=== PATIENT | female | born 1960 | race Caucasian/White ===

== ENCOUNTER → 2017-05-05 | Outpatient (CLI) | payer OTHER ==
--- NOTE | 2017-05-05 16:02 | XR ---
EXAMINATION TYPE: XR abdomen complete w decub DATE OF EXAM: 05/05/2017 COMPARISON: NONE HISTORY: Constipation lower abdominal pain TECHNIQUE: Supine, upright, and left side down lateral decubitus views of the abdomen are obtained. FINDINGS: Degenerative change lower lumbar spine. Nonspecific calcifications in the pelvis. All gas p attern nonspecific with no diagnostic evidence of obstruction. Metallic density overlying the right a bdomen may represent bowel content. Correlate clinically to exclude previous surgery. Assessment for free air limited due to lack of inclusion of the upper abdomen. IMPRESSION: 1. Limited exam as upper abdomen is not included. Bowel gas pattern demonstrates extensive retained f ecal debris correlate for constipation. 2. Metallic densities overlying the right abdomen could be related to previous surgical clips or repr esent bowel content. Correlate clinically.
== END | disposition home or self-care (01) ==
LOC: RADXRMAIN 15:40
PROVIDERS: ATTEND Family Medicine
DX: T18.2XXA Foreign body in stomach, initial encounter (principal)
CPT/HCPCS: 74020

== ENCOUNTER 2017-07-07 08:42 | Emergency (ER) | payer OTHER ==
[2017-07-07 08:46] VITALS: BP 117/68; PULSE 84; RESP 16; TEMP 97.2
--- NOTE | 2017-07-07 08:54 | ED ---
General Adult HPI - General Chief complaint: ENT Stated complaint: Ear Pain Time Seen by Provider: 07/07/17 08:48 Source: patient, RN notes reviewed Mode of arrival: ambulatory Limitations: no limitations - History of Present Illness Initial comments: Patient 56-year-old female who presents emergency room today with a chief complaint of left-sided ear pain over the last 2 days. Does admit to sore throat with some congestion. States that she began having some increased ear pain over the last day. States that all the clinics were closed today so she came here to the emergency room. Patient denies any drainage or discharge from the ear. Patient denies any recent fever, chills, shortness of breath, chest pain, back pain, abdominal pain, nausea or vomiting, numbness or tingling, dysuria or hematuria, constipation or diarrhea, headaches or visual changes, or any other complaints. - Related Data Previous Rx's Medication Instructions Recorded Amoxicillin 500 mg PO Q8H 10 Days day 07/07/17 Ibuprofen [Motrin] 600 mg PO Q6HR PRN #30 day 07/07/17 Allergies Allergy/AdvReac Type Severity Reaction Status Date / Time codeine Allergy Unknown Verified 07/07/17 08:46 Review of Systems ROS Statement: Those systems with pertinent positive or pertinent negative responses have been documented in the HPI. ROS Other: All systems not noted in ROS Statement are negative. Past Medical History Past Medical History: No Reported History History of Any Multi-Drug Resistant Organisms: None Reported Past Surgical History: No Surgical Hx Reported, Section Past Psychological History: No Psychological Hx Reported Smoking Status: Former smoker Past Alcohol Use History: Rare Past Drug Use History: None Reported, Marijuana General Exam - General Exam Comments Initial Comments: General: The patient is awake and alert, in no distress, and does not appear acutely ill. Eye: Pupils are equal, round and reactive to light, extra-ocular movements are intact. No nystagmus. There is normal conjunctiva bilaterally. No signs of icterus. Ears, nose, mouth and throat: There are moist mucous membranes and no oral lesions. Increased redness and erythema to the left ear canal with decreased bony landmarks consistent with otitis media. Right TM is clear. No tenderness over the mastoid. Neck: The neck is supple, there is no tenderness or JVD. Cardiovascular: There is a regular rate and rhythm. No murmur, rub or gallop is appreciated. Respiratory: Lungs are clear to auscultation, respirations are non-labored, breath sounds are equal. No wheezes, stridor, rales, or rhonchi. Musculoskeletal: Normal ROM, no tenderness. Strength 5/5. Sensation intact. Pulses equal bilaterally 2+. Neurological: A&O x 3. CN II-XII intact, There are no obvious motor or sensory deficits. Coordination appears grossly intact. Speech is normal. Skin: Skin is warm and dry and no rashes or lesions are noted. Psychiatric: Cooperative, appropriate mood & affect, normal judgment. Limitations: no limitations Course Vital Signs 07/07/17 08:43 Temperature 97.2 F L Pulse Rate 84 Respiratory 16 Rate Blood Pressure 117/68 O2 Sat by Pulse 97 Oximetry Disposition Clinical Impression: Left acute otitis media Disposition: HOME SELF-CARE Condition: Good Instructions: Otitis Media (ED) Additional Instructions: Please use medication as discussed. Please follow-up with family doctor in the next 2 days of symptoms have not improved. Please return to emergency room if the symptoms increase or worsen or for any other concerns. Prescriptions: Amoxicillin 500 mg PO Q8H 10 Days day Ibuprofen [Motrin] 600 mg PO Q6HR PRN #30 day PRN Reason: Pain Referrals: Olinda Mayberry MD [Primary Care Provider] - 1-2 days Time of Disposition: 08:53
== END 2017-07-07 09:15 | disposition home or self-care (01) ==
LOC: EC 08:42
DX: H66.92 Otitis media, unspecified, left ear (principal); J02.9 Acute pharyngitis, unspecified; R09.89 Other specified symptoms and signs involving the circulatory and respiratory systems; Z87.891 Personal history of nicotine dependence; Z88.5 Allergy status to narcotic agent
CPT/HCPCS: 99282

== ENCOUNTER 2017-08-22 10:25 | Day surgery (SDC) | payer OTHER ==
[2017-08-18 16:32] VITALS: BMI 35.4
[~2017-08-22 10:25] MED LIST: LACTATED RINGERS 1,000 ML IV SCH; LIDOCAINE 1% 20 ML VIAL (10MG/ML) FOR IV START INTRADERMA PRN
[2017-08-22 10:52] VITALS: RESP 16; TEMP 97.5
[2017-08-22] MEDS ORDERED: LIDOCAINE 1% INJ 10MG/ML (20 ML MDV) ONE (11:10)
[2017-08-22] MEDS ORDERED: PROPOFOL 10 MG/ML 20 ML VIAL IV ONE (11:10)
[2017-08-22 11:56] VITALS: BP 124/77; PULSE 70
--- NOTE | 2017-08-22 12:04 | P.PCN ---
Date of Procedure: 08/22/17 Procedure(s) Performed: Procedure: Total colonoscopy. Preoperative diagnosis: Left lower quadrant abdominal pain and change in bowel habits. Postoperative diagnosis: 1. Diverticulosis with significant diverticular disease in the sigmoid with no evidence of acute diverticulitis or strictures. 2. No polyps or cancer seen. Preparation: HalfLytely prep. Sedation: Was provided by anesthesia. Brief clinical history: The patient is a 56-year-old female was referred for this evaluation because of recurrent episodes of abdominal pain and constipation. She had a CT of the abdomen last month that showed diverticulosis with no evidence of acute diverticulitis or strictures. The patient believes she had 3 distinct episodes of pain that could have pain bouts of diverticulitis. She also experiences some pain during her menstrual periods. There is family history of colon cancer in her maternal grandfather Procedure: With the patient on her left lateral decubitus position and after informed consent and adequate sedation, the perianal area was inspected and it did not show any fissures or fistulas. There were no masses felt on digital rectal examination. The Olympus CFQ 160L video colonoscope was then inserted in the rectum in the usual fashion and advanced to the cecum. There was significant diverticular disease noted in the sigmoid with no evidence of acute diverticulitis or strictures. There was occasional small diverticular orifices seen scattered on the right side as well. The mucosa appeared healthy. No polyps or tumors were seen or any other pathology. I retroflexed the endoscope in the rectum before the endoscope was withdrawn. The patient tolerated the procedure well. Plan: The patient was reassured. Discussed dietary measures. She will follow- up with you as planned. As you know, if indeed these episodes of pain she gets are bouts of diverticulitis then she might be candidate for surgical evaluation , on the other hand, especially in light of her episodes of pain during menstrual periods, if this is related to spastic bowel or dietary intolerances , etc. then her treatment will be medical. I would be happy to see in follow- up in the office if her symptoms recur. As far as her screening colonoscopy, I would recommend repeat exam in 5 years.
== END 2017-08-22 12:17 | disposition home or self-care (01) ==
LOC: ORWHC2ENDO 10:25
DX: K57.30 Diverticulosis of large intestine without perforation or abscess without bleeding (principal); F32.9 Major depressive disorder, single episode, unspecified; G47.33 Obstructive sleep apnea (adult) (pediatric); Z88.5 Allergy status to narcotic agent; Z79.899 Other long term (current) drug therapy; Z80.0 Family history of malignant neoplasm of digestive organs; Z99.89 Dependence on other enabling machines and devices
CPT/HCPCS: 45378; 81025; J2001; J2704

== ENCOUNTER 2019-01-04 05:15 | Emergency (ER) | payer OTHER ==
[2019-01-04] MEDS ORDERED: KETOROLAC 30 MG/ML 1 ML VIAL IVP STA (06:05)
[2019-01-04] MEDS ORDERED: DIAZEPAM 5 MG/ML 2 ML INJ IVP STA (06:05)
--- NOTE | 2019-01-04 06:11 | ED ---
Back Pain HPI - General Source: patient, family Limitations: no limitations - History of Present Illness MD Complaint: back pain Onset/Timin -: days(s) Similar Symptoms Previously: No Place: home Severity: severe Quality: aching Consistency: constant Improves With: none Worsens With: none Associated Symptoms: denies other symptoms <Aakash Iniguez - Last Filed: 01/04/19 07:09> <Benito Moore - Last Filed: 01/04/19 08:17> - General Chief Complaint: Back Pain/Injury Stated Complaint: Back Pain Time Seen by Provider: 01/04/19 05:57 - History of Present Illness Initial Comments: This patient is a 58-year-old woman who presents to be evaluated for left upper back pain that is been going on for approximately 3 days. Patient describes as aching. She states that it had come on the day after she had helped her carry a heavy metal grate. Pain is constant, moderate to severe. She has not noted worsening or relieving factors. The patient states that her has tried rubbing her back which did help a little bit. She also tried warm compresses but that seemed to aggravate the pain. She states that ice did help to relieve a little bit as well. (Aakash Iniguez) - Related Data Home Medications Medication Instructions Recorded Confirmed Cephalexin [Keflex] 500 mg PO BID 01/04/19 01/04/19 Previous Rx's Medication Instructions Recorded Cyclobenzaprine [Flexeril] 10 mg PO TID PRN #12 tab 01/04/19 Allergies Allergy/AdvReac Type Severity Reaction Status Date / Time codeine AdvReac severe Verified 01/04/19 07:14 headache Opioids-Meperidine and AdvReac Nausea & Verified 01/04/19 07:14 Related Vomiting Review of Systems ROS Other: All systems not noted in ROS Statement are negative. Constitutional: Denies: fever, chills, weakness Respiratory: Denies: cough, dyspnea Cardiovascular: Reports: as per HPI, chest pain. Denies: palpitations, orthopnea, edema, syncope Gastrointestinal: Denies: abdominal pain, nausea, vomiting Genitourinary: Denies: dysuria, hematuria Musculoskeletal: Reports: as per HPI, back pain Skin: Denies: rash, lesions Neurological: Denies: headache, weakness, numbness Hematological/Lymphatic: Denies: easy bleeding <HiraAakash - Last Filed: 01/04/19 07:09> ROS Other: All systems not noted in ROS Statement are negative. <Benito Moore - Last Filed: 01/04/19 08:17> ROS Statement: Those systems with pertinent positive or pertinent negative responses have been documented in the HPI. Past Medical History Past Medical History: Cancer, Sleep Apnea/CPAP/BIPAP Additional Past Medical History / Comment(s): abdominal pain,fever,n/v,constip ation,no cpap,melanoma chest-2016 removed in office History of Any Multi-Drug Resistant Organisms: None Reported Past Surgical History: Section, Tubal Ligation Past Anesthesia/Blood Transfusion Reactions: Motion Sickness Past Psychological History: No Psychological Hx Reported Smoking Status: Former smoker Past Alcohol Use History: None Reported Past Drug Use History: None Reported - Past Family History Mother Family Medical History: No Reported History Father Family Medical History: Cancer Brother(s) Family Medical History: Cancer Additional Family Medical History / Comment(s): melanoma <Aakash Iniguez - Last Filed: 01/04/19 07:09> General Exam Limitations: no limitations General appearance: alert, in no apparent distress Head exam: Present: atraumatic, normocephalic Eye exam: Present: normal appearance. Absent: scleral icterus, conjunctival injection Neck exam: Present: normal inspection, full ROM. Absent: tenderness, meningismus Respiratory exam: Present: normal lung sounds bilaterally. Absent: respiratory distress, wheezes, rales, rhonchi, stridor Cardiovascular Exam: Present: regular rate, normal rhythm, normal heart sounds. Absent: systolic murmur, diastolic murmur, rubs, gallop GI/Abdominal exam: Present: soft. Absent: distended, tenderness, guarding, rebound Extremities exam: Present: normal inspection, normal capillary refill. Absent: pedal edema, calf tenderness Back exam: Present: normal inspection, paraspinal tenderness. Absent: CVA tenderness (R), CVA tenderness (L), vertebral tenderness Neurological exam: Present: alert. Absent: motor sensory deficit Skin exam: Present: warm, dry, intact, normal color. Absent: rash <HiraAakash - Last Filed: 01/04/19 07:09> Course Vital Signs 01/04/19 01/04/19 05:21 05:59 Temperature 98.2 F Pulse Rate 66 Respiratory 20 20 Rate Blood Pressure 121/83 O2 Sat by Pulse 96 Oximetry Medical Decision Making - Lab Data Result diagrams: 01/04/19 06:15 01/04/19 06:15 <Aakash Iniguez - Last Filed: 01/04/19 07:09> - Lab Data Result diagrams: 01/04/19 06:15 01/04/19 06:15 <Benito Moore - Last Filed: 01/04/19 08:17> - Medical Decision Making Patient was signed out to me by previous shift physician. Briefly, patient is a 58 her old female presents with left paraspinal upper back pain. Patient was worked up by previous shift physician with the workup. Patient negative d-dimer and cardiac workup. Patient was given analgesia with improvement of symptoms. This point patient's symptoms are secondary to musculoskeletal strain given history. Patient given baclofen. Patient reevaluated found to be in stable medical condition. Patient clear for discharge. Return parameters discussed. Prescription provided for Flexeril. Must follow-up with previous shift physician. (Benito Moore) - Lab Data Lab Results 01/04/19 01/04/19 01/04/19 Range/Units 06:15 06:15 06:15 WBC 6.1 (3.8-10.6) k/uL RBC 4.70 (3.80-5.40) m/uL Hgb 14.0 (11.4-16.0) gm/dL Hct 43.0 (34.0-46.0) % MCV 91.5 (80.0-100.0) fL MCH 29.7 (25.0-35.0) pg MCHC 32.5 (31.0-37.0) g/dL RDW 13.2 (11.5-15.5) % Plt Count 320 (150-450) k/uL Neutrophils % 43 % Lymphocytes % 45 % Monocytes % 8 % Eosinophils % 3 % Basophils % 0 % Neutrophils # 2.6 (1.3-7.7) k/uL Lymphocytes # 2.7 (1.0-4.8) k/uL Monocytes # 0.5 (0-1.0) k/uL Eosinophils # 0.2 (0-0.7) k/uL Basophils # 0.0 (0-0.2) k/uL D-Dimer (<0.60) mg/L FEU Sodium 140 (137-145) mmol/L Potassium 4.9 (3.5-5.1) mmol/L Chloride 109 H (98-107) mmol/L Carbon Dioxide 24 (22-30) mmol/L Anion Gap 7 mmol/L BUN 21 H (7-17) mg/dL Creatinine 0.58 (0.52-1.04) mg/dL Est GFR (CKD-EPI)AfAm >90 (>60 ml/min/1.73 sqM) Est GFR (CKD-EPI)NonAf >90 (>60 ml/min/1.73 sqM) Glucose 103 H (74-99) mg/dL Calcium 9.3 (8.4-10.2) mg/dL Troponin I <0.012 (0.000-0.034) ng/mL 01/04/19 Range/Units 06:15 WBC (3.8-10.6) k/uL RBC (3.80-5.40) m/uL Hgb (11.4-16.0) gm/dL Hct (34.0-46.0) % MCV (80.0-100.0) fL MCH (25.0-35.0) pg MCHC (31.0-37.0) g/dL RDW (11.5-15.5) % Plt Count (150-450) k/uL Neutrophils % % Lymphocytes % % Monocytes % % Eosinophils % % Basophils % % Neutrophils # (1.3-7.7) k/uL Lymphocytes # (1.0-4.8) k/uL Monocytes # (0-1.0) k/uL Eosinophils # (0-0.7) k/uL Basophils # (0-0.2) k/uL D-Dimer <0.17 (<0.60) mg/L FEU Sodium (137-145) mmol/L Potassium (3.5-5.1) mmol/L Chloride (98-107) mmol/L Carbon Dioxide (22-30) mmol/L Anion Gap mmol/L BUN (7-17) mg/dL Creatinine (0.52-1.04) mg/dL Est GFR (CKD-EPI)AfAm (>60 ml/min/1.73 sqM) Est GFR (CKD-EPI)NonAf (>60 ml/min/1.73 sqM) Glucose (74-99) mg/dL Calcium (8.4-10.2) mg/dL Troponin I (0.000-0.034) ng/mL Disposition <Aakash Iniguez - Last Filed: 01/04/19 07:09> Is patient prescribed a controlled substance at d/c from ED?: No Time of Disposition: 08:17 <Benito Moore - Last Filed: 01/04/19 08:17> Clinical Impression: Mid back pain Disposition: HOME SELF-CARE Prescriptions: Cyclobenzaprine [Flexeril] 10 mg PO TID PRN #12 tab PRN Reason: Pain Referrals: Olinda Mayberry MD [Primary Care Provider] - 1-2 days
[2019-01-04 06:32] LABS: Basophils % (A) 0 %; Eosinophils # (A) 0.2 k/uL (0-0.7); Eosinophils % (A) 3 %; Lymphocytes # (A) 2.7 k/uL (1.0-4.8); Lymphocytes % (A) 45 %; MCH 29.7 pg (25.0-35.0); MCHC 32.5 g/dL (31.0-37.0); MCV 91.5 fL (80.0-100.0); Mean Platelet Volume 6.9; Monocytes # (A) 0.5 k/uL (0-1.0); Monocytes % (A) 8 %; Neutrophils # (A) 2.6 k/uL (1.3-7.7); Neutrophils % (A) 43 %; Platelet Count 320 k/uL (150-450); RDW 13.2 % (11.5-15.5); WBC 6.1 k/uL (3.8-10.6)
[2019-01-04 06:40] LABS: Anion Gap 7 mmol/L; Blood Urea Nitrogen 21 mg/dL (7-17); Calcium 9.3 mg/dL (8.4-10.2); Carbon Dioxide 24 mmol/L (22-30); Chloride 109 mmol/L (98-107); Glucose 103 mg/dL (74-99); Potassium 4.9 mmol/L (3.5-5.1); Sodium 140 mmol/L (137-145)
[2019-01-04] MEDS ORDERED: HYDROmorphone 1 MG/ML 1 ML SYRINGE IVP STA (07:10)
[2019-01-04] MEDS ORDERED: BACLOFEN 10 MG TAB PO STA (07:32)
[2019-01-04 08:25] VITALS: BP 118/78; PULSE 65; RESP 18; TEMP 97.9
== END 2019-01-04 08:25 | disposition home or self-care (01) ==
LOC: EC 05:15
DX: M54.6 Pain in thoracic spine (principal); G47.30 Sleep apnea, unspecified; Z99.89 Dependence on other enabling machines and devices; Z87.891 Personal history of nicotine dependence; Z85.820 Personal history of malignant melanoma of skin; Z88.5 Allergy status to narcotic agent; Z53.29 Procedure and treatment not carried out because of patient's decision for other reasons
CPT/HCPCS: 36415; 93005; 85379; 80048; 84484; 85025; 99283; 96374; 96375; J3360; J1885

== ENCOUNTER 2020-03-28 16:36 | Inpatient (IN) | payer OTHER ==
[2020-03-28 18:05] LABS: Basophils % (A) 0 %; Eosinophils # (A) 0.1 k/uL (0-0.7); Eosinophils % (A) 0 %; HCT 41.4 % (34.0-46.0); HGB 13.4 gm/dL (11.4-16.0); Lymphocytes # (A) 1.8 k/uL (1.0-4.8); Lymphocytes % (A) 13 %; MCH 29.4 pg (25.0-35.0); MCHC 32.4 g/dL (31.0-37.0); MCV 90.9 fL (80.0-100.0); Mean Platelet Volume 6.5; Monocytes # (A) 0.7 k/uL (0-1.0); Monocytes % (A) 5 %; Neutrophils % (A) 80 %; Platelet Count 504 k/uL (150-450); RBC 4.55 m/uL (3.80-5.40); RDW 12.1 % (11.5-15.5); WBC 13.7 k/uL (3.8-10.6)
[2020-03-28 18:34] LABS: ALT 16 U/L (4-34); AST 25 U/L (14-36); African American GFR (CKD) >90 (>60 ml/min/1.73 sqM); Albumin 4.2 g/dL (3.5-5.0); Alkaline Phosphatase 98 U/L (38-126); Anion Gap 10 mmol/L; Blood Urea Nitrogen 11 mg/dL (7-17); Calcium 9.6 mg/dL (8.4-10.2); Carbon Dioxide 21 mmol/L (22-30); Chloride 105 mmol/L (98-107); Glucose 124 mg/dL (74-99); Non-African American GFR(CKD) >90 (>60 ml/min/1.73 sqM); Potassium 4.2 mmol/L (3.5-5.1); Sodium 136 mmol/L (137-145); Total Bilirubin 0.5 mg/dL (0.2-1.3); Total Protein 7.4 g/dL (6.3-8.2)
[2020-03-28] MEDS ORDERED: ASPIRIN 81 MG PO STA (19:49)
--- NOTE | 2020-03-28 19:53 | CT ---
EXAMINATION TYPE: CT abdomen pelvis w con DATE OF EXAM: 03/28/2020 COMPARISON: 07/21/2017 HISTORY: Nausea, vomiting, body aches and fever. CT DLP: 1320.3 mGycm Automated exposure control for dose reduction was used. CONTRAST: Performed with IV Contrast, patient injected with 100ml mL of Isovue 370. Images obtained from the diaphragm to the floor the pelvis with IV contrast. There is some patchy consolidation at the right posterior lung base with rounded 1.5 cm fluid density . There is small right pleural effusion. There is irregular 3 cm hypodense mass in the posterior righ t lobe of the liver. This appears to show delayed enhancement and consistent with hemangioma. Spleen is intact. There is no pancreatic mass. Stomach is intact. Gallbladder appears normal. Heart size is normal. There is no pericardial effusion. Kidneys show satisfactory contrast opacification. There is 1 cm hypodense rounded focus in the medial left kidney that could be a atypical cyst. There is no hydronephrosis. There is nonrotation of the r ight kidney. Ureters are not dilated. There is no retroperitoneal adenopathy. Bladder distends smooth ly. There is no inguinal hernia. There is no evidence of a pelvic mass. Uterus is anteverted. There a re sigmoid diverticula. There is no sign of diverticulitis. Appendix is close to the liver and appear s normal. There is no mesenteric edema. There is no ascites or free air. There are multiple sigmoid d iverticula. There are scattered diverticula in the descending colon. There is no evidence of a bowel obstruction. There is a mild degenerative first-degree L4-5 spondylolisthesis. The facet joints are i ntact. There is no compression fracture. Bony pelvis is intact. IMPRESSION: Consolidation at the right posterior lung base with rounded fluid density could relate to pneumonia a nd lung abscess and is a change compared to old exam. Small right pleural effusion. Colonic diverticulosis without diverticulitis. Normal appendix. Hypodense liver lesion in the posterior right lobe of the liver is possibly new compared to old CT sc an. Ultrasound recommended to confirm features of a hemangioma. Atypical cyst in the left kidney not changed in size compared to 07/21/2017 CT scan.
[2020-03-28] MEDS ORDERED: AZITHROMYCIN 500 MG TAB PO STA (19:57)
--- NOTE | 2020-03-28 20:00 | CT ---
EXAMINATION TYPE: CT chest angio for PE DATE OF EXAM: 03/28/2020 COMPARISON: None HISTORY: Dyspnea and painful expiration. CT DLP: 447.2 mGycm Automated exposure control for dose reduction was used. CONTRAST: Performed with IV Contrast, patient injected with 100ml mL of Isovue 370. There is some consolidation at the right posterior lung base with atelectasis. There is small right p leural effusion. There is 3 cm rounded area of fluid density at the right posterior lung base that co uld be an abscess within the right lower lobe. Heart size is normal. There is no pericardial effusion . There is mild coarsening of interstitial markings. There is no mediastinal adenopathy. Thoracic aorta is intact. There is no aneurysm or dissection. There are no hilar masses. I see no britany ling defects in the pulmonary arteries. The bony thorax is intact. There is no compression fracture. Sternum is intact. IMPRESSION: Right lower lobe consolidation and atelectasis with pleural fluid. Possible lung abscess. No evidence of pulmonary embolism.
[2020-03-28] MEDS ORDERED: PIPERACILLIN-TAZOBACTAM 3.375 GM in SODIUM CHLORIDE 0.9% 100 ML IVPB STA (20:02)
[2020-03-28] MEDS ORDERED: VANCOMYCIN IV PER PHARMACY 1 EACH MISC MISCELLANE PRN ×2 (20:02→23:48)
[2020-03-28 20:03] LABS: D-Dimer 0.56 mg/L FEU (<0.60); INR 1.1 (<1.2); Partial Thromboplastin Time 23.3 sec (22.0-30.0); Prothrombin Time 11.6 sec (9.0-12.0)
[2020-03-28] MEDS ORDERED: SODIUM CHLORIDE 0.9% 1,000 ML IV ONE (20:11)
[2020-03-28] MEDS ORDERED: SODIUM CHLORIDE 0.9% 500 ML 500 ML IV ONE (20:11)
[2020-03-28 20:14] LABS: C Reactive Protein 47.3 mg/L (<10.0); Magnesium 1.9 mg/dL (1.6-2.3)
[2020-03-28] MEDS ORDERED: VANCOMYCIN 1,500 MG in SODIUM CHLORIDE 0.9% 250 ML IVPB ONE (20:30)
[2020-03-28] MEDS: SODIUM CHLORIDE 0.9% 1,000 ML IV SCH (20:50)
--- NOTE | 2020-03-28 20:59 | ED ---
General Adult HPI - General Source: patient, RN notes reviewed, old records reviewed Mode of arrival: ambulatory Limitations: no limitations <Chris Barnard - Last Filed: 03/28/20 21:46> <Janette Davis - Last Filed: 04/02/20 23:14> - General Chief complaint: Fever Stated complaint: High Fever Time Seen by Provider: 03/28/20 17:03 - History of Present Illness Initial comments: 59-year-old female patient presents to ED for evaluation cough fever shortness of breath. Patient reports that starting on Tuesday 6 days ago she began to experience generalized myalgias. Patient reports that he continue to progress into some chest pain shortness of breath fevers. Patient assessed for Covid on Tuesday. She denies any prior lung issues never smoker no IV drug use. Denies any other complaints. Systemic: Pt denies fatigue, fever/chills, rash. Pt denies weakness, night sweats, weight loss. Neuro: Pt denies headache, visual disturbances, syncope or pre-syncope. HEENT: Pt denies ocular discharge or irritation, otalgia, rhinorrhea, pharyngitis or notable lymphadenopathy. Cardiopulmonary: Pt denies heart palpitations, dyspnea on exertion. Abdominal/GI: Pt denies abdominal pain, n/v/d. : Pt denies dysuria, burning w/ urination, frequency/urgency. Denies new onset urinary or bowel incontinence. MSK: Pt denies myalgia, loss of strength or function in extremities. Neuro: Pt denies new onset weakness, paresthesias. (Chris Barnard) - Related Data Home Medications Medication Instructions Recorded Confirmed No Known Home Medications 03/28/20 03/28/20 Allergies Allergy/AdvReac Type Severity Reaction Status Date / Time codeine AdvReac severe Verified 03/28/20 22:48 headache Opioids-Meperidine and AdvReac Nausea & Verified 03/28/20 22:48 Related Vomiting Review of Systems ROS Other: All systems not noted in ROS Statement are negative. <Chris Barnard - Last Filed: 03/28/20 21:46> ROS Other: All systems not noted in ROS Statement are negative. <Janette Davis - Last Filed: 04/02/20 23:14> ROS Statement: Those systems with pertinent positive or pertinent negative responses have been documented in the HPI. Past Medical History Past Medical History: Cancer, Sleep Apnea/CPAP/BIPAP Additional Past Medical History / Comment(s): abdominal pain,fever,n/v,constipation,no cpap,melanoma chest-2016 removed in office History of Any Multi-Drug Resistant Organisms: None Reported Past Surgical History: Section, Tubal Ligation Past Anesthesia/Blood Transfusion Reactions: Motion Sickness Past Psychological History: No Psychological Hx Reported Smoking Status: Never smoker Past Alcohol Use History: None Reported Past Drug Use History: None Reported - Past Family History Mother Family Medical History: No Reported History Father Family Medical History: Cancer Brother(s) Family Medical History: Cancer Additional Family Medical History / Comment(s): melanoma <Chris Barnard - Last Filed: 03/28/20 21:46> General Exam Limitations: no limitations <Chris Barnard - Last Filed: 03/28/20 21:46> - General Exam Comments Initial Comments: Constitutional: NAD, AOX3, Pt has pleasant affect. HEENT: NC/AT, trachea midline, neck supple, no lymphadenopathy. External ears appear normal, without discharge. Mucous membranes moist. Eyes PERRLA, EOM intact. There is no scleral icterus. No pallor noted. Cardiopulmonary: RRR, no murmurs, rubs or gallops, no JVD noted. Lungs CTAB in anterior and posterior syed. No peripheral edema. Abdominal exam: Abdomen soft and non-distended. Abdomen mildly tender right upper quadrant/right lower ribs. Bowel sounds active in LLQ. No hepatosplenomegaly. No ecchymosis Neuro: CN II-XII grossly intact. No nuchal rigidity. No raccon eyes, no sosa sign, no hemotympanum. No cervical spinal tenderness. MSK: No posterior calf tenderness bilaterally, homans sign negative bilaterally. Posterior tibialis and radial pulse +2 bilaterally. Sensation intact in upper and lower extremities. Full active ROM in upper and lower extremities, 5/5 stregnth. (Chris Barnard) Course Vital Signs 03/28/20 03/28/20 03/28/20 17:03 20:05 21:00 Temperature 100.4 F H 100.1 F H Pulse Rate 112 H 100 99 Respiratory 20 18 22 Rate Blood Pressure 116/74 113/73 113/73 O2 Sat by Pulse 95 98 95 Oximetry 03/28/20 22:09 Temperature Pulse Rate 68 Respiratory 18 Rate Blood Pressure 138/64 O2 Sat by Pulse 99 Oximetry Medical Decision Making - Lab Data Result diagrams: 03/28/20 17:50 03/28/20 17:50 - EKG Data -: EKG Interpreted by Me (and Dr. Davis ) <Chris Barnard - Last Filed: 03/28/20 21:46> - Lab Data Result diagrams: 03/30/20 08:23 04/02/20 06:21 <Janette Davis - Last Filed: 04/02/20 23:14> - Medical Decision Making 59-year-old female patient presents to ED for cough fever or shortness of breath ongoing for the last 6 days or so getting worse. Patient also displayed mild fever. Physical exam. Right upper quadrant/right lower rib tenderness. Patient reported that is where she is having her pain discomfort. Laboratory investigations reveal leukocytosis. CRP elevated. CT angios of her PE was performed this displayed right lower lobe consolidation and atelectasis with pleural fluid possible lung abscess. CT abdomen and pelvis displayed hypodense liver lesion possible hemangioma cysts unchanged from 2017 left kidney. EKG is nonischemic. Patient initiated on IV antibiotics fluids will be admitted for sepsis lung abscess further evaluation. Case discussed with Dr. Davis. (Chris Barnard) I was available for consultation in the emergency department. The history and physical exam were done by the midlevel provider. I was consulted for this patients care. I reviewed the case with the midlevel provider and based on their presentation of the patient, I agree with the assessment, medical decision making and plan of care as documented. Chart was dictated using [employer] dictation software. Attempts were made to correct any dictation errors however some typographical errors may persist. Patient was seen during a national state of emergency due to the Covid-19 pa ndemic. (Janette Davis) - Lab Data Lab Results 03/28/20 03/28/20 03/28/20 Range/Units 17:50 17:50 17:50 WBC 13.7 H (3.8-10.6) k/uL RBC 4.55 (3.80-5.40) m/uL Hgb 13.4 (11.4-16.0) gm/dL Hct 41.4 (34.0-46.0) % MCV 90.9 (80.0-100.0) fL MCH 29.4 (25.0-35.0) pg MCHC 32.4 (31.0-37.0) g/dL RDW 12.1 (11.5-15.5) % Plt Count 504 H (150-450) k/uL Neutrophils % 80 % Lymphocytes % 13 % Monocytes % 5 % Eosinophils % 0 % Basophils % 0 % Neutrophils # 11.0 H (1.3-7.7) k/uL Lymphocytes # 1.8 (1.0-4.8) k/uL Monocytes # 0.7 (0-1.0) k/uL Eosinophils # 0.1 (0-0.7) k/uL Basophils # 0.0 (0-0.2) k/uL PT (9.0-12.0) sec INR (<1.2) APTT (22.0-30.0) sec D-Dimer (<0.60) mg/L FEU Sodium 136 L (137-145) mmol/L Potassium 4.2 (3.5-5.1) mmol/L Chloride 105 (98-107) mmol/L Carbon Dioxide 21 L (22-30) mmol/L Anion Gap 10 mmol/L BUN 11 (7-17) mg/dL Creatinine 0.74 (0.52-1.04) mg/dL Est GFR (CKD-EPI)AfAm >90 (>60 ml/min/1.73 sqM) Est GFR (CKD-EPI)NonAf >90 (>60 ml/min/1.73 sqM) Glucose 124 H (74-99) mg/dL Plasma Lactic Acid Robbie 0.9 (0.7-2.0) mmol/L Calcium 9.6 (8.4-10.2) mg/dL Magnesium (1.6-2.3) mg/dL Ferritin (10.0-291.0) ng/mL Total Bilirubin 0.5 (0.2-1.3) mg/dL AST 25 (14-36) U/L ALT 16 (4-34) U/L Alkaline Phosphatase 98 (38-126) U/L Lactate Dehydrogenase (313-618) U/L Troponin I (0.000-0.034) ng/mL C-Reactive Protein (<10.0) mg/L Total Protein 7.4 (6.3-8.2) g/dL Albumin 4.2 (3.5-5.0) g/dL Procalcitonin (0.02-0.09) ng/mL Urine Color Urine Appearance (Clear) Urine pH (5.0-8.0) Ur Specific [place] (1.001-1.035) Urine Protein (Negative) Urine Glucose (UA) (Negative) Urine Ketones (Negative) Urine Blood (Negative) Urine Nitrite (Negative) Urine Bilirubin (Negative) Urine Urobilinogen (<2.0) mg/dL Ur Leukocyte Esterase (Negative) Urine RBC (0-5) /hpf Urine WBC (0-5) /hpf Ur Squamous Epith Cells (0-4) /hpf Urine Bacteria (None) /hpf Urine Mucus (None) /hpf Coronavirus (PCR) (Not Detected) 03/28/20 03/28/20 03/28/20 Range/Units 19:33 19:33 19:33 WBC (3.8-10.6) k/uL RBC (3.80-5.40) m/uL Hgb (11.4-16.0) gm/dL Hct (34.0-46.0) % MCV (80.0-100.0) fL MCH (25.0-35.0) pg MCHC (31.0-37.0) g/dL RDW (11.5-15.5) % Plt Count (150-450) k/uL Neutrophils % % Lymphocytes % % Monocytes % % Eosinophils % % Basophils % % Neutrophils # (1.3-7.7) k/uL Lymphocytes # (1.0-4.8) k/uL Monocytes # (0-1.0) k/uL Eosinophils # (0-0.7) k/uL Basophils # (0-0.2) k/uL PT 11.6 (9.0-12.0) sec INR 1.1 (<1.2) APTT 23.3 (22.0-30.0) sec D-Dimer 0.56 (<0.60) mg/L FEU Sodium (137-145) mmol/L Potassium (3.5-5.1) mmol/L Chloride (98-107) mmol/L Carbon Dioxide (22-30) mmol/L Anion Gap mmol/L BUN (7-17) mg/dL Creatinine (0.52-1.04) mg/dL Est GFR (CKD-EPI)AfAm (>60 ml/min/1.73 sqM) Est GFR (CKD-EPI)NonAf (>60 ml/min/1.73 sqM) Glucose (74-99) mg/dL Plasma Lactic Acid Robbie (0.7-2.0) mmol/L Calcium (8.4-10.2) mg/dL Magnesium 1.9 (1.6-2.3) mg/dL Ferritin 130.3 (10.0-291.0) ng/mL Total Bilirubin (0.2-1.3) mg/dL AST (14-36) U/L ALT (4-34) U/L Alkaline Phosphatase (38-126) U/L Lactate Dehydrogenase 500 (313-618) U/L Troponin I (0.000-0.034) ng/mL C-Reactive Protein 47.3 H (<10.0) mg/L Total Protein (6.3-8.2) g/dL Albumin (3.5-5.0) g/dL Procalcitonin (0.02-0.09) ng/mL Urine Color Urine Appearance (Clear) Urine pH (5.0-8.0) Ur Specific [place] (1.001-1.035) Urine Protein (Negative) Urine Glucose (UA) (Negative) Urine Ketones (Negative) Urine Blood (Negative) Urine Nitrite (Negative) Urine Bilirubin (Negative) Urine Urobilinogen (<2.0) mg/dL Ur Leukocyte Esterase (Negative) Urine RBC (0-5) /hpf Urine WBC (0-5) /hpf Ur Squamous Epith Cells (0-4) /hpf Urine Bacteria (None) /hpf Urine Mucus (None) /hpf Coronavirus (PCR) Not Detected (Not Detected) 03/28/20 03/28/20 03/28/20 Range/Units 19:33 19:33 20:54 WBC (3.8-10.6) k/uL RBC (3.80-5.40) m/uL Hgb (11.4-16.0) gm/dL Hct (34.0-46.0) % MCV (80.0-100.0) fL MCH (25.0-35.0) pg MCHC (31.0-37.0) g/dL RDW (11.5-15.5) % Plt Count (150-450) k/uL Neutrophils % % Lymphocytes % % Monocytes % % Eosinophils % % Basophils % % Neutrophils # (1.3-7.7) k/uL Lymphocytes # (1.0-4.8) k/uL Monocytes # (0-1.0) k/uL Eosinophils # (0-0.7) k/uL Basophils # (0-0.2) k/uL PT (9.0-12.0) sec INR (<1.2) APTT (22.0-30.0) sec D-Dimer (<0.60) mg/L FEU Sodium (137-145) mmol/L Potassium (3.5-5.1) mmol/L Chloride (98-107) mmol/L Carbon Dioxide (22-30) mmol/L Anion Gap mmol/L BUN (7-17) mg/dL Creatinine (0.52-1.04) mg/dL Est GFR (CKD-EPI)AfAm (>60 ml/min/1.73 sqM) Est GFR (CKD-EPI)NonAf (>60 ml/min/1.73 sqM) Glucose (74-99) mg/dL Plasma Lactic Acid Robbie (0.7-2.0) mmol/L Calcium (8.4-10.2) mg/dL Magnesium (1.6-2.3) mg/dL Ferritin (10.0-291.0) ng/mL Total Bilirubin (0.2-1.3) mg/dL AST (14-36) U/L ALT (4-34) U/L Alkaline Phosphatase (38-126) U/L Lactate Dehydrogenase (313-618) U/L Troponin I <0.012 (0.000-0.034) ng/mL C-Reactive Protein (<10.0) mg/L Total Protein (6.3-8.2) g/dL Albumin (3.5-5.0) g/dL Procalcitonin 0.10 H (0.02-0.09) ng/mL Urine Color Yellow Urine Appearance Clear (Clear) Urine pH 7.0 (5.0-8.0) Ur Specific [place] >1.050 H (1.001-1.035) Urine Protein Trace H (Negative) Urine Glucose (UA) Negative (Negative) Urine Ketones Negative (Negative) Urine Blood Trace H (Negative) Urine Nitrite Negative (Negative) Urine Bilirubin Negative (Negative) Urine Urobilinogen <2.0 (<2.0) mg/dL Ur Leukocyte Esterase Negative (Negative) Urine RBC 3 (0-5) /hpf Urine WBC 2 (0-5) /hpf Ur Squamous Epith Cells 2 (0-4) /hpf Urine Bacteria Rare H (None) /hpf Urine Mucus Rare H (None) /hpf Coronavirus (PCR) (Not Detected) - EKG Data EKG Comments: Ventricular rate 104, NE interval 144, QRS 90, QT/QTC 334/439. Sinus tachycardia, RSR or QR pattern in V1 suggests right ventricular conduction delay. No concern for acute ischemia at this time. (Chris Barnard) Disposition Is patient prescribed a controlled substance at d/c from ED?: No <Chris Barnard - Last Filed: 03/28/20 21:46> <Janette Davis - Last Filed: 04/02/20 23:14> Clinical Impression: Pneumonia, Lung abscess, Sepsis Disposition: ADMITTED IP TO THIS HOSP Condition: Stable
[2020-03-28 21:24] LABS: Appearance,Urine Clear (Clear); Bacteria,Urine Rare /hpf; Bilirubin,Urine Negative (Negative); Blood,Urine Trace (Negative); Color,Urine Yellow; Glucose,Urine (UA) Negative (Negative); Ketones,Urine Negative (Negative); Leukocyte Esterase,Urine Negative (Negative); Mucus,Urine Rare /hpf; Nitrite,Urine Negative (Negative); Protein,Urine Trace (Negative); RBC,Urine 3 /hpf (0-5); Squamous Epithelial Cell,Urine 2 /hpf (0-4); Urobilinogen,Urine <2.0 mg/dL (<2.0); WBC,Urine 2 /hpf (0-5)
[2020-03-28 21:31] LABS: Specific Gravity,Urine >1.050 (1.001-1.035)
[2020-03-28] MEDS ORDERED: ACETAMINOPHEN TAB 325 MG TAB PO STA (21:48)
[2020-03-28] MEDS ORDERED: MORPHINE SULFATE 4 MG/ML SYRINGE IV PRN (21:51)
[2020-03-28] MEDS ORDERED: NALOXONE 0.4 MG/ML 1 ML VIAL IV PRN (21:51)
[2020-03-28] MEDS ORDERED: ACETAMINOPHEN TAB 325 MG TAB PO PRN (21:51)
--- NOTE | 2020-03-28 23:51 | P.HPIM ---
History of Present Illness H&P Date: 03/28/20 The patient is a 59-year-old female with a PMH of obstructive sleep apnea who presented to the ED with complaints of gradually worsening shortness of breath, fever, malaise, pleuritic chest pain, and myalgias. The patient reports that her symptoms started on Thursday 03/22, after she returned from her [place]. She reports that the prior 3 days, she had been swimming in the [place] daily, and was in her usual state of health. Initially, she developed a mild sore throat followed by myalgias, progressive shortness of breath, pleuritic chest pain, nonproductive cough and low-grade fever. Her symptoms persisted and she attributed them to possibly having contracted Covid for which she was tested on Tuesday, though had not received the results yet. Her fever worsened 202 today at which time she decided to come to emergency room. She reports no prior history of pneumonias or lung infections. She reports that occasionally she aspirates on food, both liquids and solids, for which she has never been evaluated. Denied IV drug use or smoking. Denied nausea, vomiting, diarrhea, loss of smell or taste, or dysuria. She reports that all other members of the family are doing well and are asymptomatic. In the emergency room, a chest CTA revealed a right lower lobe consolidation with a possible lung abscess. CT abdomen and pelvis revealed hypodense liver lesion with follow-up ultrasound recommended. Patient was febrile with temperature 100.4, pulse 112, BP 116/74, and saturating 94% on room air. Laboratory evaluation revealed a WBC of 13.7, CRP 47.3, d-dimer 0.56, troponin less than 0.012, with LDH 500. Review of Systems Pertinent positives and negatives as discussed in HPI, a complete review of systems was performed and all other systems are negative. Past Medical History Past Medical History: Cancer, Sleep Apnea/CPAP/BIPAP Additional Past Medical History / Comment(s): abdominal pain,fever,n/v,constipation,no cpap,melanoma chest-2016 removed in office History of Any Multi-Drug Resistant Organisms: None Reported Past Surgical History: Section, Tubal Ligation Past Anesthesia/Blood Transfusion Reactions: Motion Sickness Past Psychological History: No Psychological Hx Reported Smoking Status: Never smoker Past Alcohol Use History: None Reported Past Drug Use History: None Reported - Past Family History Mother Family Medical History: No Reported History Father Family Medical History: Cancer Brother(s) Family Medical History: Cancer Additional Family Medical History / Comment(s): melanoma Medications and Allergies Home Medications Medication Instructions Recorded Confirmed Type No Known Home Medications 03/28/20 03/28/20 History Allergies Allergy/AdvReac Type Severity Reaction Status Date / Time codeine AdvReac severe Verified 03/28/20 22:48 headache Opioids-Meperidine and AdvReac Nausea & Verified 03/28/20 22:48 Related Vomiting Physical Exam Vitals: Vital Signs Temp Pulse Resp BP Pulse Ox 03/28/20 22:09 68 18 138/64 99 03/28/20 21:00 100.1 F H 99 22 113/73 95 03/28/20 20:05 100 18 113/73 98 03/28/20 17:03 100.4 F H 112 H 20 116/74 95 Intake and Output 03/28/20 03/28/20 03/29/20 14:59 22:59 06:59 Other: Weight 89.358 kg General: non toxic, no distress, appears at stated age, normal weight Derm: no unusual rashes/lesions no unusual ecchymoses, warm, dry Head: atraumatic, normocephalic, symmetric Eyes: EOMI, no lid lag, anicteric sclera, pupils equal round reactive to light ENT: Nose and ears atraumatic, no thrush, no pharyngeal erythema Neck: No thyromegaly, no cervical lymphadenopathy, trachea midline, supple Mouth: no lip lesion, mucus membranes moist Cardiovascular: S1S2 reg, no murmur, positive posterior tibial pulse bilateral, no edema, capillary refill less than 2 seconds Lungs: Clear to auscultation, no rales, rhonchi, or wheezing appreciated, no accessory muscle use Abdominal: soft, nontender to palpation, no guarding, no appreciable organomegaly, normal bowel sounds Ext: no gross muscle atrophy, muscle strength 5 out of 5 in all 4 extremities grossly, no contractures, Neuro: CN II-XI grossly intact, light touch intact all 4 extremities, finger to nose within normal limits, Psych: Alert, oriented, appropriate affect Results CBC & Chem 7: 03/28/20 17:50 03/28/20 17:50 Labs: Abnormal Lab Results - Last 24 Hours (Table) 03/28/20 03/28/20 03/28/20 Range/Units 17:50 17:50 19:33 WBC 13.7 H (3.8-10.6) k/uL Plt Count 504 H (150-450) k/uL Neutrophils # 11.0 H (1.3-7.7) k/uL Sodium 136 L (137-145) mmol/L Carbon Dioxide 21 L (22-30) mmol/L Glucose 124 H (74-99) mg/dL C-Reactive Protein 47.3 H (<10.0) mg/L Ur Specific [place] (1.001-1.035) Urine Protein (Negative) Urine Blood (Negative) Urine Bacteria (None) /hpf Urine Mucus (None) /hpf 03/28/20 Range/Units 20:54 WBC (3.8-10.6) k/uL Plt Count (150-450) k/uL Neutrophils # (1.3-7.7) k/uL Sodium (137-145) mmol/L Carbon Dioxide (22-30) mmol/L Glucose (74-99) mg/dL C-Reactive Protein (<10.0) mg/L Ur Specific [place] >1.050 H (1.001-1.035) Urine Protein Trace H (Negative) Urine Blood Trace H (Negative) Urine Bacteria Rare H (None) /hpf Urine Mucus Rare H (None) /hpf Assessment and Plan Plan: Sepsis secondary to pneumonia with abscess, likely secondary to aspiration, less likely Covid -Continue with vancomycin and Zosyn at this time -IV fluids -Follow up blood cultures -Consult pulmonary -Speech and swallow evaluation -Aspiration precautions -Supplemental oxygen Hypodense liver lesion on computed tomography scan -Order right upper quadrant ultrasound DVT prophylaxis -IPCDs The patient is admitted with an anticipated greater than 2 midnight stay for evaluation of lung abscess CODE STATUS: Full Code Discussed with: Patient, Anticipated discharge date: 3-[address]: Home A total of 40 minutes was spent on the care of this complex patient more than 50% of the time was spent in counseling and care coordination.
[2020-03-29] MEDS ORDERED: KETOROLAC 15 MG/ML 1 ML VIAL IVP STA (00:03)
[2020-03-29 02:09] LABS: Ferritin 130.3 ng/mL (10.0-291.0)
[2020-03-29] MEDS ORDERED: CYCLOBENZAPRINE 5 MG TAB PO STA (03:19)
[2020-03-29] MEDS: SODIUM CHLORIDE 0.9% 1,000 ML IV SCH ×3 (03:34→23:09)
[2020-03-29] MEDS: PIPERACILLIN-TAZOBACTAM 3.375 GM in SODIUM CHLORIDE 0.9% 100 ML IVPB SCH ×2 (05:32→12:43)
[2020-03-29] MEDS ORDERED: VANCOMYCIN 1,500 MG in SODIUM CHLORIDE 0.9% 250 ML IVPB SCH (06:00)
[2020-03-29] MEDS ORDERED: HYDROcodone/APAP 5-325MG 1 EACH TAB PO PRN (08:15)
[2020-03-29] MEDS: KETOROLAC 15 MG/ML 1 ML VIAL IVP PRN ×3 (08:28→20:18)
--- NOTE | 2020-03-29 09:24 | US ---
EXAMINATION TYPE: US abdomen limited DATE OF EXAM: 03/29/2020 COMPARISON: CT from yesterday. CLINICAL HISTORY: RUQ US for hypodense liver lesion. EXAM MEASUREMENTS: Liver Length: 14.4 cm Gallbladder Wall: 0.2 cm CBD: 0.5 cm Right Kidney: 8.3 x 3.9 x 4.0 cm Pancreas: hyperechoic, no masses seen Liver: attenuated posteriorly, superior right lobe hyperechoic lobular mass ( possible hemangioma) i s noted = 2.3 x 2.4 x 3.5cm Gallbladder: wnl Evidence for sonographic Haddad's sign: no CBD: wnl Right Kidney: noted small renal sinus, thick cortex and located medial abdomen Visualized pancreas shows no worrisome mass or ductal dilatation. Visualized liver is heterogeneously hyperechoic consistent with diffuse fatty infiltration. Evaluation for focal masses is suboptimal du e to the heterogeneity but there is is 3.5 x 2.4 x 2.3 cm lobulated hyperechoic lesion in the right h epatic dome corresponds to the hypodense lesion that shows progressive centripetal filling on delayed phase images consistent with benign hemangioma with ultrasound showing hyperechoic appearance. No in trahepatic ductal dilatation. Gallbladder is seen without shadowing gallstones. The right kidney rede monstrates abnormal anterior axis without hydronephrosis. IMPRESSION: The right hepatic lobe lesion has hyperechoic appearance, this along with CT findings are consistent with benign hemangioma measuring up to 3.5 cm long axis.
[2020-03-29 09:44] LABS: HCT 35.3 % (34.0-46.0); HGB 11.4 gm/dL (11.4-16.0); MCH 29.6 pg (25.0-35.0); MCHC 32.2 g/dL (31.0-37.0); MCV 91.7 fL (80.0-100.0); Mean Platelet Volume 6.5; Platelet Count 438 k/uL (150-450); RBC 3.85 m/uL (3.80-5.40); RDW 12.2 % (11.5-15.5); WBC 14.2 k/uL (3.8-10.6)
[2020-03-29 09:49] LABS: INR 1.2 (<1.2); Prothrombin Time 12.4 sec (9.0-12.0)
[2020-03-29 09:54] LABS: African American GFR (CKD) >90 (>60 ml/min/1.73 sqM); Anion Gap 8 mmol/L; Blood Urea Nitrogen 9 mg/dL (7-17); Carbon Dioxide 23 mmol/L (22-30); Chloride 106 mmol/L (98-107); Glucose 117 mg/dL (74-99); Non-African American GFR(CKD) >90 (>60 ml/min/1.73 sqM); Potassium 4.1 mmol/L (3.5-5.1); Sodium 137 mmol/L (137-145)
[2020-03-29] MEDS: VANCOMYCIN 1,500 MG in SODIUM CHLORIDE 0.9% 250 ML IVPB SCH ×2 (10:10→21:47)
[2020-03-29] MEDS: AMPICILLIN-SULBACTAM 3 GM in SODIUM CHLORIDE 0.9% 100 ML IVPB SCH ×2 (13:30→17:23)
[2020-03-29] MEDS: ACETAMINOPHEN TAB 500 MG TAB PO PRN ×2 (13:31→23:40)
[2020-03-29] MEDS: diazePAM 2 MG TAB PO PRN ×3 (13:31→23:40)
--- NOTE | 2020-03-29 13:43 | P.PN ---
Subjective Progress Note Date: 03/29/20 Principal diagnosis: Shortness of breath and chest pain Patient is a 59-year-old female with a history of obstructive sleep apnea not on CPAP machine, and melanoma who presented to the emergency department with complaints of fever, malaise, pleuritic chest pain, and james lgias. CT showed pneumonia and possible pulmonary abscess. Patient seen and examined at bedside. She still is having significant chest pain when she is trying to breathe or move. She states the Toradol helping. She is unable to tolerate any opiates secondary to severe nausea and vomiting. She is feeling tired and febrile. She denies any diarrhea. She is having some shortness of breath. She has never had pneumonia before, she does not have frequent infections. General: ill appearing, moderate distress, appears at stated age Derm: + diaphoretic, warm, dry Head: atraumatic, normocephalic, symmetric Eyes: EOMI, no lid lag, anicteric sclera Mouth: no lip lesion, mucus membranes dry Cardiovascular: S1S2 reg, no murmur, positive posterior tibial pulse bilateral, Lungs: rhonchi right base, no rhonchi, no rales , no accessory muscle use Abdominal: soft, nontender to palpation, no guarding, no appreciable organomegaly Ext: no gross muscle atrophy, no edema, no contractures Neuro: CN II-XI grossly intact, no focal neuro deficits Psych: Alert, oriented, appropriate affect Pneumonia with probable pulmonary abscess and sepsis -IV fluids -Discussed with TAMARA Howard and Ibrahima, Consult to CT surgery -Pulmonary recommendations appreciated - COVID testing negative in outpatient setting -Pulmonary hygiene -Cultures -Follow chest x-ray until clear Pleuritic chest pain secondary to abscess -Pain control -Add Valium as a muscle relaxer Liver hemangioma - outpatient follow-up Thrombocytosis, resolved DVT prophylaxis: SCDs Discussed with: Patient, nursing, Dr Kyle Anticipated discharge: 3-[address]: home A total of 40 minutes was spent on the care of this complex patient more than 50% of the time was spent in counseling and care coordination. Objective - Vital Signs Vital signs: Vital Signs Temp 98.4 F 03/29/20 12:40 Pulse 86 03/29/20 12:40 Resp 16 03/29/20 12:40 BP 115/69 03/29/20 12:40 Pulse Ox 96 03/29/20 12:40 Intake & Output 03/28/20 03/29/20 03/29/20 18:59 06:59 18:59 Weight 89.358 kg 90.6 kg Other: # Voids 2 1 - Labs CBC & Chem 7: 03/29/20 09:25 03/29/20 09:25 Labs: Abnormal Lab Results - Last 24 Hours (Table) 03/28/20 03/28/20 03/28/20 Range/Units 17:50 17:50 19:33 WBC 13.7 H (3.8-10.6) k/uL Plt Count 504 H (150-450) k/uL Neutrophils # 11.0 H (1.3-7.7) k/uL PT (9.0-12.0) sec INR (<1.2) Sodium 136 L (137-145) mmol/L Carbon Dioxide 21 L (22-30) mmol/L Glucose 124 H (74-99) mg/dL C-Reactive Protein 47.3 H (<10.0) mg/L Procalcitonin (0.02-0.09) ng/mL Ur Specific [place] (1.001-1.035) Urine Protein (Negative) Urine Blood (Negative) Urine Bacteria (None) /hpf Urine Mucus (None) /hpf 03/28/20 03/28/20 03/29/20 Range/Units 19:33 20:54 09:25 WBC 14.2 H (3.8-10.6) k/uL Plt Count (150-450) k/uL Neutrophils # (1.3-7.7) k/uL PT (9.0-12.0) sec INR (<1.2) Sodium (137-145) mmol/L Carbon Dioxide (22-30) mmol/L Glucose (74-99) mg/dL C-Reactive Protein (<10.0) mg/L Procalcitonin 0.10 H (0.02-0.09) ng/mL Ur Specific [place] >1.050 H (1.001-1.035) Urine Protein Trace H (Negative) Urine Blood Trace H (Negative) Urine Bacteria Rare H (None) /hpf Urine Mucus Rare H (None) /hpf 03/29/20 03/29/20 Range/Units 09:25 09:25 WBC (3.8-10.6) k/uL Plt Count (150-450) k/uL Neutrophils # (1.3-7.7) k/uL PT 12.4 H (9.0-12.0) sec INR 1.2 H (<1.2) Sodium (137-145) mmol/L Carbon Dioxide (22-30) mmol/L Glucose 117 H (74-99) mg/dL C-Reactive Protein (<10.0) mg/L Procalcitonin (0.02-0.09) ng/mL Ur Specific [place] (1.001-1.035) Urine Protein (Negative) Urine Blood (Negative) Urine Bacteria (None) /hpf Urine Mucus (None) /hpf
--- NOTE | 2020-03-29 14:17 | P.CNPUL ---
History of Present Illness Consult date: 03/29/20 Requesting physician: Kelsea Andrews Reason for consult: dyspnea, abnormal CXR/CT Chief complaint: Headache, fever, joint pain, shortness of breath History of present illness: This is a very pleasant 59-year-old female patient was a history of skin cancer. [place] [facility] [place] was doing [place] well. After her return home she developed joint pain headache fever as high as 103. She had some right sided chest discomfort. She thought maybe she had coving was checked in the outpatient setting that was reported as negative. She presented here to the emergency room last evening with ongoing symptoms. Computed tomography scan revealed consolidation at the right posterior lung base with rounded fluid density suspicious for pneumonia with lung abscess and small right pleural effusion. She is seen today in consultation on the selective care unit. She is up in a chair at the bedside. Awake and alert in no acute distress. She did have a temperature earlier today of 101.1. She is maintaining O2 saturations in the mid 90s on room air. She's been hemodynamically stable. White count 14.2. Hemoglobin 11.4. Sodium 137. Potassium 4.1. Creatinine 0.60. She's been initiated on Unasyn and vancomycin. Review of Systems REVIEW OF SYSTEMS: CONSTITUTIONAL: Positive for fatigue, weakness. Denies any recent significant weight loss or weight gain. EYES: Denies change in vision. EARS, NOSE, MOUTH, THROAT: Denies headaches, denies sore throat. CARDIOVASCULAR: Denies chest pain, palpitations or syncopal episodes. RESPIRATORY: Positive for shortness of breath, cough, congestion no hemoptysis. GASTROINTESTINAL: Denies change in appetite, denies abdominal pain GENITOURINARY: Denies hematuria, denies infections. MUSKULOSKELETAL: Positive for joint pain, denies swelling. INTEGUMENTARY: Denies rash, denies eczema. NEUROLOGICAL: Denies recent memory loss, no recent seizure activity. PSYCHIATRIC: Denies anxiety, denies depression. HEMATOLOGIC/LYMPHATIC: Denies anemia, denies enlarged lymph nodes. Past Medical History Past Medical History: Cancer, Sleep Apnea/CPAP/BIPAP Additional Past Medical History / Comment(s): abdominal pain,fever,n/v,constipation,no cpap,melanoma chest-2016 removed in office History of Any Multi-Drug Resistant Organisms: None Reported Past Surgical History: Section, Tubal Ligation Past Anesthesia/Blood Transfusion Reactions: Motion Sickness Past Psychological History: No Psychological Hx Reported Smoking Status: Never smoker Past Alcohol Use History: None Reported Past Drug Use History: None Reported - Past Family History Mother Family Medical History: No Reported History Father Family Medical History: Cancer Brother(s) Family Medical History: Cancer Additional Family Medical History / Comment(s): melanoma Medications and Allergies Home Medications Medication Instructions Recorded Confirmed Type No Known Home Medications 03/28/20 03/28/20 History Allergies Allergy/AdvReac Type Severity Reaction Status Date / Time codeine AdvReac severe Verified 03/28/20 22:48 headache Opioids-Meperidine and AdvReac Nausea & Verified 03/28/20 22:48 Related Vomiting Physical Exam Vitals: Vital Signs Temp Pulse Pulse Resp BP BP Pulse Ox 03/29/20 12:40 98.4 F 86 16 115/69 96 03/29/20 07:30 101.1 F H 97 16 117/61 95 03/29/20 03:05 98.4 F 87 18 107/70 95 03/28/20 23:35 100.4 F H 87 18 106/61 97 03/28/20 22:09 68 18 138/64 99 03/28/20 21:00 100.1 F H 99 22 113/73 95 03/28/20 20:05 100 18 113/73 98 03/28/20 17:03 100.4 F H 112 H 20 116/74 95 Intake and Output 03/28/20 03/29/20 03/29/20 22:59 06:59 14:59 Other: # Voids 2 1 Weight 89.358 kg 90.6 kg GENERAL EXAM: Alert, active, very pleasant 59-year-old female patient, on room air, comfortable in no apparent distress. HEAD: Normocephalic. EYES: Normal reaction of pupils, equal size. NOSE: Clear with pink turbinates. THROAT: No erythema or exudates. NECK: No masses, no JVD. CHEST: No chest wall deformity. LUNGS: Equal air entry with crackles, diminished in the right base. CVS: S1 and S2 normal with no audible murmur, regular rhythm. ABDOMEN: No hepatosplenomegaly, normal bowel sounds, no guarding or rigidity. SPINE: No scoliosis or deformity SKIN: No rashes CENTRAL NERVOUS SYSTEM: No focal deficits, tone is normal in all 4 extremities. EXTREMITIES: There is no peripheral edema. No clubbing, no cyanosis. Perip heral pulses are intact. Results - Laboratory Findings CBC and BMP: 03/29/20 09:25 03/29/20 09:25 PT/INR, D-dimer PT 12.4 sec (9.0-12.0) H 03/29/20 09:25 INR 1.2 (<1.2) H 03/29/20 09:25 D-Dimer 0.56 mg/L FEU (<0.60) 03/28/20 19:33 Abnormal lab findings: Abnormal Labs 03/28/20 03/28/20 03/28/20 17:50 17:50 19:33 WBC 13.7 H Plt Count 504 H Neutrophils # 11.0 H PT INR Sodium 136 L Carbon Dioxide 21 L Glucose 124 H C-Reactive Protein 47.3 H Procalcitonin Ur Specific [place] Urine Protein Urine Blood Urine Bacteria Urine Mucus 03/28/20 03/28/20 03/29/20 19:33 20:54 09:25 WBC 14.2 H Plt Count Neutrophils # PT INR Sodium Carbon Dioxide Glucose C-Reactive Protein Procalcitonin 0.10 H Ur Specific [place] >1.050 H Urine Protein Trace H Urine Blood Trace H Urine Bacteria Rare H Urine Mucus Rare H 03/29/20 03/29/20 09:25 09:25 WBC Plt Count Neutrophils # PT 12.4 H INR 1.2 H Sodium Carbon Dioxide Glucose 117 H C-Reactive Protein Procalcitonin Ur Specific [place] Urine Protein Urine Blood Urine Bacteria Urine Mucus - Diagnostic Findings Chest x-ray: image reviewed CT scan - chest: image reviewed Assessment and Plan Assessment: Febrile illness secondary to right lower lobe consolidation, suspect community- acquired pneumonia with possible abscess versus aspiration. Joint pain, fatigue, weakness secondary to above History of melanoma the chest removed 2016 Lifelong nonsmoker Plan: The patient was seen and evaluated by Dr. Barlow CAT scan and labs reviewed Obtain legionella antigen Follow-up chest x-ray in a.m. Currently on Unasyn and vancomycin per ID services We will continue to follow and make further recommendations based on her clinical status I, the cosigning physician, performed a history & physical examination of the patient. Lungs sounds with few crackles, diminished in the right lung base. Maintaining good O2 saturations in the 90s on room air. I discussed the assessment and plan of care with my nurse practitioner, Yelena Benavidez. I attest to the above consultation as dictated by her. Time with Patient: Greater than 30
--- NOTE | 2020-03-29 23:57 | P.CONS ---
History of Present Illness - Reason for Consult Consult date: 03/29/20 Pneumonia and lung abscess Requesting physician: Melody Brown - Chief Complaint Fever cough and shortness of breath x 6 days - History of Present Illness Patient is a 59-year-old female who recently was at her [facility] and apparently the patient did send in the [facility] patient was doing well came back home last Tuesday after getting home the patient started having some sore throat and generalized body aches off towards the pat ient had a low-grade fever and a cough which is mostly dry in nature symptom progress over the next few days and the patient had did have a Covid 19 testing done on Tuesday which came back negative patient symptoms continued progress with increasing shortness of breath on minimal exertion patient also have a cough that has increased in intensity HR having a right-sided pleuritic chest pain. His family more of a sharp intensity 78 her friend had no radiation and worse on taking a deep breath after was started having a fever of 103F with these symptoms the patient presented to the ER on arrival to the ER patient was evaluated by the ER physician patient did have CT of abdominal pelvis followed by CT angiogram of the chest with evidence of right lower lobe pneumonia and concern for possible abscess, patient also have elevated white count 13,000 which is up to 14,000 today, patient did have a fever 100.4 and subsequently spiked a fever of 101F patient has been started on vancomycin and Zosyn and admitted to the hospital infectious disease was consulted for further management of antibiotic therapy Review of Systems Positive point has been mentioned in the HPI rest of the systems are negative Past Medical History Past Medical History: Cancer, Sleep Apnea/CPAP/BIPAP Additional Past Medical History / Comment(s): abdominal pain,fever,n/v,constipation,no cpap,melanoma chest-2016 removed in office History of Any Multi-Drug Resistant Organisms: None Reported Past Surgical History: Section, Tubal Ligation Past Anesthesia/Blood Transfusion Reactions: Motion Sickness Past Psychological History: No Psychological Hx Reported Smoking Status: Never smoker Past Alcohol Use History: None Reported Past Drug Use History: None Reported - Past Family History Mother Family Medical History: No Reported History Father Family Medical History: Cancer Brother(s) Family Medical History: Cancer Additional Family Medical History / Comment(s): melanoma Medications and Allergies Home Medications Medication Instructions Recorded Confirmed Type No Known Home Medications 03/28/20 03/28/20 History Allergies Allergy/AdvReac Type Severity Reaction Status Date / Time codeine AdvReac severe Verified 03/28/20 22:48 headache Opioids-Meperidine and AdvReac Nausea & Verified 03/28/20 22:48 Related Vomiting Physical Exam Vitals: Vital Signs Temp Pulse Pulse Resp BP BP Pulse Ox 03/29/20 12:40 98.4 F 86 16 115/69 96 03/29/20 07:30 101.1 F H 97 16 117/61 95 03/29/20 03:05 98.4 F 87 18 107/70 95 03/28/20 23:35 100.4 F H 87 18 106/61 97 03/28/20 22:09 68 18 138/64 99 03/28/20 21:00 100.1 F H 99 22 113/73 95 03/28/20 20:05 100 18 113/73 98 03/28/20 17:03 100.4 F H 112 H 20 116/74 95 Intake and Output 03/28/20 03/29/20 03/29/20 22:59 06:59 14:59 Other: # Voids 2 1 Weight 89.358 kg 90.6 kg GENERAL DESCRIPTION: Middle-aged female lying in bed, no distress. No tachypnea or accessory muscle of respiration use. HEENT: Shows Pallor , no scleral icterus. Oral mucous membrane is dry. No pharyngeal erythema or thrush NECK: Trachea central, no thyromegaly. LUNGS: Unlabored breathing. Decreased breath sounds at the bases. No wheeze or crackle. HEART: S1, S2, regular rate and rhythm. No loud murmur ABDOMEN: Soft, no tenderness , guarding or rigidity, no organomegaly EXTREMITIES: No edema of feet. SKIN: No rash, no masses palpable. NEUROLOGICAL: The patient is awake, alert, oriented x3, mood and affect normal. Results CBC & Chem 7: 03/29/20 09:25 03/29/20 09:25 Labs: Abnormal Lab Results - Last 24 Hours (Table) 03/28/20 03/28/20 03/28/20 Range/Units 17:50 17:50 19:33 WBC 13.7 H (3.8-10.6) k/uL Plt Count 504 H (150-450) k/uL Neutrophils # 11.0 H (1.3-7.7) k/uL PT (9.0-12.0) sec INR (<1.2) Sodium 136 L (137-145) mmol/L Carbon Dioxide 21 L (22-30) mmol/L Glucose 124 H (74-99) mg/dL C-Reactive Protein 47.3 H (<10.0) mg/L Procalcitonin (0.02-0.09) ng/mL Ur Specific [place] (1.001-1.035) Urine Protein (Negative) Urine Blood (Negative) Urine Bacteria (None) /hpf Urine Mucus (None) /hpf 03/28/20 03/28/20 03/29/20 Range/Units 19:33 20:54 09:25 WBC 14.2 H (3.8-10.6) k/uL Plt Count (150-450) k/uL Neutrophils # (1.3-7.7) k/uL PT (9.0-12.0) sec INR (<1.2) Sodium (137-145) mmol/L Carbon Dioxide (22-30) mmol/L Glucose (74-99) mg/dL C-Reactive Protein (<10.0) mg/L Procalcitonin 0.10 H (0.02-0.09) ng/mL Ur Specific [place] >1.050 H (1.001-1.035) Urine Protein Trace H (Negative) Urine Blood Trace H (Negative) Urine Bacteria Rare H (None) /hpf Urine Mucus Rare H (None) /hpf 03/29/20 03/29/20 Range/Units 09:25 09:25 WBC (3.8-10.6) k/uL Plt Count (150-450) k/uL Neutrophils # (1.3-7.7) k/uL PT 12.4 H (9.0-12.0) sec INR 1.2 H (<1.2) Sodium (137-145) mmol/L Carbon Dioxide (22-30) mmol/L Glucose 117 H (74-99) mg/dL C-Reactive Protein (<10.0) mg/L Procalcitonin (0.02-0.09) ng/mL Ur Specific [place] (1.001-1.035) Urine Protein (Negative) Urine Blood (Negative) Urine Bacteria (None) /hpf Urine Mucus (None) /hpf Assessment and Plan Assessment: 1- patient presented to hospital with sepsis in this patient who did have a fever tachycardia and elevated white count source is right lower lobe pneumonia with consult for possible community acquired versus aspiration etiology and concern for possible right lung abscess (1) Lung abscess Current Visit: Yes Status: Acute Code(s): J85.2 - ABSCESS OF LUNG WITHOUT PNEUMONIA SNOMED Code(s): 72657271 (2) Pneumonia Current Visit: Yes Status: Acute Code(s): J18.9 - PNEUMONIA, UNSPECIFIED ORGANISM SNOMED Code(s): 306022846 (3) Sepsis Current Visit: Yes Status: Acute Code(s): A41.9 - SEPSIS, UNSPECIFIED ORGANISM SNOMED Code(s): 62444102 Plan: 1- we will obtain sputum for Gram stain and culture 2- CT surgery evaluation for possible consideration of drainage of the abscess 3-Vancomycin pharmacy to dose target trough of 15 while watching his kidney function and Vanco trough closely 4-discontinue Zosyn and add Unasyn to cover for the gram-negative and anaerobes We will follow on clinical condition and cultures to further adjust medication if needed Thank you for this consultation will follow this patient with you Time with Patient: Greater than 30
[2020-03-30] MEDS: KETOROLAC 15 MG/ML 1 ML VIAL IVP PRN ×2 (03:10→10:21)
[2020-03-30] MEDS: AMPICILLIN-SULBACTAM 3 GM in SODIUM CHLORIDE 0.9% 100 ML IVPB SCH ×4 (04:00→20:32)
[2020-03-30] MEDS: diazePAM 2 MG TAB PO PRN ×3 (07:03→20:32)
[2020-03-30] MEDS: ACETAMINOPHEN TAB 500 MG TAB PO PRN ×3 (07:03→20:32)
--- NOTE | 2020-03-30 07:40 | XR ---
EXAMINATION TYPE: XR chest 1V portable DATE OF EXAM: 03/30/2020 Comparison: 02/06/[address] 03/28/2020 Clinical History: 59-year-old female RLL pneumonia Findings: Right heart margin obscured by adjacent pleural parenchymal opacity. Possible trace left effusion. rspace opacity now occupying the right mid and lower lung significantly worsened from the CT of 2019. Impression: Significant worsening from the CT of 03/28/2020 now with airspace disease occupying the right middle a nd lower lung. Correlate for worsening pneumonia.
[2020-03-30 08:56] LABS: HCT 33.6 % (34.0-46.0); HGB 10.6 gm/dL (11.4-16.0); MCH 29.4 pg (25.0-35.0); MCHC 31.6 g/dL (31.0-37.0); Mean Platelet Volume 6.6; Platelet Count 393 k/uL (150-450); RBC 3.61 m/uL (3.80-5.40); RDW 12.3 % (11.5-15.5); WBC 11.4 k/uL (3.8-10.6)
[2020-03-30] MEDS ORDERED: VANCOMYCIN TROUGH DUE 1 EACH MISC MISCELLANE ONE (09:00)
[2020-03-30 09:05] LABS: INR 1.1 (<1.2); Prothrombin Time 11.6 sec (9.0-12.0)
[2020-03-30 09:10] LABS: African American GFR (CKD) >90 (>60 ml/min/1.73 sqM); Anion Gap 8 mmol/L; Blood Urea Nitrogen 5 mg/dL (7-17); Calcium 8.8 mg/dL (8.4-10.2); Carbon Dioxide 24 mmol/L (22-30); Chloride 104 mmol/L (98-107); Glucose 188 mg/dL (74-99); Non-African American GFR(CKD) >90 (>60 ml/min/1.73 sqM); Potassium 3.6 mmol/L (3.5-5.1); Sodium 136 mmol/L (137-145)
[2020-03-30] MEDS: SODIUM CHLORIDE 0.9% 1,000 ML IV SCH ×2 (09:40→10:49)
[2020-03-30] MEDS: VANCOMYCIN 1,500 MG in SODIUM CHLORIDE 0.9% 250 ML IVPB SCH ×3 (10:20→23:34)
--- NOTE | 2020-03-30 11:46 | P.GSCN ---
History of Present Illness Consult date: 03/30/20 Reason for Consult: Pulmonary abscess Requesting physician: Melody Son History of present illness: This is a 59-year-old female patient who does not follow with the primary care physician on a regular basis. She has a past medical history significant for basal cell carcinoma, status post resection to her face, difficulty swallowing, sleep apnea, depression, anxiety and daily marijuana use. According to the p atient on 03/23/2020 she developed a fever, shortness of breath, headache, body aches, nausea, vomiting and pain to her right chest and right flank area. On 03/26/2020 the patient was concerned that she had COVID 19 and was tested at [facility], which according the patient was negative result. She denies any cough, hemoptysis, weight loss, sore throat, or change in appetite. The patient continued to have elevated fever, progressive shortness of breath and increased pain to her right chest and presented to the emergency department here at [facility] on 03/28/2020. Laboratory results on presentation showed an elevated WBC of 13.7, C-reactive protein 47.3 and pro calcitonin 0.10. Due to the patient's complaints of nausea and vomiting a computed tomography scan of her abdomen was completed which showed some consolidation at the right posterior lung base with rounded fluid density which could relate to pneumonia and lung abscess and a small right pleural effusion. It also showed colonic diverticulosis without diverticulitis, a hypodense liver lesion in the posterior right lobe of the liver and an atypical cyst in the left kidney. A CT of the chest angio was also completed which demonstrated a right lower lobe consolidation and atelectasis with pleural fluid, possible lung abscess and no evidence of pulmonary embolism. Subsequently, due to the patient's presenting symptoms and findings on the computed tomography scan of her chest a consult was placed to Dr. Vinay Pak from cardiothoracic surgery for further evaluation and treatment recommendations. Her T-max temperature in the last 24 hours was 102.2F, and she is continuing to complain of right chest and right flank pain. Laboratory results this morning show a WBC count trending down 11.4, hemoglobin 10.6, platelets 393, BUN 5, creatinine 0.51 and an elevated glucose of 188. Infectious disease is following the patient and she is currently on Unasyn and vancomycin for antibiotic coverage. Review of Systems A 14 point review of systems was completed and was negative except as mentioned in the HPI. Past Medical History Past Medical History: Cancer (Basal cell carcinoma removed from her face in August 2018), Sleep Apnea/CPAP/BIPAP Additional Past Medical History / Comment(s): abdominal pain,fever,n/v,constipation,no cpap,melanoma chest-2016 removed in office History of Any Multi-Drug Resistant Organisms: None Reported Past Surgical History: Section, Tubal Ligation Additional Past Surgical History / Comment(s): Skin cancer removed from her face in August 2018 Past Anesthesia/Blood Transfusion Reactions: Motion Sickness Past Psychological History: Anxiety, Depression Smoking Status: Never smoker Past Alcohol Use History: None Reported Past Drug Use History: Marijuana - Past Family History Mother Family Medical History: No Reported History Father Family Medical History: Cancer Brother(s) Family Medical History: Cancer Additional Family Medical History / Comment(s): melanoma Medications and Allergies Home Medications Medication Instructions Recorded Confirmed Type No Known Home Medications 03/28/20 03/28/20 History Allergies Allergy/AdvReac Type Severity Reaction Status Date / Time codeine AdvReac severe Verified 03/28/20 22:48 headache Opioids-Meperidine and AdvReac Nausea & Verified 03/28/20 22:48 Related Vomiting Surgical - Exam Vital Signs Temp Pulse Resp BP Pulse Ox 100.4 F H 112 H 20 116/74 95 03/28/20 17:03 03/28/20 17:03 03/28/20 17:03 03/28/20 17:03 03/28/20 17:03 - General well developed, well nourished, no distress, moderate pain (To her right chest and flank area with palpitation) - Eyes PERRL, normal ocular movement - ENT normal pinna, normal nares, normal mucosa, no hearing loss, no congestion - Neck Neck is supple. no masses, no bruits, trachea midline, no venous distension - Respiratory Lungs sounds essentially clear to her bilateral upper lobes, diminished to her right lower lobe. No wheezes, rhonchi or crackles. Respirations are symmetrical and nonlabored. Oxygen saturation are 95% on room air. - Cardiovascular Regular rhythm and rate. S1 and S2 present, negative for S3, gallop or murmur. Remote telemetry showing normal sinus rhythm heart rate 89. No edema present. - Abdomen Abdomen is soft, nontender and nondistended. Active bowel sounds present in all 4 abdominal quadrants. No guarding or rigidity. No organomegaly appreciated. - Genitourinary Deferred - Rectum Deferred - Integumentary no rash, no growths, no abnormal pigmentation - Neurologic Cranial nerves II through XII intact. normal coordination, normal sensation - Musculoskeletal normal gait, normal posture - Psychiatric oriented to time, oriented to person, oriented to place, speech is normal, memory intact Results - Labs 03/30/20 08:23 03/30/20 08:23 Abnormal Lab Results - Last 24 Hours (Table) 03/30/20 03/30/20 Range/Units 08:23 08:23 WBC 11.4 H (3.8-10.6) k/uL RBC 3.61 L (3.80-5.40) m/uL Hgb 10.6 L (11.4-16.0) gm/dL Hct 33.6 L (34.0-46.0) % Sodium 136 L (137-145) mmol/L BUN 5 L (7-17) mg/dL Creatinine 0.51 L (0.52-1.04) mg/dL Glucose 188 H (74-99) mg/dL Microbiology - Last 24 Hours (Table) 03/28/20 17:50 Blood Culture - Preliminary Blood No Growth after 24 hours Diabetes panel 03/30/20 Range/Units 08:23 Sodium 136 L (137-145) mmol/L Potassium 3.6 (3.5-5.1) mmol/L Chloride 104 (98-107) mmol/L Carbon Dioxide 24 (22-30) mmol/L BUN 5 L (7-17) mg/dL Creatinine 0.51 L (0.52-1.04) mg/dL Glucose 188 H (74-99) mg/dL Calcium 8.8 (8.4-10.2) mg/dL Calcium panel 03/30/20 Range/Units 08:23 Calcium 8.8 (8.4-10.2) mg/dL Pituitary panel 03/30/20 Range/Units 08:23 Sodium 136 L (137-145) mmol/L Potassium 3.6 (3.5-5.1) mmol/L Chloride 104 (98-107) mmol/L Carbon Dioxide 24 (22-30) mmol/L BUN 5 L (7-17) mg/dL Creatinine 0.51 L (0.52-1.04) mg/dL Glucose 188 H (74-99) mg/dL Calcium 8.8 (8.4-10.2) mg/dL Adrenal panel 03/30/20 Range/Units 08:23 Sodium 136 L (137-145) mmol/L Potassium 3.6 (3.5-5.1) mmol/L Chloride 104 (98-107) mmol/L Carbon Dioxide 24 (22-30) mmol/L BUN 5 L (7-17) mg/dL Creatinine 0.51 L (0.52-1.04) mg/dL Glucose 188 H (74-99) mg/dL Calcium 8.8 (8.4-10.2) mg/dL - Imaging Chest x-ray: report reviewed, image reviewed CT scan - chest: report reviewed, image reviewed Assessment and Plan Assessment: 1. Fever, secondary to right lower lobe consolidation, suspect community- acquired pneumonia with possible abscess versus aspiration 2. Weakness with, joint pain and body aches 3. History of basal cell carcinoma removed from her face in August 2018 4. Daily marijuana use 5. History of aspiration, difficulty swallowing Plan: The patient was seen and examined at her bedside on the cardiac stepdown unit with her present. Her chart and diagnostics were reviewed. Her case was discussed in detail with Dr. Vinay Pak from cardiothoracic surgery. No surgical intervention is warranted at this time. Continue to manage with antibiotics, managed by infectious disease. We will order an incentive spirometry and encourage use 10 times every hour while awake. Follow COVID 19 results sent on 03/28/2020. We will continue to follow the patient with more recommendations to follow based on patient's clinical course. Thank you Dr. Son for this consult and we look for to working with you in the care of this patient. Time with Patient: Greater than 30
--- NOTE | 2020-03-30 12:57 | P.PN ---
Subjective Progress Note Date: 03/30/20 Principal diagnosis: Right lower lobe community-acquired pneumonia This is a very pleasant 59-year-old female patient was a history of skin cancer. [place] [facility] [place] was [place]. After her return home she developed joint pain headache fever as high as 103. She had some right sided chest discomfort. She thought maybe she had coving was checked in the outpatient setting that was reported as negative. She presented here to the emergency room last evening with ongoing symptoms. Computed tomography scan revealed consolidation at the right posterior lung base with rounded fluid density suspicious for pneumonia with lung abscess and small right pleural effusion. She is seen today in consultation on the selective care unit. She is up in a chair at the bedside. Awake and alert in no acute distress. She did have a temperature earlier today of 101.1. She is maintaining O2 saturations in the mid 90s on room air. She's been hemodynamically stable. White count 14.2. Hemoglobin 11.4. Sodium 137. Potassium 4.1. Creatinine 0.60. She's been initiated on Unasyn and vancomycin. The patient is seen today 03/30/2020 in follow-up on the selective care unit. She is currently sitting up in a chair at the bedside. Awake and alert in no acute distress. She is maintaining good O2 saturations in the mid 90s on room air. She continues to spike fevers currently 100.1. She is slightly tachycardic. No tachypnea. Blood culture reveals no growth to date. White count 11.4. Hemoglobin 10.6. Sodium 136. Potassium 3.6. Creatinine 0.51. Pro-calcitonin 0.10. C-reactive protein 47.3. LDH 500. Chest x-ray shows worsening airspace disease occupying the right middle and lower lung. She remains on Unasyn and vancomycin. ID is on the case. Objective - Vital Signs Vital signs: Vital Signs Temp 100.1 F H 03/30/20 07:57 Pulse 108 H 03/30/20 07:57 Resp 16 03/30/20 07:57 BP 128/66 03/30/20 07:57 Pulse Ox 95 03/30/20 07:57 Intake & Output 03/29/20 03/30/20 03/30/20 18:59 06:59 18:59 Intake Total 1476 240 Output Total 500 Balance 976 240 Weight 90 kg Intake: Intake, IV Titration 1240 Amount Ampicillin-Sulbactam 3 gm 100 In Sodium Chloride 0.9% 100 ml @ 200 mls/hr IVPB Q6HR JORGE Rx#:[id number] Piperacillin-Tazobactam 3 100 .375 gm In Sodium Chloride 0.9% 100 ml @ 25 mls/hr IVPB Q8H JORGE Rx#: [id number] Sodium Chloride 0.9% 1, 1040 000 ml @ 130 mls/hr IV . Q7H42M JORGE Rx#:[id number] Oral 236 240 Output: Urine 500 Other: # Voids 2 1 1 - Exam GENERAL EXAM: Alert, active, very pleasant 59-year-old female patient, on room air, comfortable in no apparent distress. HEAD: Normocephalic. EYES: Normal reaction of pupils, equal size. NOSE: Clear with pink turbinates. THROAT: No erythema or exudates. NECK: No masses, no JVD. CHEST: No chest wall deformity. LUNGS: Equal air entry with crackles, diminished in the right base. CVS: S1 and S2 normal with no audible murmur, regular rhythm. ABDOMEN: No hepatosplenomegaly, normal bowel sounds, no guarding or rigidity. SPINE: No scoliosis or deformity SKIN: No rashes CENTRAL NERVOUS SYSTEM: No focal deficits, tone is normal in all 4 extremities. EXTREMITIES: There is no peripheral edema. No clubbing, no cyanosis. Peripheral pulses are intact. - Labs CBC & Chem 7: 03/30/20 08:23 03/30/20 08:23 Labs: Abnormal Lab Results - Last 24 Hours (Table) 03/30/20 03/30/20 Range/Units 08:23 08:23 WBC 11.4 H (3.8-10.6) k/uL RBC 3.61 L (3.80-5.40) m/uL Hgb 10.6 L (11.4-16.0) gm/dL Hct 33.6 L (34.0-46.0) % Sodium 136 L (137-145) mmol/L BUN 5 L (7-17) mg/dL Creatinine 0.51 L (0.52-1.04) mg/dL Glucose 188 H (74-99) mg/dL Microbiology - Last 24 Hours (Table) 03/28/20 17:50 Blood Culture - Preliminary Blood No Growth after 24 hours Assessment and Plan Assessment: Febrile illness secondary to right lower lobe consolidation, suspect community- acquired pneumonia with possible abscess versus aspiration. Initial CoVID screen in the outpatient setting reported as negative. Follow-up Covid screen from ER 03/28/2020 is pending. Joint pain, fatigue, weakness secondary to above History of skin cancer Lifelong nonsmoker Plan: The patient was seen and evaluated by Dr. Barlow Follow-up chest x-ray and labs reviewed Remains on Unasyn and vancomycin per ID services Legionella antigen pending Initial CoVID screen in the outpatient setting reported as negative Follow-up CoVID testing from ER pending Sputum culture pending We will continue to follow and make further recommendations based on her clinical status I, the cosigning physician, performed a history & physical examination of the patient. Lungs sounds with few crackles, diminished in the right lung base. Maintaining good O2 saturations in the 90s on room air. I discussed the assessment and plan of care with my nurse practitioner, Yelena Benavidez. I attest to the above note as dictated by her.
[2020-03-30] MEDS: ONDANSETRON 4 MG/2 ML VIAL IVP PRN (13:01)
--- NOTE | 2020-03-30 14:56 | P.PN ---
Subjective Progress Note Date: 03/30/20 Patient was seen and examined. No acute events overnight. Patient continues report excruciating pleuritic chest pain. Spastic pain improved after starting Valium. She refuses any narcotic medication willing to try tramadol. She denies any cough. She denies any chest pain or palpitations. No nausea or vomiting. No fever or chills. Objective - Vital Signs Vital signs: Vital Signs Temp 99.3 F 03/30/20 13:00 Pulse 101 H 03/30/20 13:00 Resp 16 03/30/20 13:00 BP 145/75 03/30/20 13:00 Pulse Ox 96 03/30/20 13:00 Intake & Output 03/29/20 03/30/20 03/30/20 18:59 06:59 18:59 Intake Total 1476 240 Output Total 500 Balance 976 240 Weight 90 kg Intake: Intake, IV Titration 1240 Amount Ampicillin-Sulbactam 3 gm 100 In Sodium Chloride 0.9% 100 ml @ 200 mls/hr IVPB Q6HR JORGE Rx#:[id number] Piperacillin-Tazobactam 3 100 .375 gm In Sodium Chloride 0.9% 100 ml @ 25 mls/hr IVPB Q8H JORGE Rx#: [id number] Sodium Chloride 0.9% 1, 1040 000 ml @ 130 mls/hr IV . Q7H42M JORGE Rx#:[id number] Oral 236 240 Output: Urine 500 Other: # Voids 2 1 1 - Exam General: [non toxic], [mild distress], [appears at stated age] Derm: [warm], [dry] Head: [atraumatic], [normocephalic], [symmetric] Eyes: [EOMI], [no lid lag], [anicteric sclera] Mouth: [no lip lesion], [mucus membranes moist] Cardiovascular: [S1S2 reg], [no murmur], [positive posterior tibial pulse bilateral], Lungs: [Decreased breath sounds worse on the right], [rhonchi over the right base] , [no accessory muscle use] Abdominal: [soft], [ nontender to palpation], [no guarding], [no appreciable organomegaly] Ext: [no gross muscle atrophy], [no edema], [no contractures] Neuro: [no focal neuro deficits] Psych: [Alert], [oriented], [appropriate affect] - Labs CBC & Chem 7: 03/30/20 08:23 03/30/20 08:23 Labs: Abnormal Lab Results - Last 24 Hours (Table) 03/30/20 03/30/20 Range/Units 08:23 08:23 WBC 11.4 H (3.8-10.6) k/uL RBC 3.61 L (3.80-5.40) m/uL Hgb 10.6 L (11.4-16.0) gm/dL Hct 33.6 L (34.0-46.0) % Sodium 136 L (137-145) mmol/L BUN 5 L (7-17) mg/dL Creatinine 0.51 L (0.52-1.04) mg/dL Glucose 188 H (74-99) mg/dL Microbiology - Last 24 Hours (Table) 03/28/20 17:50 Blood Culture - Preliminary Blood No Growth after 24 hours Assessment and Plan Assessment: Pneumonia with probable pulmonary abscess and sepsis -DC IVF and encourage hydration by mouth -Discussed with TAMARA Howard and Ibrahima -CT surgery records no surgical intervention at this -Pulmonary recommendations appreciated - COVID testing negative in outpatient setting -Pulmonary hygiene -Cultures -Follow chest x-ray until clear Anemia normocytic -Hemoglobin 10.6. -Likely dilutional. -Continue to monitor. -Repeat CBC tomorrow morning Pleuritic chest pain secondary to abscess -Pain control -Trial of tramadol -Add Valium as a muscle relaxer Liver hemangioma - outpatient follow-up Thrombocytosis, resolved
[2020-03-30] MEDS: traMADol 50 MG TAB PO PRN (17:14)
--- NOTE | 2020-03-30 23:25 | PN ---
PROGRESS NOTE DATE OF SERVICE: 03/30/2020 REASON FOR FOLLOWUP: Right lower lobe pneumonia and a question of abscess. INTERVAL HISTORY: The patient is currently afebrile. The patient is breathing more comfortably. Patient denies having any chest pain. She did have a cough decreased intensity but not bringing up any sputum. No nausea, no vomiting. No abdominal pain, no diarrhea. PHYSICAL EXAMINATION: Blood pressure 104/51 with pulse 100, temperature 99.8. She is 92% on room air. General description is a middle-aged female up in the chair in no distress. RESPIRATORY SYSTEM: Unlabored breathing, decreased breath sounds at the bases. No wheeze. HEART: S1, S2. Regular rate and rhythm. ABDOMEN: Soft, no tenderness. LABS: Hemoglobin is 10.6, white count 11.4, BUN of 5 creatinine 0.51. Vancomycin trough is low. DIAGNOSTIC IMPRESSION AND PLAN: Patient with right lower lobe pneumonia with concern for possible abscess, possible community-acquired versus aspiration. Patient is covered with Unasyn and vancomycin to continue. We will try to obtain a sputum to narrow down his antibiotics. Family had multiple questions. Those were answered. MMODL / IJN: [id number] /
[2020-03-31] MEDS: traMADol 50 MG TAB PO PRN (00:44)
[2020-03-31] MEDS: AMPICILLIN-SULBACTAM 3 GM in SODIUM CHLORIDE 0.9% 100 ML IVPB SCH ×4 (03:01→22:50)
[2020-03-31] MEDS: diazePAM 2 MG TAB PO PRN (03:02)
[2020-03-31] MEDS: ACETAMINOPHEN TAB 500 MG TAB PO PRN ×4 (03:02→20:23)
[2020-03-31 07:00] LABS: African American GFR (CKD) >90 (>60 ml/min/1.73 sqM); Non-African American GFR(CKD) >90 (>60 ml/min/1.73 sqM)
--- NOTE | 2020-03-31 08:00 | XR ---
EXAMINATION TYPE: XR chest 2V DATE OF EXAM: 03/31/2020 COMPARISON: 03/30/2020 HISTORY: 59-year-old female follow-up pneumonia TECHNIQUE: PA and lateral views FINDINGS: Right heart margin partially obscured by adjacent pleural parenchymal opacity. Continued moderate rig ht pleural effusion with associated opacity extending up to the midlung level. Minimal patchy periphe ral basilar atelectasis on the left. IMPRESSION: Continued moderate right effusion with adjacent atelectasis and/or consolidation extending up to the midlung level. Aeration may be minimally improved.
[2020-03-31] MEDS: ONDANSETRON 4 MG/2 ML VIAL IVP PRN ×3 (08:15→20:23)
[2020-03-31] MEDS: VANCOMYCIN 1,500 MG in SODIUM CHLORIDE 0.9% 250 ML IVPB SCH ×3 (08:42→19:28)
--- NOTE | 2020-03-31 11:05 | US ---
EXAMINATION TYPE: US chest DATE OF EXAM: 03/31/2020 COMPARISON: 03/31/2020 chest radiograph CLINICAL HISTORY: Markings for thoracentesis by pulmonary staff. RIGHT pleural effusion TECHNIQUE: Targeted ultrasound of the posterior lower right hemithorax EXAM MEASUREMENTS: Right Pleural Effusion pocket size: 4.7 cm - complex fluid collection Right skin surface to fluid distance: 3.7 cm Right side marked for possible thoracentesis outside the dept. Pulmonologists are able to review the images in the patient?s EMR. IMPRESSIONS: Loculated right pleural effusion. Right chest marked for possible thoracentesis.
--- NOTE | 2020-03-31 13:19 | P.PN ---
Subjective Progress Note Date: 03/31/20 Patient was seen and examined. No acute events overnight. Patient reports improved pleuritic chest pain since yesterday. Spastic pain improved after starting Valium. She denies any cough. She denies any chest pain or palpitations. No nausea or vomiting. No fever or chills. Objective - Vital Signs Vital signs: Vital Signs Temp 99.1 F 03/31/20 12:00 Pulse 90 03/31/20 12:00 Resp 16 03/31/20 08:00 BP 129/74 03/31/20 12:00 Pulse Ox 93 L 03/31/20 12:00 Intake & Output 03/30/20 03/31/20 03/31/20 18:59 06:59 18:59 Intake Total 1950 100 Balance 1950 100 Weight 89.3 kg Intake: Intake, IV Titration 1490 Amount Ampicillin-Sulbactam 3 gm 200 In Sodium Chloride 0.9% 100 ml @ 200 mls/hr IVPB Q6H JORGE Rx#:[id number] Sodium Chloride 0.9% 1, 1040 000 ml @ 130 mls/hr IV . Q7H42M JORGE Rx#:[id number] Vancomycin 1,500 mg In 250 Sodium Chloride 0.9% 250 ml @ 125 mls/hr IVPB Q12H JORGE Rx#:[id number] Oral 460 100 Other: # Voids 1 2 # Emeses 1 - Exam General: [non toxic], [mild distress], [appears at stated age] Derm: [warm], [dry] Head: [atraumatic], [normocephalic], [symmetric] Eyes: [EOMI], [no lid lag], [anicteric sclera] Mouth: [no lip lesion], [mucus membranes moist] Cardiovascular: [S1S2 reg], [no murmur], [positive posterior tibial pulse bilateral], Lungs: [Decreased breath sounds on the right], [rhonchi over the right base] , [no accessory muscle use] Abdominal: [soft], [ nontender to palpation], [no guarding], [no appreciable organomegaly] Ext: [no gross muscle atrophy], [no edema], [no contractures] Neuro: [no focal neuro deficits] Psych: [Alert], [oriented], [appropriate affect] - Labs CBC & Chem 7: 03/30/20 08:23 03/31/20 06:01 Labs: Abnormal Lab Results - Last 24 Hours (Table) 03/31/20 Range/Units 06:01 Creatinine 0.51 L (0.52-1.04) mg/dL Microbiology - Last 24 Hours (Table) 03/30/20 00:59 Blood Culture - Preliminary Blood No Growth after 24 hours 03/28/20 17:50 Blood Culture - Preliminary Blood No Growth after 48 hours Assessment and Plan Assessment: Pneumonia with probable pulmonary abscess and sepsis -DC IVF and encourage hydration by mouth -ID recs: Jossueo and Aggiesyn -CT surgery records no surgical intervention at this -Pulmonary recommendations appreciated - COVID testing negative in outpatient setting -Pulmonary hygiene -Chest ultrasound obtained for possible thoracentesis -Follow chest x-ray until clear Anemia normocytic -Hemoglobin 10.6. -Likely dilutional. -Continue to monitor. -Repeat CBC tomorrow morning Pleuritic chest pain secondary to abscess -Pain control -Trial of tramadol -Add Valium as a muscle relaxer Liver hemangioma - outpatient follow-up Thrombocytosis, resolved [Patient admitted for pneumonia with probable abscess. On IV antibiotics. Infe ctious disease and pulmonology on board. Chest ultrasound obtained for possible thoracentesis and culture. She is pending clinical improvement. Likely DC in 2 or 3 days.]
--- NOTE | 2020-03-31 13:33 | P.PN ---
Subjective Progress Note Date: 03/31/20 Principal diagnosis: Right lower lobe community-acquired pneumonia This is a very pleasant 59-year-old female patient was a history of skin cancer. She had recently been [place] the [facility] and [place] and was [place]. After her return home she developed joint pain headache fever as high as 103. She had some right sided chest discomfort. She thought maybe she had coving was checked in the outpatient setting that was reported as negative. She presented here to the emergency room last evening with ongoing symptoms. Computed tomography scan revealed consolidation at the right posterior lung base with rounded fluid density suspicious for pneumonia with lung abscess and small right pleural effusion. She is seen today in consultation on the selective care unit. She is up in a chair at the bedside. Awake and alert in no acute distress. She did have a temperature earlier today of 101.1. She is maintaining O2 saturations in the mid 90s on room air. She's been hemodynamically stable. White count 14.2. Hemoglobin 11.4. Sodium 137. Potassium 4.1. Creatinine 0.60. She's been initiated on Unasyn and vancomycin. The patient is seen today 03/30/2020 in follow-up on the selective care unit. She is currently sitting up in a chair at the bedside. Awake and alert in no acute distress. She is maintaining good O2 saturations in the mid 90s on room air. She continues to spike fevers currently 100.1. She is slightly tachycardic. No tachypnea. Blood culture reveals no growth to date. White count 11.4. Hemoglobin 10.6. Sodium 136. Potassium 3.6. Creatinine 0.51. Pro-calcitonin 0.10. C-reactive protein 47.3. LDH 500. Chest x-ray shows worsening airspace disease occupying the right middle and lower lung. She remains on Unasyn and vancomycin. ID is on the case. On 03/31/2020 patient seen in follow-up on selective care unit. She is resting in the recliner, in no acute distress, still having some right lower chest and back discomfort, though somewhat improved. Breathing improved, room air pulse ox is 93%, hemodynamically stable, still having some low-grade fevers, with a T- max of 100.7F in the last 24 hours. Today's chest x-ray has been reviewed showing continued moderate right pleural effusion with adjacent atelectasis and consolidation extending up to the mid lung level, with minimally improved aeration. Right chest ultrasound showed loculated right-sided pleural effusion, with right pleural effusion pocket size of 4.7 cm. Patient on combination of Unasyn and vancomycin. Today's labs 7 reviewed, showing white blood cell count of 11.4, hemoglobin of 10.6, sodium of 136, resting electrolytes are within normal limits, BUN of 5 creatinine 0.51. Patient is receiving morphine for chest pain control. No hemoptysis Objective - Vital Signs Vital signs: Vital Signs Temp 99.1 F 03/31/20 12:00 Pulse 90 03/31/20 12:00 Resp 16 03/31/20 08:00 BP 129/74 03/31/20 12:00 Pulse Ox 93 L 03/31/20 12:00 Intake & Output 03/30/20 03/31/20 03/31/20 18:59 06:59 18:59 Intake Total 1950 100 Balance 1950 100 Weight 89.3 kg Intake: Intake, IV Titration 1490 Amount Ampicillin-Sulbactam 3 gm 200 In Sodium Chloride 0.9% 100 ml @ 200 mls/hr IVPB Q6H JORGE Rx#:[id number] Sodium Chloride 0.9% 1, 1040 000 ml @ 130 mls/hr IV . Q7H42M JORGE Rx#:[id number] Vancomycin 1,500 mg In 250 Sodium Chloride 0.9% 250 ml @ 125 mls/hr IVPB Q12H JORGE Rx#:[id number] Oral 460 100 Other: # Voids 1 2 # Emeses 1 - Exam GENERAL EXAM: Alert, very pleasant, 59-year-old white female on room air, with a pulse ox of 93% comfortable in no apparent distress. HEAD: Normocephalic/atraumatic. EYES: Normal reaction of pupils, equal size. Conjunctiva pink, sclera white. NOSE: Clear with pink turbinates. THROAT: No erythema or exudates. NECK: No masses, no JVD, no thyroid enlargement, no adenopathy. CHEST: No chest wall deformity. Symmetrical expansion. LUNGS: Equal air entry with diminished breath sounds over right lower base, with crackles at bilateral bases, wheeze, rhonchi or dullness. CVS: Regular rate and rhythm, normal S1 and S2, no gallops, no murmurs, no rubs ABDOMEN: Soft, nontender. No hepatosplenomegaly, normal bowel sounds, no guarding or rigidity. EXTREMITIES: No clubbing, no edema, no cyanosis, 2+ pulses and upper and lower extremities. MUSCULOSKELETAL: Muscle strength and tone normal. SPINE: No scoliosis or deformity SKIN: No rashes CENTRAL NERVOUS SYSTEM: Alert and oriented -3. No focal deficits, tone is normal in all 4 extremities. PSYCHIATRIC: Alert and oriented -3. Appropriate affect. Intact judgment and insight. - Labs CBC & Chem 7: 03/30/20 08:23 03/31/20 06:01 Labs: Abnormal Lab Results - Last 24 Hours (Table) 03/31/20 Range/Units 06:01 Creatinine 0.51 L (0.52-1.04) mg/dL Microbiology - Last 24 Hours (Table) 03/30/20 00:59 Blood Culture - Preliminary Blood No Growth after 24 hours 03/28/20 17:50 Blood Culture - Preliminary Blood No Growth after 48 hours Assessment and Plan Plan: Febrile illness secondary to right lower lobe consolidation, suspect community- acquired pneumonia with possible abscess versus aspiration. Initial CoVID screen in the outpatient setting reported as negative. Follow-up Covid screen from ER 03/28/2020 not detected Joint pain, fatigue, weakness secondary to above History of skin cancer Lifelong nonsmoker Plan: We'll consult interventional radiology for placement of right chest pigtail catheter for drainage of the right-sided loculated pleural effusion. Pleural fluid cultures and cytology will be sent, patient will likely need administration of TPA. I performed a history & physical examination of the patient and discussed their management with my nurse practitioner, Rebeca Blood. I reviewed the nurse practitioner's note and agree with the documented findings and plan of care. Lung sounds are positive for diminished breath sounds. The findings and the impression was discussed with the patient. I attest to the documentation by the nurse practitioner. Time with Patient: Less than 30
[2020-03-31] MEDS ORDERED: VANCOMYCIN TROUGH DUE 1 EACH MISC MISCELLANE ONE (15:00)
--- NOTE | 2020-03-31 23:20 | PN ---
PROGRESS NOTE DATE OF SERVICE: 03/31/2020 REASON FOR FOLLOWUP: Right lower lobe pneumonia, possible abscess. INTERVAL HISTORY: The patient is currently afebrile. The patient is breathing more comfortably. The patient denies having any chest pain. She did have some cough with occasional sputum. No nausea, no vomiting. No abdominal pain or diarrhea. PHYSICAL EXAMINATION: Blood pressure 126/73 with a pulse of 90, temperature 97.6. She is 95% on room air. General description is a middle-aged female up in the bed in no distress. RESPIRATORY SYSTEM: Unlabored breathing with decreased breath sounds at the base. No wheeze. HEART: S1, S2. Regular rate and rhythm. ABDOMEN: Soft. No tenderness. EXTREMITIES: No edema of the feet. LABS: Hemoglobin is 10.6, white count 11.4, BUN of 5, creatinine 0.51. Sputum and blood culture so far pending. DIAGNOSTIC IMPRESSION AND PLAN: Patient with right lower lobe pneumonia with concern for possible abscess or aspiration. Patient is covered with Unasyn and vancomycin; to continue while waiting for the cultures to finalize. Continue supportive care. MMODL / IJN: [id number] /
[2020-03-31] MEDS: VANCOMYCIN 1,750 MG in SODIUM CHLORIDE 0.9% 500 ML 500 ML IVPB SCH (23:41)
[2020-04-01] MEDS: ACETAMINOPHEN TAB 500 MG TAB PO PRN ×3 (02:45→20:22)
[2020-04-01] MEDS: AMPICILLIN-SULBACTAM 3 GM in SODIUM CHLORIDE 0.9% 100 ML IVPB SCH ×4 (02:45→21:44)
[2020-04-01 06:52] LABS: African American GFR (CKD) >90 (>60 ml/min/1.73 sqM); Non-African American GFR(CKD) >90 (>60 ml/min/1.73 sqM)
--- NOTE | 2020-04-01 09:01 | XR ---
EXAMINATION TYPE: XR chest 2V DATE OF EXAM: 04/01/2020 COMPARISON: 03/31/2017 TECHNIQUE: PA and lateral views submitted. HISTORY: Cough, pneumonia FINDINGS: Bilateral areas of consolidation and small effusion on the right stable. Heart size stable no pneumot horax. Interstitium unchanged. Mild hypertrophic change of the spine. IMPRESSION: 1. Bilateral areas of infiltrate and pleural effusion greater on the right are stable.
--- NOTE | 2020-04-01 09:21 | P.PN ---
Subjective Progress Note Date: 04/01/20 Feels okay today, still has some chills, no chest pain, no abdominal pain, no nausea or vomiting Objective - Vital Signs Vital signs: Vital Signs Temp 99.3 F 04/01/20 03:55 Pulse 98 04/01/20 03:55 Resp 18 04/01/20 03:55 BP 134/73 04/01/20 03:55 Pulse Ox 93 L 04/01/20 03:55 Intake & Output 03/31/20 04/01/20 04/01/20 18:59 06:59 18:59 Intake Total 100 397 Balance 100 397 Weight 91 kg Intake: Oral 100 397 Other: # Voids 4 2 # Bowel Movements 1 # Emeses 1 - Exam General: [non toxic], [appears at stated age] Derm: [warm], [dry] Head: [atraumatic], [normocephalic], [symmetric] Eyes: [EOMI] Mouth: [no lip lesion] Cardiovascular: [S1S2 reg], [no murmur], [positive posterior tibial pulse bilateral], Lungs: [Decreased breath sounds on the right], [rhonchi over the right base] , [no accessory muscle use] Abdominal: [soft], [ nontender to palpation], [no guarding], [no appreciable organomegaly] Ext: [no gross muscle atrophy], [no edema] Neuro: [no focal neuro deficits] Psych: [Alert], [oriented], [appropriate affect] - Labs CBC & Chem 7: 03/30/20 08:23 04/01/20 06:03 Labs: Microbiology - Last 24 Hours (Table) 03/30/20 00:59 Blood Culture - Preliminary Blood No Growth after 48 hours 03/28/20 17:50 Blood Culture - Preliminary Blood No Growth after 72 hours 03/31/20 10:45 Gram Stain - Preliminary Sputum Sputum Culture - Preliminary Assessment and Plan Plan: Pneumonia with probable pulmonary abscess and sepsis -ID recs: Jossueo and Aggiesyn -CT surgery records no surgical intervention at this -Pulmonary recommendations appreciated - COVID testing negative in outpatient setting -Pulmonary hygiene -Chest ultrasound obtained for possible thoracentesis Follow recommendations from IR, pulmonology and cardiothoracic surgery for treatment options. Discussed with the patient and her family over the phone. Anemia normocytic -Hemoglobin 10.6. -Continue to monitor. Pleuritic chest pain secondary to abscess -Pain control -Pain control with tramadol Liver hemangioma - outpatient follow-up Thrombocytosis, resolved Disposition: Home in 2-3 days pending clinical progression]
[2020-04-01] MEDS: VANCOMYCIN 1,750 MG in SODIUM CHLORIDE 0.9% 500 ML 500 ML IVPB SCH ×3 (09:26→23:13)
--- NOTE | 2020-04-01 09:48 | P.PN ---
Subjective Progress Note Date: 04/01/20 Principal diagnosis: Pulmonary abcess with a previous medical history of basal cell carcinoma, status post resection to her face, difficulty swallowing, sleep apnea, depression, an xiety and daily marijuana use. Patient seen and examined this morning sitting in the chair on 3S, in no acute distress. She denies pain and states her shortness of breath is improving. Objective - Vital Signs Vital signs: Vital Signs Temp 99.3 F 04/01/20 03:55 Pulse 98 04/01/20 03:55 Resp 18 04/01/20 03:55 BP 134/73 04/01/20 03:55 Pulse Ox 93 L 04/01/20 03:55 Intake & Output 03/31/20 04/01/20 04/01/20 18:59 06:59 18:59 Intake Total 100 397 Balance 100 397 Weight 91 kg Intake: Oral 100 397 Other: # Voids 4 2 # Bowel Movements 1 # Emeses 1 - Constitutional General appearance: Present: average body habitus, no acute distress - Respiratory Details: Lungs sounds essentially clear to her bilateral upper lobes, diminished to her right lower lobe. No wheezes, rhonchi or crackles. Respirations are symmetrical and nonlabored. Oxygen saturation are 93% on 2L nasal cannula. - Cardiovascular Details: Regular rhythm and rate. S1 and S2 present. Telemetry showing normal sinus rhythm. No edema present. - Gastrointestinal Gastrointestinal Comment(s): Abdomen is soft, nontender and nondistended. Active bowel sounds present in all 4 abdominal quadrants. No guarding or rigidity. - Genitourinary Genitourinary Comment(s): Continues to void. - Neurologic Neurologic: Present: CNII-XII intact - Musculoskeletal Musculoskeletal: Present: gait normal, strength equal bilaterally - Psychiatric Psychiatric: Present: A&O x's 3 - Allied health notes Allied health notes reviewed: nursing - Labs CBC & Chem 7: 03/30/20 08:23 04/01/20 06:03 Labs: Microbiology - Last 24 Hours (Table) 03/30/20 00:59 Blood Culture - Preliminary Blood No Growth after 48 hours 03/28/20 17:50 Blood Culture - Preliminary Blood No Growth after 72 hours 03/31/20 10:45 Gram Stain - Preliminary Sputum Sputum Culture - Preliminary - Imaging and Cardiology Chest x-ray: image reviewed Assessment and Plan Assessment: 1. Fever, secondary to right lower lobe consolidation, suspect community- acquired pneumonia with possible abscess versus aspiration 2. Weakness with, joint pain and body aches 3. History of basal cell carcinoma removed from her face in August 2018 4. Daily marijuana use 5. History of aspiration, difficulty swallowing Plan: 1. Recommend no surgical intervention at this time, will reevaluate after long- term antibiotic completion. 2. Continue antibiotics per infectious disease. 3. Encourage incentive spirometer use 10x hour while awake. 4. Encourage frequent ambulation, up to chair. 5. Management of other comoribidites per primary care. 6. We will continue to follow the patient with more recommendations to follow based on patient's clinical course. Time with Patient: Greater than 30
--- NOTE | 2020-04-01 10:57 | PN ---
PROGRESS NOTE PULMONARY/CRITICAL CARE PROGRESS NOTE: DATE OF SERVICE: 04/01/2020 This is a 59-year-old female admitted with a diagnosis of right lower lobe pneumonia. We were concerned about possible abscess formation and parapneumonic effusion. Anyway, we did ask Interventional Radiology to consider placing a pigtail catheter in this patient. The plan was to give her tPA into the pleural space to break up the loculations. I did speak to Dr. Pak who thought that maybe the patient would benefit just from long-term antibiotics. Will see what Interventional Radiology says. The patient is still not much improved. She is having lots of pleuritic-type chest pain. She has very sharp pain on deep inspiration or when she coughs. The patient has a history of skin cancer. She is a lifelong nonsmoker. Her COVID testing was negative. PHYSICAL EXAMINATION: VITAL SIGNS: Current vital signs reviewed. Temperature is 99.3, heart rate 98, respiratory rate 18, blood pressure 134/73, mean 93 and 2 L saturations 94%. Appears in no acute distress. HEENT: Examination is grossly unremarkable. NECK: Supple. Full range of motion. No adenopathy or thyromegaly. Neck veins are flat. CARDIOVASCULAR: Examination reveals a regular rhythm and rate. Heart rate right around 98 beats per minute. S1, S2 normal. LUNGS: Some diminished breath sounds at the right base. She does not want to take deep breaths. There are some coarse crackles and rhonchi at the right base. Left lung is clear. ABDOMEN: Soft. Bowel sounds are heard. EXTREMITIES: Intact. No cyanosis, clubbing, or edema. SKIN: Without rash. NEUROLOGIC: Examination is brief but nonfocal. LABS: Reviewed. Nothing new to report. Microbiology including blood and sputum sampling was negative. IMAGING: Chest x-ray from 04/01/2020 continues to show infiltrate at the right base. There is some right-sided pleural effusion. MEDICATIONS: Reviewed. She is on Unasyn and vancomycin for antibiotics. ASSESSMENT: 1. Right basilar pneumonia complicated by right-sided pleural effusion which is complex, as noted on ultrasound. 2. Community-acquired pneumonia, possible lung abscess with parapneumonic effusion. 3. History of skin cancer. 4. COVID testing negative. 5. Lifelong nonsmoker. PLAN: We have asked Interventional Radiology to consider pigtail catheter placement. She is on good antibiotics. Culture data thus far is negative. We will continue to follow. Additional recommendations and suggestions are forthcoming. MMODL / IJN: [id number] /
--- NOTE | 2020-04-01 14:05 | XR ---
EXAMINATION TYPE: XR chest 1V portable DATE OF EXAM: 04/01/2020 COMPARISON: NONE HISTORY: Thoracentesis TECHNIQUE: Single frontal view of the chest is obtained. FINDINGS: Persistent right-sided consolidation. Subsegmental changes left lung base with interval re duction in the amount of pleural fluid on the right. Tiny left effusion noted. No sizable pneumothora x. Heart size normal. IMPRESSION: 1. Persistent bilateral infiltrate with small bilateral effusion greater on the right. Findings are i mproved on the right postthoracentesis. 2. No sizable pneumothorax.
--- NOTE | 2020-04-01 14:09 | US ---
Ultrasound-guided therapeutic and diagnostic thoracentesis DATE OF EXAM: 04/01/2020 CLINICAL HISTORY: Tiny right pleural effusion request for sample for analysis The procedure was discussed with the patient. The risks, complications, benefits, and alternatives we re discussed and any questions were answered. Informed consent was obtained. The patient was placed supine on the ultrasound table and prepped and draped in the usual sterile fas hion. All elements of maximal barrier and sterile technique were utilized. Under ultrasound guidance, access into the pleural space was obtained, via the thoracentesis catheter system and direct ultrasound guidance. Ap proximately 60 cc of straw-colored fluid was removed. Sample sent to pathology for analysis. The patient was stable throughout the procedure and remained stable upon discharge from Department of Radiology. IMPRESSION: 1. Successful therapeutic and diagnostic thoracentesis under ultrasound guidance.
[2020-04-01 16:18] LABS: Appearance,BF Clear; RBC, Body Fluid 1215 /uL
[2020-04-01 16:20] LABS: Nucleated Cells, Body Fluid 810 /uL
[2020-04-01 16:25] LABS: Mononuclear WBC,Body Fluid 26 %; Polynuclear WBC,Body Fluid 74 %; Total Cells Counted,Body Fluid 100
[2020-04-01] MEDS: ONDANSETRON 4 MG/2 ML VIAL IVP PRN (17:10)
--- NOTE | 2020-04-02 00:48 | PN ---
PROGRESS NOTE DATE OF SERVICE: 04/01/2020 REASON FOR FOLLOWUP: Right lower lobe pneumonia and question of abscess or parapneumonic effusion. INTERVAL HISTORY: The patient is currently afebrile. The patient is status post thoracocentesis this afternoon. The patient has tolerated the procedure. The patient denies having any chest pain or shortness of breath. Minimal cough. No nausea, vomiting. No abdominal pain or diarrhea. PHYSICAL EXAMINATION: Blood pressure 121/72 with a pulse of 89, temperature 99.4. She is 93% on 2 L nasal cannula. General description is a middle-aged female lying in bed in no distress. RESPIRATORY SYSTEM: Unlabored breathing, decreased breath sounds at the bases. No wheeze. HEART: S1, S2. Regular rate and rhythm. ABDOMEN: Soft, no tenderness. LABS: Hemoglobin is 10.6, white count 11.4, BUN of 5, creatinine 0.51. Blood culture so far negative. Sputum is currently pending. DIAGNOSTIC IMPRESSION AND PLAN: Patient with right lower lobe pneumonia with concern for possible parapneumonic effusion. The patient is covered with vancomycin and Unasyn to continue while waiting for the culture to finalize and continue with supportive care. MMODL / IJN: [id number] /
[2020-04-02] MEDS: ACETAMINOPHEN TAB 500 MG TAB PO PRN ×4 (02:28→21:04)
[2020-04-02] MEDS: AMPICILLIN-SULBACTAM 3 GM in SODIUM CHLORIDE 0.9% 100 ML IVPB SCH ×4 (03:06→21:04)
[2020-04-02 04:59] LABS: Glucose, BF Source Pleural Fluid; Glucose, Body Fluid 35 mg/dL; LDH, Body Fluid Source Pleural Fluid
[2020-04-02] MEDS ORDERED: VANCOMYCIN TROUGH DUE 1 EACH MISC MISCELLANE ONE (07:00)
[2020-04-02 07:27] LABS: African American GFR (CKD) >90 (>60 ml/min/1.73 sqM); Non-African American GFR(CKD) >90 (>60 ml/min/1.73 sqM)
[2020-04-02] MEDS: VANCOMYCIN 1,750 MG in SODIUM CHLORIDE 0.9% 500 ML 500 ML IVPB SCH ×3 (08:49→22:47)
--- NOTE | 2020-04-02 10:44 | CT ---
EXAMINATION TYPE: CT chest wo con DATE OF EXAM: 04/02/2020 COMPARISON: Chest x-ray from yesterday and older x-rays. CT chest 4 days ago. HISTORY: Right lung pneumonia with effusion. CT DLP: 421.1 mGycm. Automated Exposure Control for Dose Reduction was Utilized. TECHNIQUE: CT scan of the thorax is performed without IV contrast. FINDINGS: LUNGS: There is persistent small right-sided pleural effusion which does not completely layer depende ntly as there is additional fluid along the posterior major fissure and more loculated fluid posterio rly in the right lung apex. There is air-fluid level in the right posterior lower pleural space likel y from recent thoracentesis. There is associated right basilar compressive atelectasis with more ante rior atelectasis and/or consolidation noted. Left lung remains clear. MEDIASTINUM: Lack of IV contrast is noted to limit evaluation for mediastinal and especially hilar a denopathy. There are new prominent thoracic lymph nodes. Reference right paratracheal lymph node jose luis ures 1.0 x 1.0 cm axial image 24 and adjacent AP window lymph node measures 1.3 x 0.8 cm same image, they are new from recent CT. No cardiomegaly or pericardial effusion is seen. OTHER: Slight underlying scoliotic curvature redemonstrated. Stable 3.7 cm in length irregular hypode nse lesion posterior segment right hepatic lobe axial image 55 favoring a hemangioma on recent CT. IMPRESSION: Small to borderline moderate size nonsimple right pleural fluid collection redemonstrated with 2 air-fluid levels noted in the posterior lower pleural space. There is associated right lower lung atelectasis and/or limited consolidation. Correlate clinically and with the diagnostic findings from recent right-sided thoracentesis.
--- NOTE | 2020-04-02 10:52 | P.PN ---
Subjective Progress Note Date: 04/02/20 Afebrile, no chest pain, no abdominal pain, no nausea or vomiting. Objective - Vital Signs Vital signs: Vital Signs Temp 98.8 F 04/02/20 08:40 Pulse 90 04/02/20 08:40 Resp 16 04/02/20 08:40 BP 133/74 04/02/20 08:40 Pulse Ox 93 L 04/02/20 08:40 Intake & Output 04/01/20 04/02/20 04/02/20 18:59 06:59 18:59 Intake Total 1000 760 Output Total 800 Balance 200 760 Weight 90.1 kg Intake: IV 160 0.9 160 Intake, IV Titration 600 600 Amount Ampicillin-Sulbactam 3 gm 100 100 In Sodium Chloride 0.9% 100 ml @ 200 mls/hr IVPB Q6H JORGE Rx#:[id number] Vancomycin 1,750 mg In 500 500 Sodium Chloride 0.9% 500 ml 500 ml @ 167 mls/hr IVPB Q8HR JORGE Rx#: [id number] Oral 400 Output: Urine 800 Other: Voiding Method Toilet Toilet # Voids 2 1 - Exam General: [non toxic], [appears at stated age] Derm: [warm], [dry] Head: [atraumatic], [normocephalic], [symmetric] Eyes: [EOMI] Mouth: [no lip lesion] Cardiovascular: [S1S2 reg], [no murmur], [positive posterior tibial pulse bilateral], Lungs: [Decreased breath sounds on the right], [rhonchi over the right base] , [no accessory muscle use] Abdominal: [soft], [ nontender to palpation], [no guarding] Ext: [no gross muscle atrophy], [no edema] Neuro: [no focal neuro deficits] Psych: [Alert], [oriented], [appropriate affect] - Labs CBC & Chem 7: 03/30/20 08:23 04/02/20 06:21 Labs: Microbiology - Last 24 Hours (Table) 04/01/20 13:45 Gram Stain - Preliminary Pleural Fluid Body Fluid Culture - Preliminary 03/30/20 00:59 Blood Culture - Preliminary Blood No Growth after 72 hours 04/01/20 13:45 Fungal Culture - Preliminary Pleural Fluid 04/01/20 13:45 Acid Fast Bacilli Culture - Preliminary Pleural Fluid 04/01/20 13:45 Anaerobic Culture - Preliminary Pleural Fluid 03/28/20 17:50 Blood Culture - Preliminary Blood No Growth after 96 hours Assessment and Plan Plan: Pneumonia with probable pulmonary abscess and sepsis -ID recs: [facility], follow recommendations, pending cultures. -CT surgery records no surgical intervention at this -Pulmonary recommendations appreciated - COVID testing negative in outpatient setting -Pulmonary hygiene -Status post paracenteses 04/01/2020 Anemia normocytic -Hemoglobin 10.6. -Continue to monitor. Pleuritic chest pain secondary to abscess -Pain control -Pain control with tramadol Liver hemangioma - outpatient follow-up Thrombocytosis, resolved Disposition: Home in 2-3 days pending clinical progression Treatment plan discussed with the patient and her at bedside]
--- NOTE | 2020-04-02 11:35 | P.PN ---
Subjective Progress Note Date: 04/02/20 Principal diagnosis: Right lower lobe community-acquired pneumonia This is a very pleasant 59-year-old female patient was a history of skin cancer. [place] [facility] [place] and was [place] well. After her return home she developed joint pain headache fever as high as 103. She had some right sided chest discomfort. She thought maybe she had coving was checked in the outpatient setting that was reported as negative. She presented here to the emergency room last evening with ongoing symptoms. Computed tomography scan revealed consolidation at the right posterior lung base with rounded fluid density suspicious for pneumonia with lung abscess and small right pleural effusion. She is seen today in consultation on the selective care unit. She is up in a chair at the bedside. Awake and alert in no acute distress. She did have a temperature earlier today of 101.1. She is maintaining O2 saturations in the mid 90s on room air. She's been hemodynamically stable. White count 14.2. Hemoglobin 11.4. Sodium 137. Potassium 4.1. Creatinine 0.60. She's been initiated on Unasyn and vancomycin. The patient is seen today 03/30/2020 in follow-up on the selective care unit. She is currently sitting up in a chair at the bedside. Awake and alert in no acute distress. She is maintaining good O2 saturations in the mid 90s on room air. She continues to spike fevers currently 100.1. She is slightly tachycardic. No tachypnea. Blood culture reveals no growth to date. White count 11.4. Hemoglobin 10.6. Sodium 136. Potassium 3.6. Creatinine 0.51. Pro-calcitonin 0.10. C-reactive protein 47.3. LDH 500. Chest x-ray shows worsening airspace disease occupying the right middle and lower lung. She remains on Unasyn and vancomycin. ID is on the case. On 03/31/2020 patient seen in follow-up on selective care unit. She is resting in the recliner, in no acute distress, still having some right lower chest and back discomfort, though somewhat improved. Breathing improved, room air pulse ox is 93%, hemodynamically stable, still having some low-grade fevers, with a T- max of 100.7F in the last 24 hours. Today's chest x-ray has been reviewed showing continued moderate right pleural effusion with adjacent atelectasis and consolidation extending up to the mid lung level, with minimally improved aeration. Right chest ultrasound showed loculated right-sided pleural effusion, with right pleural effusion pocket size of 4.7 cm. Patient on combination of Unasyn and vancomycin. Today's labs 7 reviewed, showing white blood cell count of 11.4, hemoglobin of 10.6, sodium of 136, resting electrolytes are within normal limits, BUN of 5 creatinine 0.51. Patient is receiving morphine for chest pain control. No hemoptysis. The patient is seen today 04/02/2020 in follow-up on the selective care unit. She is currently sitting up at the bedside. Awake and alert in no acute distress. She did undergo ultrasound guided thoracentesis however only 60 ML's of fluid was returned. Cytology is pending. Fluid is exudate with a protein of 3.2. LDH 1118. Glucose 35. She is continued on vancomycin and Unasyn. Follow-up computed tomography scan today reveals a small to moderate-sized non- simple right pleural fluid collection redemonstrated with 2 air-filled levels noted posterior lower pleural space. There is associated right lower lung atelectasis with limited consolidation. Objective - Vital Signs Vital signs: Vital Signs Temp 98.8 F 04/02/20 08:40 Pulse 90 04/02/20 08:40 Resp 16 04/02/20 08:40 BP 133/74 04/02/20 08:40 Pulse Ox 93 L 04/02/20 08:40 Intake & Output 04/01/20 04/02/20 04/02/20 18:59 06:59 18:59 Intake Total 1000 760 Output Total 800 Balance 200 760 Weight 90.1 kg Intake: IV 160 0.9 160 Intake, IV Titration 600 600 Amount Ampicillin-Sulbactam 3 gm 100 100 In Sodium Chloride 0.9% 100 ml @ 200 mls/hr IVPB Q6H JORGE Rx#:[id number] Vancomycin 1,750 mg In 500 500 Sodium Chloride 0.9% 500 ml 500 ml @ 167 mls/hr IVPB Q8HR JORGE Rx#: [id number] Oral 400 Output: Urine 800 Other: Voiding Method Toilet Toilet # Voids 2 1 - Exam GENERAL EXAM: Alert, active, very pleasant 59-year-old female patient, 2 L nasal cannula, O2 saturation 93%, comfortable in no apparent distress. HEAD: Normocephalic. EYES: Normal reaction of pupils, equal size. NOSE: Clear with pink turbinates. THROAT: No erythema or exudates. NECK: No masses, no JVD. CHEST: No chest wall deformity. LUNGS: Equal air entry with crackles, diminished in the right base. CVS: S1 and S2 normal with no audible murmur, regular rhythm. ABDOMEN: No hepatosplenomegaly, normal bowel sounds, no guarding or rigidity. SPINE: No scoliosis or deformity SKIN: No rashes CENTRAL NERVOUS SYSTEM: No focal deficits, tone is normal in all 4 extremities. EXTREMITIES: There is no peripheral edema. No clubbing, no cyanosis. Perip heral pulses are intact. - Labs CBC & Chem 7: 03/30/20 08:23 04/02/20 06:21 Labs: Microbiology - Last 24 Hours (Table) 04/01/20 13:45 Gram Stain - Preliminary Pleural Fluid Body Fluid Culture - Preliminary 03/30/20 00:59 Blood Culture - Preliminary Blood No Growth after 72 hours 04/01/20 13:45 Fungal Culture - Preliminary Pleural Fluid 04/01/20 13:45 Acid Fast Bacilli Culture - Preliminary Pleural Fluid 04/01/20 13:45 Anaerobic Culture - Preliminary Pleural Fluid 03/28/20 17:50 Blood Culture - Preliminary Blood No Growth after 96 hours Assessment and Plan Assessment: Febrile illness secondary to right lower lobe consolidation, suspect community- acquired pneumonia with possible abscess versus aspiration. Initial CoVID screen in the outpatient setting reported as negative. Follow-up Covid screen from ER 03/28/2020 is negative, urine legionella antigen negative. Follow-up CAT scan revealed small to moderate-sized non-simple right pleural fluid collection redemonstrated with 2 air fluid levels noted in the posterior lower pleural s pace. There is associated right lower lobe atelectasis and/or limited consolidation. She has remained on vancomycin and Unasyn. She did undergo a thoracentesis yesterday with only approximate 60 ML's of exudative fluid returned. Cultures pending. Joint pain, fatigue, weakness secondary to above History of skin cancer Lifelong nonsmoker Plan: The patient was seen and evaluated by Dr. Thao Computed tomography scan of the chest reviewed Air-fluid levels noted, loculated fluid Requesting CT services to review Remains on Unasyn and vancomycin per ID services Legionella antigen negative Initial CoVID screen in the outpatient setting reported as negative Follow-up CoVID testing from ER negative Pleural fluid exudate from yesterday's thoracentesis, 60 ML's removed. Cultures pending. We will continue to follow and make further recommendations based on her clinical status I, the cosigning physician, performed a history & physical examination of the patient. Lungs sounds with few crackles, diminished in the right lung base. Maintaining good O2 saturations in the 90s on 2 L/m per nasal cannula. I discussed the assessment and plan of care with my nurse practitioner, Yelena Benavidez. I attest to the above note as dictated by her.
--- NOTE | 2020-04-02 17:24 | PN ---
PROGRESS NOTE DATE OF SERVICE: 04/02/2020 REASON FOR FOLLOWUP: Right lower lobe pneumonia and parapneumonic effusion. INTERVAL HISTORY: The patient is currently afebrile. The patient is breathing slightly comfortably. She continues to have a cough, less productive. Still has some pain on the right lower chest, especially when taking deep breaths or cough. No nausea, no vomiting. No abdominal pain or any worsening diarrhea. PHYSICAL EXAMINATION: Blood pressure 132/67, pulse 84, temperature 98.8. She is 94% on room air. General description is a middle-aged female up in the bed in no distress. RESPIRATORY SYSTEM: Unlabored breathing with decreased breath sounds at the base. No wheeze. HEART: S1, S2. Regular rate and rhythm. ABDOMEN: Soft. No tenderness. LABS: Creatinine 0.59. Culture so far pending. DIAGNOSTIC IMPRESSION AND PLAN: Patient with right-sided pneumonia with parapneumonic effusion. Repeat CT did not show any loculated fluid. Will wait for the culture to finalize to determine her discharge antibiotic. May benefit from a short course of IV Rocephin on discharge. Continue Unasyn and vancomycin at this point. Family at the bedside. Their questions were answered. MMODL / IJN: [id number] /
[2020-04-02] MEDS: ONDANSETRON 4 MG/2 ML VIAL IVP PRN (21:39)
[2020-04-03] MEDS: AMPICILLIN-SULBACTAM 3 GM in SODIUM CHLORIDE 0.9% 100 ML IVPB SCH ×3 (03:33→20:51)
[2020-04-03] MEDS: ACETAMINOPHEN TAB 500 MG TAB PO PRN ×4 (03:33→21:55)
[2020-04-03 06:57] LABS: Basophils % (A) 0 %; Eosinophils # (A) 0.1 k/uL (0-0.7); Eosinophils % (A) 1 %; HGB 10.4 gm/dL (11.4-16.0); Lymphocytes # (A) 2.2 k/uL (1.0-4.8); Lymphocytes % (A) 22 %; MCH 28.8 pg (25.0-35.0); MCHC 31.6 g/dL (31.0-37.0); MCV 91.1 fL (80.0-100.0); Mean Platelet Volume 6.6; Monocytes # (A) 0.8 k/uL (0-1.0); Monocytes % (A) 8 %; Neutrophils # (A) 6.6 k/uL (1.3-7.7); Neutrophils % (A) 66 %; Platelet Count 520 k/uL (150-450); RBC 3.63 m/uL (3.80-5.40)
[2020-04-03 07:18] LABS: ALT 10 U/L (4-34); AST 13 U/L (14-36); African American GFR (CKD) >90 (>60 ml/min/1.73 sqM); Albumin 3.1 g/dL (3.5-5.0); Alkaline Phosphatase 80 U/L (38-126); Anion Gap 8 mmol/L; Blood Urea Nitrogen 5 mg/dL (7-17); Calcium 8.6 mg/dL (8.4-10.2); Carbon Dioxide 27 mmol/L (22-30); Chloride 102 mmol/L (98-107); Glucose 103 mg/dL (74-99); Non-African American GFR(CKD) >90 (>60 ml/min/1.73 sqM); Potassium 3.9 mmol/L (3.5-5.1); Sodium 137 mmol/L (137-145); Total Bilirubin 0.4 mg/dL (0.2-1.3); Total Protein 5.9 g/dL (6.3-8.2)
[2020-04-03] MEDS: VANCOMYCIN 1,750 MG in SODIUM CHLORIDE 0.9% 500 ML 500 ML IVPB SCH ×2 (09:43→16:03)
--- NOTE | 2020-04-03 11:16 | P.PN ---
Subjective Progress Note Date: 04/03/20 Principal diagnosis: Pulmonary abcess with a previous medical history of basal cell carcinoma, status post resection to her face, difficulty swallowing, sleep apnea, depression, an xiety and daily marijuana use. POD #2 thoracentesis performed by interventional radiology with subsequent loculated fluid Patient seen and examined this morning with Dr. Pak. She was up in the chair in no acute distress. She denies pain and states her shortness of breath is improving, currently requiring no oxygen. Objective - Vital Signs Vital signs: Vital Signs Temp 100.1 F H 04/03/20 04:00 Pulse 92 04/03/20 04:00 Resp 18 04/03/20 04:00 BP 125/66 04/03/20 04:00 Pulse Ox 93 L 04/03/20 04:00 Intake & Output 04/02/20 04/03/20 04/03/20 18:59 06:59 18:59 Intake Total 1000 860 Balance 1000 860 Weight 89.1 kg Intake: IV 160 160 0.9 160 160 Intake, IV Titration 600 700 Amount Ampicillin-Sulbactam 3 gm 100 200 In Sodium Chloride 0.9% 100 ml @ 200 mls/hr IVPB Q6H [facility] Rx#:[id number] Vancomycin 1,750 mg In 500 500 Sodium Chloride 0.9% 500 ml 500 ml @ 167 mls/hr IVPB Q8HR [facility] Rx#: [id number] Oral 240 Other: Voiding Method Toilet Toilet # Voids 1 1 - Constitutional General appearance: Present: cooperative, no acute distress - Respiratory Details: Lungs sounds essentially clear to her bilateral upper lobes, diminished to her right lower lobe. Respirations are symmetrical and nonlabored. Oxygen saturation are 93% on room air - Cardiovascular Details: Regular rhythm and rate. S1 and S2 present. Telemetry showing normal sinus rhythm. No edema present. - Gastrointestinal Gastrointestinal Comment(s): Abdomen is soft, nontender and nondistended. Active bowel sounds present in all 4 abdominal quadrants. No guarding or rigidity. - Genitourinary Genitourinary Comment(s): Continues to void. - Integumentary Integumentary Comment(s): Skin is warm and dry with evidence of good perfusion - Neurologic Neurologic: Present: CNII-XII intact - Musculoskeletal Musculoskeletal: Present: gait normal, strength equal bilaterally - Psychiatric Psychiatric: Present: A&O x's 3, appropriate affect, intact judgment & insight - Allied health notes Allied health notes reviewed: nursing - Labs CBC & Chem 7: 04/03/20 06:23 04/03/20 06:23 Labs: Abnormal Lab Results - Last 24 Hours (Table) 04/03/20 04/03/20 Range/Units 06:23 06:23 RBC 3.63 L (3.80-5.40) m/uL Hgb 10.4 L (11.4-16.0) gm/dL Hct 33.0 L (34.0-46.0) % Plt Count 520 H (150-450) k/uL BUN 5 L (7-17) mg/dL Glucose 103 H (74-99) mg/dL AST 13 L (14-36) U/L Total Protein 5.9 L (6.3-8.2) g/dL Albumin 3.1 L (3.5-5.0) g/dL Microbiology - Last 24 Hours (Table) 03/30/20 00:59 Blood Culture - Preliminary Blood No Growth after 96 hours 03/28/20 17:50 Blood Culture - Preliminary Blood No Growth after 120 hours 04/01/20 13:45 Acid Fast Bacilli Smear - Final Pleural Fluid Acid Fast Bacilli Culture - Preliminary 04/01/20 13:45 Gram Stain - Preliminary Pleural Fluid Body Fluid Culture - Preliminary - Imaging and Cardiology CT scan - chest: report reviewed, image reviewed Assessment and Plan Assessment: 1. Fever, secondary to right lower lobe consolidation, suspect community- acquired pneumonia with possible abscess versus aspiration, status post thoracentesis with subsequent loculated fluid 2. Weakness with, joint pain and body aches 3. History of basal cell carcinoma removed from her face in August 2018 4. Daily marijuana use 5. History of aspiration, difficulty swallowing Plan: 1. We will take patient to the operating room tomorrow for right sided video- assisted thoracoscopic surgery with drainage of fluid and decortication. Patient to be nothing by mouth after midnight. 2. Continue antibiotics per infectious disease. 3. Encourage incentive spirometer use 10x hour while awake. 4. Encourage frequent ambulation, up to chair. 5. Management of other comoribidites per primary care. 6. We will continue to follow the patient with more recommendations to follow based on patient's clinical course. Time with Patient: Greater than 30
--- NOTE | 2020-04-03 11:35 | P.PN ---
Subjective Progress Note Date: 04/03/20 Principal diagnosis: Right lower lobe community-acquired pneumonia This is a very pleasant 59-year-old female patient was a history of skin cancer. [place] [facility] [place] and was doing quite well. After her return home she developed joint pain headache fever as high as 103. She had some right sided chest discomfort. She thought maybe she had coving was checked in the outpatient setting that was reported as negative. She presented here to the emergency room last evening with ongoing symptoms. Computed tomography scan revealed consolidation at the right posterior lung base with rounded fluid density suspicious for pneumonia with lung abscess and small right pleural effusion. She is seen today in consultation on the selective care unit. She is up in a chair at the bedside. Awake and alert in no acute distress. She did have a temperature earlier today of 101.1. She is maintaining O2 saturations in the mid 90s on room air. She's been hemodynamically stable. White count 14.2. Hemoglobin 11.4. Sodium 137. Potassium 4.1. Creatinine 0.60. She's been initiated on Unasyn and vancomycin. The patient is seen today 03/30/2020 in follow-up on the selective care unit. She is currently sitting up in a chair at the bedside. Awake and alert in no acute distress. She is maintaining good O2 saturations in the mid 90s on room air. She continues to spike fevers currently 100.1. She is slightly tachycardic. No tachypnea. Blood culture reveals no growth to date. White count 11.4. Hemoglobin 10.6. Sodium 136. Potassium 3.6. Creatinine 0.51. Pro-calcitonin 0.10. C-reactive protein 47.3. LDH 500. Chest x-ray shows worsening airspace disease occupying the right middle and lower lung. She remains on Unasyn and vancomycin. ID is on the case. On 03/31/2020 patient seen in follow-up on selective care unit. She is resting in the recliner, in no acute distress, still having some right lower chest and back discomfort, though somewhat improved. Breathing improved, room air pulse ox is 93%, hemodynamically stable, still having some low-grade fevers, with a T- max of 100.7F in the last 24 hours. Today's chest x-ray has been reviewed showing continued moderate right pleural effusion with adjacent atelectasis and consolidation extending up to the mid lung level, with minimally improved aeration. Right chest ultrasound showed loculated right-sided pleural effusion, with right pleural effusion pocket size of 4.7 cm. Patient on combination of Unasyn and vancomycin. Today's labs 7 reviewed, showing white blood cell count of 11.4, hemoglobin of 10.6, sodium of 136, resting electrolytes are within normal limits, BUN of 5 creatinine 0.51. Patient is receiving morphine for chest pain control. No hemoptysis On 04/03/2020 patient seen in follow-up on selective care unit, she sits up in the recliner, she states her breathing is about the same, does not appear to be in any respiratory distress, but she states that right-sided chest discomfort and back discomfort have completely resolved, and overall she is feeling much better. Patient is status post right-sided ultrasound-guided thoracentesis with removal of 60 mL of pleural fluid which came back exudative, and pleural fluid cultures showed polymicrobial growth, Gram stain showed many gram-negative bacilli, many gram-positive cocci, few gram negative cocci and rare budding yeast, final culture is pending. Patient remains on combination of Unasyn and vancomycin. She still having temperature elevation, with a T-max of 100.8F in the last 24 hours. Pleural fluid cytology is pending. CT chest from yesterday showed small to borderline moderate size non-simple right pleural fluid collection with 2 air fluid levels noted in posterior lower pleural space, there is associated right lower lung atelectasis. Objective - Vital Signs Vital signs: Vital Signs Temp 99.0 F 04/03/20 08:00 Pulse 90 04/03/20 08:00 Resp 17 04/03/20 08:00 BP 124/61 04/03/20 08:00 Pulse Ox 98 04/03/20 08:00 Intake & Output 04/02/20 04/03/20 04/03/20 18:59 06:59 18:59 Intake Total 1000 860 Balance 1000 860 Weight 89.1 kg Intake: IV 160 160 0.9 160 160 Intake, IV Titration 600 700 Amount Ampicillin-Sulbactam 3 gm 100 200 In Sodium Chloride 0.9% 100 ml @ 200 mls/hr IVPB Q6H [facility] Rx#:[id number] Vancomycin 1,750 mg In 500 500 Sodium Chloride 0.9% 500 ml 500 ml @ 167 mls/hr IVPB Q8HR [facility] Rx#: [id number] Oral 240 Other: Voiding Method Toilet Toilet # Voids 1 1 - Exam GENERAL EXAM: Alert, very pleasant, 59-year-old white female on room air, with a pulse ox of 98% comfortable in no apparent distress. HEAD: Normocephalic/atraumatic. EYES: Normal reaction of pupils, equal size. Conjunctiva pink, sclera white. NOSE: Clear with pink turbinates. THROAT: No erythema or exudates. NECK: No masses, no JVD, no thyroid enlargement, no adenopathy. CHEST: No chest wall deformity. Symmetrical expansion. LUNGS: Equal air entry with diminished breath sounds over right lower base, with crackles at bilateral bases, wheeze, rhonchi or dullness. CVS: Regular rate and rhythm, normal S1 and S2, no gallops, no murmurs, no rubs ABDOMEN: Soft, nontender. No hepatosplenomegaly, normal bowel sounds, no guarding or rigidity. EXTREMITIES: No clubbing, no edema, no cyanosis, 2+ pulses and upper and lower extremities. MUSCULOSKELETAL: Muscle strength and tone normal. SPINE: No scoliosis or deformity SKIN: No rashes CENTRAL NERVOUS SYSTEM: Alert and oriented -3. No focal deficits, tone is normal in all 4 extremities. PSYCHIATRIC: Alert and oriented -3. Appropriate affect. Intact judgment and insight. - Labs CBC & Chem 7: 04/03/20 06:23 04/03/20 06:23 Labs: Abnormal Lab Results - Last 24 Hours (Table) 04/03/20 04/03/20 Range/Units 06:23 06:23 RBC 3.63 L (3.80-5.40) m/uL Hgb 10.4 L (11.4-16.0) gm/dL Hct 33.0 L (34.0-46.0) % Plt Count 520 H (150-450) k/uL BUN 5 L (7-17) mg/dL Glucose 103 H (74-99) mg/dL AST 13 L (14-36) U/L Total Protein 5.9 L (6.3-8.2) g/dL Albumin 3.1 L (3.5-5.0) g/dL Microbiology - Last 24 Hours (Table) 03/30/20 00:59 Blood Culture - Preliminary Blood No Growth after 96 hours 03/28/20 17:50 Blood Culture - Preliminary Blood No Growth after 120 hours 04/01/20 13:45 Acid Fast Bacilli Smear - Final Pleural Fluid Acid Fast Bacilli Culture - Preliminary 04/01/20 13:45 Gram Stain - Preliminary Pleural Fluid Body Fluid Culture - Preliminary Assessment and Plan Plan: #1. Febrile illness secondary to right lower lobe consolidation, suspect community-acquired pneumonia with possible abscess versus aspiration. Initial CoVID screen in the outpatient setting reported as negative. Follow-up Covid screen from ER 03/28/2020 not detected #2. Right-sided parapneumonic effusion, loculated, status post ultrasound- guided thoracentesis on 04/01/2020, with exudative fluid, pleural fluid cultures are pending, this was done for diagnostic purposes, 60 mL of fluid was removed by interventional radiology. Cytology is pending. Follow-up CT chest revealed non-simple, small to moderate loculated pleural effusions, and patient will need surgical intervention with VATS/decortication #3. Joint pain, fatigue, weakness secondary to above #4. History of skin cancer #5. Lifelong nonsmoker Plan: Continue current antibiotics, clinically patient states she is feeling better, right-sided chest pain has completely resolved, she still having fever intermittently, awaiting results of the pleural fluid cultures, follow-up CT chest yesterday showed loculated non-simple right-sided pleural fluid cecil ections. Discussed case with CT surgery on the case, was planned and on surgical intervention, with VATS and decortication possibly tomorrow I performed a history & physical examination of the patient and discussed their management with my nurse practitioner, Rebeca Bolod. I reviewed the nurse princess alva's note and agree with the documented findings and plan of care. Lung sounds are positive for diminished breath sounds. The findings and the impression was discussed with the patient. I attest to the documentation by the nurse practitioner. Time with Patient: Less than 30
[2020-04-03 15:00] VITALS: BMI 34.7
--- NOTE | 2020-04-03 16:00 | P.PN ---
Subjective Progress Note Date: 04/03/20 Patient was seen and examined. No acute events overnight. Patient reports improved pleuritic chest pain over the past few days. Spastic pain improved after starting Valium. She denies any cough. She denies any chest pain or palpitations. No nausea or vomiting. No fever or chills. Plans for decortica tion and VATS by CT surgery tomorrow. Objective - Vital Signs Vital signs: Vital Signs Temp 99.0 F 04/03/20 08:00 Pulse 83 04/03/20 12:00 Resp 20 04/03/20 12:00 BP 119/61 04/03/20 12:00 Pulse Ox 98 04/03/20 08:00 Intake & Output 04/02/20 04/03/20 04/03/20 18:59 06:59 18:59 Intake Total 1000 860 Balance 1000 860 Weight 89.1 kg 89.1 kg Intake: IV 160 160 0.9 160 160 Intake, IV Titration 600 700 Amount Ampicillin-Sulbactam 3 gm 100 200 In Sodium Chloride 0.9% 100 ml @ 200 mls/hr IVPB Q6H [facility] Rx#:[id number] Vancomycin 1,750 mg In 500 500 Sodium Chloride 0.9% 500 ml 500 ml @ 167 mls/hr IVPB Q8HR [facility] Rx#: [id number] Oral 240 Other: Voiding Method Toilet Toilet Toilet # Voids 1 1 3 - Exam General: [non toxic], [mild distress], [appears at stated age] Derm: [warm], [dry] Head: [atraumatic], [normocephalic], [symmetric] Eyes: [EOMI], [no lid lag], [anicteric sclera] Mouth: [no lip lesion], [mucus membranes moist] Cardiovascular: [S1S2 reg], [no murmur], [positive posterior tibial pulse bilateral], Lungs: [Decreased breath sounds on the right with improved aeration than admission], [rhonchi over the right base] , [no accessory muscle use] Abdominal: [soft], [ nontender to palpation], [no guarding], [no appreciable organomegaly] Ext: [no gross muscle atrophy], [no edema], [no contractures] Neuro: [no focal neuro deficits] Psych: [Alert], [oriented], [appropriate affect] - Labs CBC & Chem 7: 04/03/20 06:23 04/03/20 06:23 Labs: Abnormal Lab Results - Last 24 Hours (Table) 04/03/20 04/03/20 Range/Units 06:23 06:23 RBC 3.63 L (3.80-5.40) m/uL Hgb 10.4 L (11.4-16.0) gm/dL Hct 33.0 L (34.0-46.0) % Plt Count 520 H (150-450) k/uL BUN 5 L (7-17) mg/dL Glucose 103 H (74-99) mg/dL AST 13 L (14-36) U/L Total Protein 5.9 L (6.3-8.2) g/dL Albumin 3.1 L (3.5-5.0) g/dL Microbiology - Last 24 Hours (Table) 03/31/20 10:45 Gram Stain - Final Sputum Sputum Culture - Final 03/30/20 00:59 Blood Culture - Preliminary Blood No Growth after 96 hours 03/28/20 17:50 Blood Culture - Preliminary Blood No Growth after 120 hours 04/01/20 13:45 Acid Fast Bacilli Smear - Final Pleural Fluid Acid Fast Bacilli Culture - Preliminary 04/01/20 13:45 Gram Stain - Preliminary Pleural Fluid Body Fluid Culture - Preliminary Assessment and Plan Assessment: Pneumonia with probable pulmonary abscess and sepsis -DC IVF and encourage hydration by mouth -ID recs: Vanco and Unasyn -CT surgery recommends VATS and decortication procedure tomorrow -COVID testing negative in outpatient setting -Pulmonary hygiene -s/p thoracentesis -Exudative -Culture Negative so far -Sputum culture shows rare PMN leukocytes, many gram-negative bacilli, many gram-positive cocci, few gram-negative cocci, rare budding yeast -Follow chest x-ray until clear Anemia normocytic -Hemoglobin 10.4. -Likely dilutional. -Continue to monitor. -Repeat CBC tomorrow morning Pleuritic chest pain secondary to abscess -Pain control -Trial of tramadol -Add Valium as a muscle relaxer Liver hemangioma - outpatient follow-up Thrombocytosis, resolved [Patient admitted for pneumonia with probable abscess. On IV antibiotics. Infectious disease and pulmonology on board. Cultures negative so far. Plans for VATS and decortication by CT surgery tomorrow.]
[2020-04-03] MEDS: ONDANSETRON 4 MG/2 ML VIAL IVP PRN (16:07)
--- NOTE | 2020-04-04 01:42 | PN ---
PROGRESS NOTE DATE OF SERVICE: 04/03/2020 REASON FOR FOLLOWUP: Pneumonia, abscess and parapneumonic effusion. INTERVAL HISTORY: The patient did spike another fever this evening of 102.6 degrees Fahrenheit, not notified of the new fever. The patient is breathing comfortably though. No chest pain. Cough decreased in intensity. No nausea, no vomiting. No abdominal pain, no diarrhea. PHYSICAL EXAMINATION: Her blood pressure 133/69 with the pulse of 94, temperature 102.3. She is 93% on room air. General description is a middle-aged female up in the bed in no distress. RESPIRATORY SYSTEM: Unlabored breathing, decreased breath sounds at the right base. No wheeze. HEART: S1, S2. Regular rate and rhythm. ABDOMEN: Soft, no tenderness. LABS: Hemoglobin is 10.4, white count 10 with a BUN of 5, creatinine 0.57. The pleural fluid culture so far negative. Sputum is negative. Blood culture negative. DIAGNOSTIC IMPRESSION AND PLAN: Patient with right lower lobe pneumonia with concern for abscess, now with abnormal CT concerning for possible loculated fluid for VATS procedure tomorrow and deep cultures as culture has been negative for any resistant gram-positive and MRSA. We will discontinue the vancomycin to decrease risk of nephrotoxicity. Continue with Unasyn. Antibiotic will be adjusted further on the basis of the repeat cultures. Continue with supportive care. MMODL / IJN: [id number] /
[2020-04-04] MEDS: AMPICILLIN-SULBACTAM 3 GM in SODIUM CHLORIDE 0.9% 100 ML IVPB SCH ×4 (02:42→19:42)
[2020-04-04] MEDS: ACETAMINOPHEN TAB 500 MG TAB PO PRN ×2 (02:45→08:34)
[2020-04-04 08:09] LABS: Basophils % (A) 0 %; Eosinophils # (A) 0.1 k/uL (0-0.7); Eosinophils % (A) 1 %; HGB 11.1 gm/dL (11.4-16.0); Lymphocytes % (A) 18 %; MCH 29.4 pg (25.0-35.0); MCHC 31.7 g/dL (31.0-37.0); MCV 92.5 fL (80.0-100.0); Mean Platelet Volume 6.5; Monocytes # (A) 0.9 k/uL (0-1.0); Monocytes % (A) 8 %; Neutrophils # (A) 8.1 k/uL (1.3-7.7); Neutrophils % (A) 71 %; Platelet Count 530 k/uL (150-450); RBC 3.78 m/uL (3.80-5.40); RDW 11.9 % (11.5-15.5); WBC 11.3 k/uL (3.8-10.6)
[2020-04-04 08:23] LABS: ALT 11 U/L (4-34); AST 14 U/L (14-36); African American GFR (CKD) >90 (>60 ml/min/1.73 sqM); Albumin 3.2 g/dL (3.5-5.0); Alkaline Phosphatase 83 U/L (38-126); Anion Gap 8 mmol/L; Blood Urea Nitrogen 8 mg/dL (7-17); Calcium 8.6 mg/dL (8.4-10.2); Carbon Dioxide 28 mmol/L (22-30); Chloride 102 mmol/L (98-107); Glucose 106 mg/dL (74-99); Non-African American GFR(CKD) >90 (>60 ml/min/1.73 sqM); Potassium 4.1 mmol/L (3.5-5.1); Sodium 138 mmol/L (137-145); Total Bilirubin 0.5 mg/dL (0.2-1.3); Total Protein 6.2 g/dL (6.3-8.2)
[2020-04-04] MEDS: ONDANSETRON 4 MG/2 ML VIAL IVP PRN (08:38)
--- NOTE | 2020-04-04 11:11 | P.PN ---
Subjective Progress Note Date: 04/04/20 Principal diagnosis: Right lower lobe community-acquired pneumonia This is a very pleasant 59-year-old female patient was a history of skin cancer. [place] [facility] [place] and was doing quite well. After her return home she developed joint pain headache fever as high as 103. She had some right sided chest discomfort. She thought maybe she had coving was checked in the outpatient setting that was reported as negative. She presented here to the emergency room last evening with ongoing symptoms. Computed tomography scan revealed consolidation at the right posterior lung base with rounded fluid density suspicious for pneumonia with lung abscess and small right pleural effusion. She is seen today in consultation on the selective care unit. She is up in a chair at the bedside. Awake and alert in no acute distress. She did have a temperature earlier today of 101.1. She is maintaining O2 saturations in the mid 90s on room air. She's been hemodynamically stable. White count 14.2. Hemoglobin 11.4. Sodium 137. Potassium 4.1. Creatinine 0.60. She's been initiated on Unasyn and vancomycin. The patient is seen today 03/30/2020 in follow-up on the selective care unit. She is currently sitting up in a chair at the bedside. Awake and alert in no acute distress. She is maintaining good O2 saturations in the mid 90s on room air. She continues to spike fevers currently 100.1. She is slightly tachycardic. No tachypnea. Blood culture reveals no growth to date. White count 11.4. Hemoglobin 10.6. Sodium 136. Potassium 3.6. Creatinine 0.51. Pro-calcitonin 0.10. C-reactive protein 47.3. LDH 500. Chest x-ray shows worsening airspace disease occupying the right middle and lower lung. She remains on Unasyn and vancomycin. ID is on the case. On 03/31/2020 patient seen in follow-up on selective care unit. She is resting in the recliner, in no acute distress, still having some right lower chest and back discomfort, though somewhat improved. Breathing improved, room air pulse ox is 93%, hemodynamically stable, still having some low-grade fevers, with a T- max of 100.7F in the last 24 hours. Today's chest x-ray has been reviewed showing continued moderate right pleural effusion with adjacent atelectasis and consolidation extending up to the mid lung level, with minimally improved aeration. Right chest ultrasound showed loculated right-sided pleural effusion, with right pleural effusion pocket size of 4.7 cm. Patient on combination of Unasyn and vancomycin. Today's labs 7 reviewed, showing white blood cell count of 11.4, hemoglobin of 10.6, sodium of 136, resting electrolytes are within normal limits, BUN of 5 creatinine 0.51. Patient is receiving morphine for chest pain control. No hemoptysis. The patient is seen today 04/02/2020 in follow-up on the selective care unit. She is currently sitting up at the bedside. Awake and alert in no acute distress. She did undergo ultrasound guided thoracentesis however only 60 ML's of fluid was returned. Cytology is pending. Fluid is exudate with a protein of 3.2. LDH 1118. Glucose 35. She is continued on vancomycin and Unasyn. Follow-up computed tomography scan today reveals a small to moderate-sized non- simple right pleural fluid collection redemonstrated with 2 air-filled levels noted posterior lower pleural space. There is associated right lower lung atelectasis with limited consolidation. The patient is seen today 04/04/2020 in follow-up on the selective care unit. She is currently sitting up in a chair at the bedside. Awake and alert in no acute distress. She continues to spike temperatures he was 101.1 this a.m. She is maintaining good O2 saturations in the 90s on room air. Pleural fluid cultures pending. Blood cultures reveal no growth. Sputum culture revealed no growth. Pleural fluid cytology revealed pyohorax characterized by reactive mesothelial cells and abundant acute inflammatory cells. No neoplastic cells identified. The plan is for a right-sided video-assisted thoracoscopic surgery with drainage of fluid and decortication today. Objective - Vital Signs Vital signs: Vital Signs Temp 101.1 F H 04/04/20 08:00 Pulse 86 04/04/20 08:00 Resp 18 04/04/20 08:00 BP 115/61 04/04/20 08:00 Pulse Ox 93 L 04/04/20 08:00 Intake & Output 04/03/20 04/04/20 04/04/20 18:59 06:59 18:59 Intake Total 360 Balance 360 Weight 89.1 kg 88.7 kg Intake: IV 160 0.9 160 Intake, IV Titration 200 Amount Ampicillin-Sulbactam 3 gm 200 In Sodium Chloride 0.9% 100 ml @ 200 mls/hr IVPB Q6H [facility] [place] Rx#:[id number] Other: Voiding Method Toilet Toilet # Voids 3 2 - Exam GENERAL EXAM: Alert, active, very pleasant 59-year-old female patient, room air, O2 saturation 93%, comfortable in no apparent distress. HEAD: Normocephalic. EYES: Normal reaction of pupils, equal size. NOSE: Clear with pink turbinates. THROAT: No erythema or exudates. NECK: No masses, no JVD. CHEST: No chest wall deformity. LUNGS: Equal air entry with crackles, diminished in the right base. CVS: S1 and S2 normal with no audible murmur, regular rhythm. ABDOMEN: No hepatosplenomegaly, normal bowel sounds, no guarding or rigidity. SPINE: No scoliosis or deformity SKIN: No rashes CENTRAL NERVOUS SYSTEM: No focal deficits, tone is normal in all 4 extremities. EXTREMITIES: There is no peripheral edema. No clubbing, no cyanosis. Peripheral pulses are intact. - Labs CBC & Chem 7: 04/04/20 07:40 04/04/20 07:40 Labs: Abnormal Lab Results - Last 24 Hours (Table) 04/03/20 04/04/20 04/04/20 Range/Units 06:49 07:40 07:40 WBC 11.3 H (3.8-10.6) k/uL RBC 3.78 L (3.80-5.40) m/uL Hgb 11.1 L (11.4-16.0) gm/dL Plt Count 530 H (150-450) k/uL Neutrophils # 8.1 H (1.3-7.7) k/uL Glucose 106 H (74-99) mg/dL C-Reactive Protein 196.9 H (<10.0) mg/L Total Protein 6.2 L (6.3-8.2) g/dL Albumin 3.2 L (3.5-5.0) g/dL Microbiology - Last 24 Hours (Table) 03/30/20 00:59 Blood Culture - Preliminary Blood No Growth after 120 hours 04/01/20 13:45 Anaerobic Culture - Preliminary Pleural Fluid 03/28/20 17:50 Blood Culture - Final Blood No Growth after 144 hours 04/01/20 13:45 Gram Stain - Preliminary Pleural Fluid Body Fluid Culture - Preliminary 03/31/20 10:45 Gram Stain - Final Sputum Sputum Culture - Final Assessment and Plan Assessment: Febrile illness secondary to right lower lobe consolidation, suspect community- acquired pneumonia with possible abscess versus aspiration. Initial CoVID screen in the outpatient setting reported as negative. Follow-up Covid screen from ER 03/28/2020 is negative, urine legionella antigen negative. Follow-up CAT scan revealed small to moderate-sized non-simple right pleural fluid collection re demonstrated with 2 air fluid levels noted in the posterior lower pleural space. There is associated right lower lobe atelectasis and/or limited consolidation. She remains on Unasyn. Thoracentesis cytology positive for pyothorax characterized by reactive mesothelial cells and abundant acute inflammatory cells. Plan is for right-sided VATS procedure with decortication today. Joint pain, fatigue, weakness secondary to above History of skin cancer Lifelong nonsmoker Plan: The patient was seen and evaluated by Dr. Thao Fluid cytology reviewed She remains on Unasyn Plan is for VATS procedure of the right chest with decortication today. We will continue to follow and make further recommendations based on her clinical status I, the cosigning physician, performed a history & physical examination of the patient. Lungs sounds with few crackles, diminished in the right lung base. Ma intaining good O2 saturations in the 90s on room air. I discussed the assessment and plan of care with my nurse practitioner, Yelena Benavidez. I attest to the above note as dictated by her.
[2020-04-04] MEDS ORDERED: ONDANSETRON 4 MG/2 ML VIAL IVP ONE (13:41)
[2020-04-04] MEDS ORDERED: MIDAZOLAM 2 MG/2 ML VIAL IVP ONE (13:41)
[2020-04-04] MEDS ORDERED: fentaNYL (PF) 50 MCG/ML 2 ML AMP IVP ONE (13:41)
[2020-04-04] MEDS ORDERED: ePHEDrine SULFATE/0.9% NACL/PF 50 MG/5 ML SYRINGE IV ONE (15:05)
[2020-04-04] MEDS ORDERED: GLYCOPYRROLATE 0.2 MG/ML 2 ML VIAL ONE (15:05)
[2020-04-04] MEDS ORDERED: HYDROmorphone (PF) 1 MG/ML ONE (15:05)
[2020-04-04] MEDS ORDERED: PHENYLEPHRINE-0.9% NACL SYG 1 MG/10 ML SYRINGE ONE (15:05)
[2020-04-04] MEDS ORDERED: PROPOFOL 10 MG/ML 20 ML VIAL IV ONE (15:05)
[2020-04-04] MEDS ORDERED: SUCCINYLCHOLINE CHLORIDE 100 MG/5 ML SYR IV ONE (15:05)
[2020-04-04] MEDS ORDERED: ROCURONIUM 10 MG/ML (5 ML VIAL) IV ONE (15:05)
[2020-04-04] MEDS ORDERED: NEOSTIGMINE 1 MG/ML 10 ML VIAL ONE (15:05)
[2020-04-04] MEDS ORDERED: MIDAZOLAM 2 MG/2 ML VIAL ONE (15:05)
[2020-04-04] MEDS ORDERED: LIDOCAINE 1% INJ 10MG/ML (20 ML MDV) ONE (15:05)
[2020-04-04] MEDS ORDERED: ONDANSETRON 4 MG/2 ML VIAL ONE (15:05)
[2020-04-04] MEDS ORDERED: fentaNYL (PF) 50 MCG/ML 2 ML AMP ONE (15:05)
[2020-04-04] MEDS ORDERED: SODIUM CHLORIDE 0.9% 1,000 ML IV ONE (15:15)
--- NOTE | 2020-04-04 15:22 | PN ---
PROGRESS NOTE DATE OF SERVICE: 04/04/2020 REASON FOR FOLLOWUP: Right-sided pneumonia with parapneumonic effusion. INTERVAL HISTORY: The patient did spike a fever last night and one this morning. The patient denies having any rigors or any chills. The patient overall is feeling slightly better. She is breathing comfortably. Minimal cough. No sputum. No nausea, no vomiting and no abdominal pain or diarrhea. PHYSICAL EXAMINATION: Blood pressure is 96/58 with a pulse of 89, temperature 99.2. She is 92% on room air. General description is a middle-aged female up in the bed in no distress. RESPIRATORY SYSTEM: Unlabored breathing with decreased breath sounds at the base. No wheeze. HEART: S1, S2. Regular rate and rhythm. ABDOMEN: Soft. No tenderness. LABS: Hemoglobin is 11.1, white count 11.3, BUN of 8, creatinine 0.58. DIAGNOSTIC IMPRESSION AND PLAN: Patient with right lower lobe pneumonia with parapneumonic effusion and question of an abscess, status post thoracocentesis, now with evidence of loculated fluid for VATS procedure today. Sputum and the pleural fluid culture has been negative so far. Fever could be more likely secondary to hematoma or empyema. We will continue the patient on Unasyn, awaiting the VATS procedure and deep cultures. Antibiotic will be adjusted further based on the culture report. Continue supportive care. MMODL / IJN: [id number] / MTDD
--- NOTE | 2020-04-04 15:30 | P.PN ---
Subjective Progress Note Date: 04/04/20 Patient was seen and examined. No acute events overnight. Patient reports improved pleuritic chest pain over the past few days. Spastic pain improved after starting Valium. She denies any cough. She denies any chest pain or palpitations. No nausea or vomiting. No fever or chills. Plans for decortica tion and VATS by CT surgery today. Objective - Vital Signs Vital signs: Vital Signs Temp 99.2 F 04/04/20 11:27 Pulse 89 04/04/20 11:27 Resp 18 04/04/20 12:00 BP 96/58 04/04/20 11:27 Pulse Ox 92 L 04/04/20 11:27 Intake & Output 04/03/20 04/04/20 04/04/20 18:59 06:59 18:59 Intake Total 360 Balance 360 Weight 89.1 kg 88.7 kg Intake: IV 160 0.9 160 Intake, IV Titration 200 Amount Ampicillin-Sulbactam 3 gm 200 In Sodium Chloride 0.9% 100 ml @ 200 mls/hr IVPB Q6H [facility] Rx#:[id number] Other: Voiding Method Toilet Toilet # Voids 3 2 - Exam General: [non toxic], [mild distress], [appears at stated age] Derm: [warm], [dry] Head: [atraumatic], [normocephalic], [symmetric] Eyes: [EOMI], [no lid lag], [anicteric sclera] Mouth: [no lip lesion], [mucus membranes moist] Cardiovascular: [S1S2 reg], [no murmur], [positive posterior tibial pulse bilateral], Lungs: [Decreased breath sounds on the right with improved aeration than admission], [rhonchi over the right base] , [no accessory muscle use] Abdominal: [soft], [ nontender to palpation], [no guarding], [no appreciable organomegaly] Ext: [no gross muscle atrophy], [no edema], [no contractures] Neuro: [no focal neuro deficits] Psych: [Alert], [oriented], [appropriate affect] - Labs CBC & Chem 7: 04/04/20 07:40 04/04/20 07:40 Labs: Abnormal Lab Results - Last 24 Hours (Table) 04/03/20 04/04/2004/04/20 Range/Units 06:49 07:40 07:40 WBC 11.3 H (3.8-10.6) k/uL RBC 3.78 L (3.80-5.40) m/uL Hgb 11.1 L (11.4-16.0) gm/dL Plt Count 530 H (150-450) k/uL Neutrophils # 8.1 H (1.3-7.7) k/uL Glucose 106 H (74-99) mg/dL C-Reactive Protein 196.9 H (<10.0) mg/L Total Protein 6.2 L (6.3-8.2) g/dL Albumin 3.2 L (3.5-5.0) g/dL Microbiology - Last 24 Hours (Table) 03/30/20 00:59 Blood Culture - Preliminary Blood No Growth after 120 hours 04/01/20 13:45 Anaerobic Culture - Preliminary Pleural Fluid 03/28/20 17:50 Blood Culture - Final Blood No Growth after 144 hours 04/01/20 13:45 Gram Stain - Preliminary Pleural Fluid Body Fluid Culture - Preliminary 03/31/20 10:45 Gram Stain - Final Sputum Sputum Culture - Final Assessment and Plan Assessment: Pneumonia with probable pulmonary abscess and sepsis -DC IVF and encourage hydration by mouth -ID recs: Jossueo and Unasyn -CT surgery recommends VATS and decortication procedure today -COVID testing negative in outpatient setting -Pulmonary hygiene -s/p thoracentesis -Exudative -Culture Negative so far -Sputum culture shows rare PMN leukocytes, many gram-negative bacilli, many gram-positive cocci, few gram-negative cocci, rare budding yeast -Follow chest x-ray until clear Anemia normocytic -Hemoglobin 11.1. -Likely dilutional. -Continue to monitor. -Repeat CBC tomorrow morning Pleuritic chest pain secondary to abscess -Pain control -Trial of tramadol -Add Valium as a muscle relaxer Liver hemangioma - outpatient follow-up Thrombocytosis, resolved [Patient admitted for pneumonia with probable abscess. On IV antibiotics. Infectious disease and pulmonology on board. Cultures negative so far. Plans for VATS and decortication by CT surgery today.]
[2020-04-04] MEDS ORDERED: BUPIVACAINE (PF) 0.5% 30 ML VIAL SQ ONE ×2 (15:53→16:22)
[2020-04-04] MEDS ORDERED: LACTATED RINGERS 1,000 ML IV ONE (16:20)
--- NOTE | 2020-04-04 16:48 | P.OP ---
Date of Procedure: 04/04/20 Preoperative Diagnosis: Left lower lobe pneumonia, left loculated pleural collection consistent with hemothorax status post right pleural drainage Postoperative Diagnosis: Same, old hemothorax and inflammatory exudate in right pleural space Procedure(s) Performed: Right thoracoscopy, total decortication right lung Anesthesia: KHLOE Surgeon: Vinay Pak Estimated Blood Loss (ml): 20 IV fluids (ml): 350 Pathology: other (Right pleural content for pathology and cultures) Condition: stable Disposition: PACU Indications for Procedure: 59-year-old female presented with cough and fever, found to have right lower lobe pneumonia. Computed tomography scan was consistent with very small right pleural effusion as well as small pulmonary abscess. IV antibiotics was recommended. The patient underwent base ultrasound-guided thoracentesis of the right chest with drainage of 100 mL of serous fluid. Subsequent to this the patient became increasingly symptomatic and her chest x-ray worsened. Repeat computed tomography scan demonstrated multiloculated collection in the right pleural space. Suspicion was for hemothorax status post the thoracentesis and thoracoscopy with evacuation of hemothorax and decortication was recommended. Operative Findings: There was copious right pleural collection with a large amount of semisolid mucoid-like yellow material present in the right pleural space particularly in the gutter posteriorly and covering the entire right lower lobe and a portion of the middle lobe and upper lobe. Underneath this was some old laminated thrombus. There was no evidence of lung mass or obvious pulmonary abscess. Description of Procedure: Patient was brought to the operating room, placed supine on the operating table, anesthetized and intubated with a double-lumen endotracheal tube. Tube was positioned with fiberoptic bronchoscopy. No endobronchial lesions were noted. Tube was secured and the patient was turned in the left lateral decubitus position. The right chest was sterilely prepped and draped. Single lung ventilation was initiated. 2 one-inch incisions were made in the right chest one in the anterior axillary line in the sixth interspace and one in the p osterior axillary line in the seventh interspace. These were carried down through skin and subcutaneous tissue into the pleural space. There is a large amount of loculated material present in the pleural space. Decortication of the pleural space was performed. Was noted that as we removed the fibrinous mucoid material that underneath this was a layer of laminated thrombus particularly posteriorly and inferiorly. Once we had completely cleared the pleural space of abnormal material and cleared the surface of the lung completely, we copiously irrigated with a liter of warm saline and dissected free. Hemostasis and air stasis were both good. A 28-[place] chest tube was placed through separate stab incision and positioned posterior apically and the gutter. Was secured with Migel 0 silk suture. Rib blocks were performed at the level of the incisions with Marcaine half percent posteriorly. Incisions were then closed with layers of Vicryl suture after inflating the lung under thoracoscopic visualization. The incisions closed the can glue was applied and then dry sterile dressings were applied. This chest tube was connected to a Pleur-evac to suction. The patient was turned supine and extubated and transferred to recovery in stable condition.
[2020-04-04] MEDS ORDERED: KETOROLAC 15 MG/ML 1 ML VIAL IVP ONE (17:09)
--- NOTE | 2020-04-04 17:33 | XR ---
EXAMINATION TYPE: XR chest 1V portable DATE OF EXAM: 04/04/2020 COMPARISON: 04/01/2020 HISTORY: Postop chest tube TECHNIQUE: Single view FINDINGS: There is right chest tube with the tip at the right lung apex. There is tiny right apical p neumothorax less than 2%. There is some patchy atelectasis in the mid and lower lung syed bilateral ly. Heart size is normal. There is no gross heart failure. There are chest leads. There is blunting r ight costophrenic angle. IMPRESSION: Pleural fluid on the right side improved compared to old exam. There is patchy atelectasis in the mid and lower lung syed slightly worse than old exam. Tiny right apical pneumothorax.
[2020-04-04] MEDS ORDERED: ACETAMINOPHEN IV (For NPO) 1,000 MG in EMPTY BAG 1 BAG IVPB SCH (18:39)
[2020-04-04] MEDS ORDERED: MIDAZOLAM 2 MG/2 ML VIAL IV PRN (18:39)
[2020-04-04] MEDS ORDERED: SCOPOLAMINE 1.5MG/72HR PATCH TRANSDERM ONE (18:39)
[2020-04-04] MEDS ORDERED: DEXAMETHASONE SOD PHOSPHATE 10 MG/ML 1 ML VIAL IV ONE (18:39)
[2020-04-04] MEDS: DEXTROSE 5%-0.45% NACL 1,000 ML IV SCH (18:51)
[2020-04-04] MEDS: traMADol 50 MG TAB PO PRN (20:30)
[2020-04-04] MEDS: HEPARIN SODIUM,PORCINE 5,000 UNIT/ML 1 ML VIAL SQ SCH (23:51)
[2020-04-04] MEDS: KETOROLAC 15 MG/ML 1 ML VIAL IVP SCH (23:52)
[2020-04-05] MEDS: AMPICILLIN-SULBACTAM 3 GM in SODIUM CHLORIDE 0.9% 100 ML IVPB SCH ×4 (02:46→19:58)
[2020-04-05] MEDS: KETOROLAC 15 MG/ML 1 ML VIAL IVP SCH ×3 (06:43→17:00)
[2020-04-05 06:44] LABS: Basophils % (A) 0 %; Eosinophils # (A) 0.1 k/uL (0-0.7); Eosinophils % (A) 0 %; HCT 29.5 % (34.0-46.0); Lymphocytes # (A) 2.4 k/uL (1.0-4.8); Lymphocytes % (A) 18 %; MCH 28.7 pg (25.0-35.0); MCHC 31.7 g/dL (31.0-37.0); MCV 90.6 fL (80.0-100.0); Mean Platelet Volume 6.7; Monocytes # (A) 1.1 k/uL (0-1.0); Monocytes % (A) 8 %; Neutrophils # (A) 9.1 k/uL (1.3-7.7); Neutrophils % (A) 71 %; Platelet Count 446 k/uL (150-450); RBC 3.26 m/uL (3.80-5.40); RDW 12.1 % (11.5-15.5); WBC 12.9 k/uL (3.8-10.6)
[2020-04-05 06:52] LABS: HGB 9.4 gm/dL (11.4-16.0)
[2020-04-05 07:17] LABS: ALT 9 U/L (4-34); AST 14 U/L (14-36); African American GFR (CKD) >90 (>60 ml/min/1.73 sqM); Albumin 2.7 g/dL (3.5-5.0); Alkaline Phosphatase 67 U/L (38-126); Anion Gap 9 mmol/L; Blood Urea Nitrogen 9 mg/dL (7-17); Carbon Dioxide 29 mmol/L (22-30); Chloride 99 mmol/L (98-107); Glucose 101 mg/dL (74-99); Non-African American GFR(CKD) >90 (>60 ml/min/1.73 sqM); Potassium 4.4 mmol/L (3.5-5.1); Sodium 137 mmol/L (137-145); Total Bilirubin 0.5 mg/dL (0.2-1.3); Total Protein 5.4 g/dL (6.3-8.2)
--- NOTE | 2020-04-05 07:29 | XR ---
EXAMINATION TYPE: XR chest 1V DATE OF EXAM: 04/05/2020 HISTORY: Shortness of breath. COMPARISON: 04/04/2020 TECHNIQUE: Single view of the chest is submitted. FINDINGS: Right-sided chest tube is unchanged in position. Small residual pneumothorax is unchanged. Right basi lar pleural-parenchymal opacity is stable. The heart is stable. Hilar and mediastinal structures are within normal limits. Degenerative changes are seen of the dorsal spine. IMPRESSION: 1. Right-sided chest tube is unchanged in position. Small residual pneumothorax is unchanged. Right basilar pleural-parenchymal opacity is stable.
[2020-04-05] MEDS: HEPARIN SODIUM,PORCINE 5,000 UNIT/ML 1 ML VIAL SQ SCH ×3 (08:22→23:53)
--- NOTE | 2020-04-05 09:23 | P.PN ---
Subjective Progress Note Date: 04/05/20 Principal diagnosis: Right lower lobe pneumonia, right loculated pleural collection consistent with hemothorax status post right pleural drainage, pulmonary abcess with a past medi magan history significant for basal cell carcinoma, status post resection to her face, difficulty swallowing, sleep apnea, depression, anxiety and daily marijuana use. POD #1 right thoracoscopy, total decortication right lung. POD #4 right thoracentesis performed by interventional radiology with subsequent loculated fluid. The patient is seen in follow-up today 04/05/2020 at her bedside on the cardiac stepdown unit. She is awake, alert and oriented 3 and is in no acute distress. Currently she denies any complaints of shortness of breath or pain. Oxygen saturation are 93% on room air and she is achieving 750-1000 mL on her incentive spirometry with encouragement. Right pleural chest tube is in place to low continuous wall suction -20 cm H2O. No air leaks present. Draining thin sero sanguineous drainage with 100 mL output in the last 8 hours and 300 mL output since surgery. She remains afebrile since surgery. Laboratory results this morning show a WBC count 12.9, hemoglobin 9.4, , BUN 9, creatinine 0.61. Gram stain tissue culture shows no polymorphonuclear leukocytes, no organisms seen. Unasyn for antibiotic coverage remains in place and is managed by infectious disease. Objective - Vital Signs Vital signs: Vital Signs Temp 98.4 F 04/05/20 08:33 Pulse 85 04/05/20 08:33 Resp 16 04/05/20 08:33 BP 98/54 04/05/20 08:33 Pulse Ox 93 L 04/05/20 08:33 Intake & Output 04/04/20 04/05/20 04/05/20 18:59 06:59 18:59 Intake Total 450 580 Output Total 130 400 Balance 320 -400 580 Weight 89.1 kg Intake: IV 450 480 0.9 480 Intake, IV Titration 100 Amount Ampicillin-Sulbactam 3 gm 100 In Sodium Chloride 0.9% 100 ml @ 200 mls/hr IVPB Q6H [facility] Rx#:[id number] Output: Urine 400 Pleural Fluid 110 Estimated Blood Loss 20 Other: Voiding Method Toilet Toilet - Constitutional General appearance: Present: cooperative, no acute distress, obese - EENT Eyes: Present: PERRLA. Absent: scleral icterus ENT: Present: hearing grossly normal - Neck Details: Neck is supple, no JVD. - Respiratory Details: Lungs sounds essentially clear to her bilateral upper lobes, diminished to her bilateral bases with few scattered crackles right greater than left. Respirations are symmetrical and nonlabored. Oxygen saturation are 93% on room air. Achieving 750-1000 mL on her incentive spirometry. Right pleural chest tube remains in place to low continuous wall suction -20 cm H2O. No air leak is present. Draining thin serosanguineous drainage with 100 mL output in the last 8 hours, 300 mL output since surgery. - Cardiovascular Details: Regular rhythm and rate. S1 and S2 present, negative for S3, gallop or murmur. No edema present. Remote telemetry showing normal sinus rhythm heart rate 88 BPM. - Gastrointestinal Gastrointestinal Comment(s): Abdomen is soft, nontender and nondistended. Active bowel sounds present in all 4 abdominal quadrants. No guarding or rigidity. No organomegaly appreciated. Passing flatus. - Genitourinary Genitourinary Comment(s): Continues to void. - Integumentary Integumentary Comment(s): Skin is warm and dry. No clubbing or cyanosis is present. Dressings are clean, dry and in place to her right chest thoracoscopic incision sites. - Neurologic Neurologic: Present: CNII-XII intact - Musculoskeletal Musculoskeletal: Present: gait normal, generalized weakness, strength equal bilaterally - Psychiatric Psychiatric: Present: A&O x's 3, appropriate affect, intact judgment & insight - Allied health notes Allied health notes reviewed: nursing - Labs CBC & Chem 7: 04/05/20 06:20 04/05/20 06:20 Labs: Abnormal Lab Results - Last 24 Hours (Table) 04/05/20 04/05/20 Range/Units 06:20 06:20 WBC 12.9 H (3.8-10.6) k/uL RBC 3.26 L (3.80-5.40) m/uL Hgb 9.4 L D (11.4-16.0) gm/dL Hct 29.5 L (34.0-46.0) % Neutrophils # 9.1 H (1.3-7.7) k/uL Monocytes # 1.1 H (0-1.0) k/uL Glucose 101 H (74-99) mg/dL Calcium 8.0 L (8.4-10.2) mg/dL Total Protein 5.4 L (6.3-8.2) g/dL Albumin 2.7 L (3.5-5.0) g/dL Microbiology - Last 24 Hours (Table) 04/04/20 16:45 Gram Stain - Preliminary Pleural Fluid Tissue Culture - Preliminary 03/30/20 00:59 Blood Culture - Final Blood No Growth after 144 hours 04/04/20 16:45 Fungal Culture - Preliminary Pleural Fluid 04/04/20 16:45 Anaerobic Culture - Preliminary Pleural Fluid 04/04/20 16:45 Acid Fast Bacilli Culture - Preliminary Pleural Fluid 04/03/20 21:44 Blood Culture - Preliminary Blood No Growth after 24 hours 04/01/20 13:45 Gram Stain - Preliminary Pleural Fluid Body Fluid Culture - Preliminary - Imaging and Cardiology Chest x-ray: report reviewed, image reviewed Assessment and Plan Assessment: 1. Fever, secondary to right lower lobe consolidation, suspect community- acquired pneumonia with possible abscess versus aspiration, status post right thoracoscopy, total decortication right lung 2. Weakness with, joint pain and body aches 3. History of basal cell carcinoma removed from her face in August 2018 4. Daily marijuana use 5. History of aspiration, difficulty swallowing Plan: 1. Keep right pleural chest tube in place, remove wall suction and placed to waterseal. Anticipate removal of right pleural chest tube in the next 24 hours. 2. Continue antibiotic management per infectious disease. 3. Encourage incentive spirometer, use 10x hour while awake. 4. Encourage frequent ambulation, out of bed for all meals. 5. Management of other comoribidites per primary care. 6. Pain management per current when necessary orders. 7. GI and DVT prophylaxis. 8. Cultures pending, continue to follow. 9. More recommendations to follow based on patient's clinical course. Time with Patient: Greater than 30
--- NOTE | 2020-04-05 12:09 | P.PN ---
Subjective Progress Note Date: 04/05/20 Patient was seen and examined. No acute events overnight. Patient reports improved pleuritic chest pain over the past few days. Spastic pain improved after starting Valium. She denies any cough. She denies any chest pain or palpitations. No nausea or vomiting. No fever or chills. Underwent decortic ation and VATS by CT surgery yesterday POD 1. 300 mL drained from right-sided chest tube overnight serosanguineous bloody fluid. Chest x-ray shows right- sided chest tube, small residual pneumothorax. Objective - Vital Signs Vital signs: Vital Signs Temp 98.4 F 04/05/20 08:33 Pulse 85 04/05/20 08:33 Resp 16 04/05/20 08:33 BP 98/54 04/05/20 08:33 Pulse Ox 93 L 04/05/20 08:33 Intake & Output 04/04/20 04/05/20 04/05/20 18:59 06:59 18:59 Intake Total 450 580 Output Total 130 400 Balance 320 -400 580 Weight 89.1 kg Intake: IV 450 480 0.9 480 Intake, IV Titration 100 Amount Ampicillin-Sulbactam 3 gm 100 In Sodium Chloride 0.9% 100 ml @ 200 mls/hr IVPB Q6H [facility] Rx#:[id number] Output: Urine 400 Pleural Fluid 110 Estimated Blood Loss 20 Other: Voiding Method Toilet Toilet - Exam General: [non toxic], [mild distress], [appears at stated age] Derm: [warm], [dry] Head: [atraumatic], [normocephalic], [symmetric] Eyes: [EOMI], [no lid lag], [anicteric sclera] Mouth: [no lip lesion], [mucus membranes moist] Cardiovascular: [S1S2 reg], [no murmur], [positive posterior tibial pulse bilateral], Lungs: [Decreased breath sounds on the right with improved aeration than admission], [rhonchi over the right base] , [no accessory muscle use], chest tube in place with 300 mL bloody discharge to waterseal Abdominal: [soft], [ nontender to palpation], [no guarding], [no appreciable organomegaly] Ext: [no gross muscle atrophy], [no edema], [no contractures] Neuro: [no focal neuro deficits] Psych: [Alert], [oriented], [appropriate affect] - Labs CBC & Chem 7: 04/05/20 06:20 04/05/20 06:20 Labs: Abnormal Lab Results - Last 24 Hours (Table) 04/05/20 04/05/20 Range/Units 06:20 06:20 WBC 12.9 H (3.8-10.6) k/uL RBC 3.26 L (3.80-5.40) m/uL Hgb 9.4 L D (11.4-16.0) gm/dL Hct 29.5 L (34.0-46.0) % Neutrophils # 9.1 H (1.3-7.7) k/uL Monocytes # 1.1 H (0-1.0) k/uL Glucose 101 H (74-99) mg/dL Calcium 8.0 L (8.4-10.2) mg/dL Total Protein 5.4 L (6.3-8.2) g/dL Albumin 2.7 L (3.5-5.0) g/dL Microbiology - Last 24 Hours (Table) 04/04/20 16:45 Gram Stain - Preliminary Pleural Fluid Tissue Culture - Preliminary 03/30/20 00:59 Blood Culture - Final Blood No Growth after 144 hours 04/04/20 16:45 Fungal Culture - Preliminary Pleural Fluid 04/04/20 16:45 Anaerobic Culture - Preliminary Pleural Fluid 04/04/20 16:45 Acid Fast Bacilli Culture - Preliminary Pleural Fluid 04/03/20 21:44 Blood Culture - Preliminary Blood No Growth after 24 hours 04/01/20 13:45 Gram Stain - Preliminary Pleural Fluid Body Fluid Culture - Preliminary Assessment and Plan Assessment: Pneumonia with probable pulmonary abscess and sepsis -DC IVF and encourage hydration by mouth -ID recs: Vanco and Unasyn -CT surgery recs: -POD 1 VATS and decortication -Plans to remove chest tube tomorrow -Cultures are pending -COVID testing negative in outpatient setting -Pulmonary hygiene -s/p thoracentesis -Exudative -Culture Negative so far -Sputum culture shows rare PMN leukocytes, many gram-negative bacilli, many gram-positive cocci, few gram-negative cocci, rare budding yeast -Follow chest x-ray until clear Acute blood loss anemia -Hemoglobin 9.4 -Expected results of surgery -Transfuse if hemoglobin less than 7 -Repeat CBC tomorrow morning Leukocytosis -Likely reactive from surgery -Patient has been afebrile over the past 24 hours -Repeat CBC tomorrow morning Pleuritic chest pain secondary to abscess -Pain control -Trial of tramadol, Toradol -Add Valium as a muscle relaxer Liver hemangioma - outpatient follow-up Thrombocytosis, resolved [Patient admitted for pneumonia with probable abscess. On IV antibiotics. Infectious disease and pulmonology on board. Cultures negative so far. POD 1 VATS and decortication by CT surgery.]
--- NOTE | 2020-04-05 13:34 | P.PN ---
Subjective Progress Note Date: 04/05/20 Principal diagnosis: Right lower lobe community-acquired pneumonia This is a very pleasant 59-year-old female patient was a history of skin cancer. [place] [facility] [place] was [place] well. After her return home she developed joint pain headache fever as high as 103. She had some right sided chest discomfort. She thought maybe she had coving was checked in the outpatient setting that was reported as negative. She presented here to the emergency room last evening with ongoing symptoms. Computed tomography scan revealed consolidation at the right posterior lung base with rounded fluid density suspicious for pneumonia with lung abscess and small right pleural effusion. She is seen today in consultation on the selective care unit. She is up in a chair at the bedside. Awake and alert in no acute distress. She did have a temperature earlier today of 101.1. She is maintaining O2 saturations in the mid 90s on room air. She's been hemodynamically stable. White count 14.2. Hemoglobin 11.4. Sodium 137. Potassium 4.1. Creatinine 0.60. She's been initiated on Unasyn and vancomycin. The patient is seen today 03/30/2020 in follow-up on the selective care unit. She is currently sitting up in a chair at the bedside. Awake and alert in no acute distress. She is maintaining good O2 saturations in the mid 90s on room air. She continues to spike fevers currently 100.1. She is slightly tachycardic. No tachypnea. Blood culture reveals no growth to date. White count 11.4. Hemoglobin 10.6. Sodium 136. Potassium 3.6. Creatinine 0.51. Pro-calcitonin 0.10. C-reactive protein 47.3. LDH 500. Chest x-ray shows worsening airspace disease occupying the right middle and lower lung. She remains on Unasyn and vancomycin. ID is on the case. On 03/31/2020 patient seen in follow-up on selective care unit. She is resting in the recliner, in no acute distress, still having some right lower chest and back discomfort, though somewhat improved. Breathing improved, room air pulse ox is 93%, hemodynamically stable, still having some low-grade fevers, with a T- max of 100.7F in the last 24 hours. Today's chest x-ray has been reviewed showing continued moderate right pleural effusion with adjacent atelectasis and consolidation extending up to the mid lung level, with minimally improved aeration. Right chest ultrasound showed loculated right-sided pleural effusion, with right pleural effusion pocket size of 4.7 cm. Patient on combination of Unasyn and vancomycin. Today's labs 7 reviewed, showing white blood cell count of 11.4, hemoglobin of 10.6, sodium of 136, resting electrolytes are within normal limits, BUN of 5 creatinine 0.51. Patient is receiving morphine for chest pain control. No hemoptysis. The patient is seen today 04/02/2020 in follow-up on the selective care unit. She is currently sitting up at the bedside. Awake and alert in no acute distress. She did undergo ultrasound guided thoracentesis however only 60 ML's of fluid was returned. Cytology is pending. Fluid is exudate with a protein of 3.2. LDH 1118. Glucose 35. She is continued on vancomycin and Unasyn. Follow-up computed tomography scan today reveals a small to moderate-sized non- simple right pleural fluid collection redemonstrated with 2 air-filled levels noted posterior lower pleural space. There is associated right lower lung atelectasis with limited consolidation. The patient is seen today 04/04/2020 in follow-up on the selective care unit. She is currently sitting up in a chair at the bedside. Awake and alert in no acute distress. She continues to spike temperatures he was 101.1 this a.m. She is maintaining good O2 saturations in the 90s on room air. Pleural fluid cultures pending. Blood cultures reveal no growth. Sputum culture revealed no growth. Pleural fluid cytology revealed pyohorax characterized by reactive mesothelial cells and abundant acute inflammatory cells. No neoplastic cells identified. The plan is for a right-sided video-assisted thoracoscopic surgery with drainage of fluid and decortication today. The patient is seen today 04/05/2020 in follow-up on the selective care unit. She is currently awake and alert in no acute distress. Sitting up in bed. Maintaining O2 saturations in the 90s on room air. She's afebrile. Hemodynamically stable. She did undergo a right-sided video-assisted or chest Surgery with drainage of fluid and decortication yesterday. Postoperative day #1. Right-sided chest tube remains in place. Currently to waterseal. No leak noted. Chest x-ray reveals small residual pneumothorax. Right basilar pleural parenchymal opacity is stable. Working well with the incentive spirometer. Remains on Unasyn. Objective - Vital Signs Vital signs: Vital Signs Temp 98.5 F 04/05/20 12:43 Pulse 87 04/05/20 12:43 Resp 16 04/05/20 12:43 BP 106/58 04/05/20 12:43 Pulse Ox 93 L 04/05/20 12:43 Intake & Output 04/04/20 04/05/20 04/05/20 18:59 06:59 18:59 Intake Total 450 580 Output Total 130 400 Balance 320 -400 580 Weight 89.1 kg Intake: IV 450 480 0.9 480 Intake, IV Titration 100 Amount Ampicillin-Sulbactam 3 gm 100 In Sodium Chloride 0.9% 100 ml @ 200 mls/hr IVPB Q6H [facility] Rx#:[id number] Output: Urine 400 Pleural Fluid 110 Estimated Blood Loss 20 Other: Voiding Method Toilet Toilet - Exam GENERAL EXAM: Alert, active, very pleasant 59-year-old female patient, room air, O2 saturation 93%, comfortable in no apparent distress. HEAD: Normocephalic. EYES: Normal reaction of pupils, equal size. NOSE: Clear with pink turbinates. THROAT: No erythema or exudates. NECK: No masses, no JVD. CHEST: No chest wall deformity. Right-sided chest tube remains in place to waterseal. No leak. LUNGS: Equal air entry with crackles, diminished in the right base. CVS: S1 and S2 normal with no audible murmur, regular rhythm. ABDOMEN: No hepatosplenomegaly, normal bowel sounds, no guarding or rigidity. SPINE: No scoliosis or deformity SKIN: No rashes CENTRAL NERVOUS SYSTEM: No focal deficits, tone is normal in all 4 extremities. EXTREMITIES: There is no peripheral edema. No clubbing, no cyanosis. Peripheral pulses are intact. - Labs CBC & Chem 7: 04/05/20 06:20 04/05/20 06:20 Labs: Abnormal Lab Results - Last 24 Hours (Table) 04/05/20 04/05/20 Range/Units 06:20 06:20 WBC 12.9 H (3.8-10.6) k/uL RBC 3.26 L (3.80-5.40) m/uL Hgb 9.4 L D (11.4-16.0) gm/dL Hct 29.5 L (34.0-46.0) % Neutrophils # 9.1 H (1.3-7.7) k/uL Monocytes # 1.1 H (0-1.0) k/uL Glucose 101 H (74-99) mg/dL Calcium 8.0 L (8.4-10.2) mg/dL Total Protein 5.4 L (6.3-8.2) g/dL Albumin 2.7 L (3.5-5.0) g/dL Microbiology - Last 24 Hours (Table) 04/04/20 16:45 Gram Stain - Preliminary Pleural Fluid Tissue Culture - Preliminary 03/30/20 00:59 Blood Culture - Final Blood No Growth after 144 hours 04/04/20 16:45 Fungal Culture - Preliminary Pleural Fluid 04/04/20 16:45 Anaerobic Culture - Preliminary Pleural Fluid 04/04/20 16:45 Acid Fast Bacilli Culture - Preliminary Pleural Fluid 04/03/20 21:44 Blood Culture - Preliminary Blood No Growth after 24 hours 04/01/20 13:45 Gram Stain - Preliminary Pleural Fluid Body Fluid Culture - Preliminary Assessment and Plan Assessment: Febrile illness secondary to right lower lobe consolidation, suspect community- acquired pneumonia with possible abscess versus aspiration. Initial CoVID screen in the outpatient setting reported as negative. Follow-up Covid screen from ER 03/28/2020 is negative, urine legionella antigen negative. Follow-up CAT scan revealed small to moderate-sized non-simple right pleural fluid collection re demonstrated with 2 air fluid levels noted in the posterior lower pleural space. There is associated right lower lobe atelectasis and/or limited consolidation. She remains on Unasyn. Thoracentesis cytology positive for pyothorax characterized by reactive mesothelial cells and abundant acute inflammatory cells. Right-sided VATS procedure with decortication performed yesterday 04/04/2020. Postoperative day #1. Joint pain, fatigue, weakness secondary to above History of skin cancer Lifelong nonsmoker Plan: The patient was seen and evaluated by Dr. Thao Chest x-ray reviewed Right-sided chest tube in place to waterseal, no leak She remains on Unasyn Working well with the incentive spirometer We will continue to follow and make further recommendations based on her clinical status I, the cosigning physician, performed a history & physical examination of the patient. Lungs sounds with few crackles, diminished in the right lung base. Maintaining good O2 saturations in the 90s on room air. I discussed the assessment and plan of care with my nurse practitioner, Yelena Benavidez. I attest to the above note as dictated by her.
--- NOTE | 2020-04-05 16:22 | PN ---
PROGRESS NOTE DATE OF SERVICE: 04/05/2020 REASON FOR FOLLOWUP: Right-sided pneumonia and parapneumonic effusion. INTERVAL HISTORY: The patient was taken to the OR yesterday. The patient is status post thoracotomy and chest tube placement with a question of hematoma and possible infected fluid. Culture has been sent which is currently pending. Patient denies having any worsening shortness of breath. Pain is currently controlled with pain medication. No nausea, vomiting, abdominal pain or diarrhea. PHYSICAL EXAMINATION: Blood pressure 106/58 with a pulse of 87, temperature 98.5. She is 93% on room air. General description is an elderly female lying in bed in no distress. Respiratory system: Unlabored breathing, decreased breath sounds at the base. No wheeze. Heart S1, S2. Regular rate and rhythm. Abdomen is soft, no tenderness. LABS: Hemoglobin 9.4, white count 12.9, BUN of 9, creatinine 0.61. DIAGNOSTIC IMPRESSION AND PLAN: Patient with right-sided pneumonia with parapneumonic effusion status post thoracotomy and deep cultures. Those are currently pending. Patient to continue with Unasyn adjusting further based on culture report. Continue supportive care. MMODL / IJN: [id number] /
[2020-04-06] MEDS: KETOROLAC 15 MG/ML 1 ML VIAL IVP SCH ×4 (00:02→17:07)
[2020-04-06] MEDS: AMPICILLIN-SULBACTAM 3 GM in SODIUM CHLORIDE 0.9% 100 ML IVPB SCH ×4 (02:46→20:04)
[2020-04-06 06:20] LABS: HGB 9.1 gm/dL (11.4-16.0); MCH 28.7 pg (25.0-35.0); MCHC 31.4 g/dL (31.0-37.0); MCV 91.4 fL (80.0-100.0); Platelet Count 444 k/uL (150-450); RBC 3.17 m/uL (3.80-5.40); RDW 12.1 % (11.5-15.5); WBC 9.1 k/uL (3.8-10.6)
[2020-04-06 06:28] LABS: Chloride 104 mmol/L (98-107)
[2020-04-06 06:30] LABS: African American GFR (CKD) >90 (>60 ml/min/1.73 sqM); Anion Gap 6 mmol/L; Blood Urea Nitrogen 8 mg/dL (7-17); Calcium 8.2 mg/dL (8.4-10.2); Carbon Dioxide 28 mmol/L (22-30); Glucose 103 mg/dL (74-99); Non-African American GFR(CKD) >90 (>60 ml/min/1.73 sqM); Potassium 4.2 mmol/L (3.5-5.1); Sodium 138 mmol/L (137-145)
--- NOTE | 2020-04-06 06:45 | XR ---
EXAMINATION TYPE: XR chest 1V portable DATE OF EXAM: 04/06/2020 CLINICAL HISTORY: Postoperative right-sided cardiac surgery progress study. TECHNIQUE: Single AP portable upright view of the chest is obtained. COMPARISON: Chest x-ray from one day earlier and older studies. CT chest 4 days ago. FINDINGS: Stable right apical chest tube. Persistent right basilar lateral pneumothorax. No mediasti nal shift. Persistent patchy bibasilar atelectasis and/or infiltrates. Cardiac silhouette size stable and within normal limits. Osseous structures intact. IMPRESSION: Right apical chest tube with tiny right lateral basilar pneumothorax. Patchy bibasilar at electasis and/or infiltrates. No significant change from one day earlier.
[2020-04-06] MEDS: HEPARIN SODIUM,PORCINE 5,000 UNIT/ML 1 ML VIAL SQ SCH ×2 (08:09→17:06)
--- NOTE | 2020-04-06 08:37 | P.PN ---
Subjective Progress Note Date: 04/06/20 Principal diagnosis: Right lower lobe pneumonia, right loculated pleural collection consistent with hemothorax status post right pleural drainage, pulmonary abcess with a past medi magan history significant for basal cell carcinoma, status post resection to her face, difficulty swallowing, sleep apnea, depression, anxiety and daily marijuana use. POD #2 right thoracoscopy, total decortication right lung. POD #5 right thoracentesis performed by interventional radiology with subsequent loculated fluid. The patient is seen in follow-up today 04/06/2020 at her bedside on the cardiac stepdown unit. She is awake, alert and oriented 3 and is in no acute distress. Currently she denies any complaints of shortness of breath or pain, but states that she just feels achy all over. Oxygen saturation are 94% on room air and she is achieving 3363-3282 mL on her incentive spirometry with encouragement. Right pleural chest tube is in place to water seal. No air leak present. Draining thin serosanguineous drainage with 80 mL output in the last 24 hours. Her T-max temperature in the last 24 hours was 101F. Laboratory results this morning show a WBC count 9.1, hemoglobin 9.1, , BUN , creatinine 0.53. Pleural tissue cultures remain showing no growth after 24 hours. Unasyn for antibiotic coverage remains in place and is managed by infectious disease. Objective - Vital Signs Vital signs: Vital Signs Temp 98.0 F 04/06/20 04:08 Pulse 84 04/06/20 04:08 Resp 18 04/06/20 04:08 BP 107/63 04/06/20 04:08 Pulse Ox 94 L 04/06/20 04:08 Intake & Output 04/05/20 04/06/20 04/06/20 18:59 06:59 18:59 Intake Total 580 50 Output Total 50 Balance 530 50 Weight 89.4 kg Intake: IV 480 0.9 480 Intake, IV Titration 100 50 Amount Ampicillin-Sulbactam 3 gm 100 50 In Sodium Chloride 0.9% 100 ml @ 200 mls/hr IVPB Q6H [facility] Rx#:[id number] Output: Chest Tube Drainage 50 Chest Tube Right Lateral 50 Chest Other: Voiding Method Toilet Toilet # Voids 1 - Constitutional General appearance: Present: cooperative, no acute distress, obese - EENT Eyes: Present: PERRLA, dentition normal, normal appearance. Absent: scleral icterus ENT: Present: hearing grossly normal - Neck Details: Neck is supple, no JVD. No lymphadenopathy. - Respiratory Details: Lungs sounds essentially clear to her bilateral upper lobes, diminished or bilateral bases with few scattered crackles. Respirations are symmetrical and nonlabored. Oxygen saturation is 94% on room air. Achieving 1000 mL to 1250 mL on her incentive spirometry. Right pleural chest tube remains in place to water seal. No air leak is present. Draining thin serosanguineous drainage with 80 mL output in the last 24 hours. - Cardiovascular Details: Regular rhythm and rate. S1 and S2 present, negative for S3, gallop or murmur. Remote telemetry showing normal sinus rhythm heart rate 84 BPM. No edema present. Knee-high sequential compression devices in place to her bilateral lower extremities. - Gastrointestinal Gastrointestinal Comment(s): Abdomen is soft, nontender and nondistended. Active bowel sounds present in all 4 abdominal quadrants. No guarding or rigidity. No organomegaly appreciated. Tolerating oral intake. Passing flatus. - Genitourinary Genitourinary Comment(s): Continues to void. - Integumentary Integumentary Comment(s): Skin is warm and dry. No clubbing or cyanosis is present. Right thoracoscopy chest incisions clean, dry and intact. Dressings clean, dry and in place. - Neurologic Neurologic: Present: CNII-XII intact - Musculoskeletal Musculoskeletal: Present: gait normal, generalized weakness, strength equal bilaterally - Psychiatric Psychiatric: Present: A&O x's 3, appropriate affect, intact judgment & insight - Allied health notes Allied health notes reviewed: nursing - Labs CBC & Chem 7: 04/06/20 05:22 04/06/20 05:22 Labs: Abnormal Lab Results - Last 24 Hours (Table) 04/06/20 04/06/20 Range/Units 05:22 05:22 RBC 3.17 L (3.80-5.40) m/uL Hgb 9.1 L (11.4-16.0) gm/dL Hct 29.0 L (34.0-46.0) % Glucose 103 H (74-99) mg/dL Calcium 8.2 L (8.4-10.2) mg/dL Microbiology - Last 24 Hours (Table) 08/20/20 21:44 Blood Culture - Preliminary Blood No Growth after 48 hours 04/01/20 13:45 Anaerobic Culture - Final Pleural Fluid 04/01/20 13:45 Gram Stain - Final Pleural Fluid Body Fluid Culture - Final 04/04/20 16:45 Acid Fast Bacilli Smear - Final Pleural Fluid Acid Fast Bacilli Culture - Preliminary 04/04/20 16:45 Gram Stain - Preliminary Pleural Fluid Tissue Culture - Preliminary - Imaging and Cardiology Chest x-ray: report reviewed, image reviewed Assessment and Plan Assessment: 1. Right lower lobe pneumonia, right loculated pleural fluid collection consistent with hemothorax, status post right thoracoscopy, total decortication right lung. 2. Fever, secondary to right lower lobe consolidation, suspect community- acquired pneumonia with possible abscess versus aspiration, status post right thoracoscopy, total decortication right lung 3. Weakness with, joint pain and body aches 4. History of basal cell carcinoma removed from her face in August 2018 5. Daily marijuana use 6. History of aspiration, difficulty swallowing Plan: 1. We will keep her right pleural chest tube in place to water seal. Anticipate removal of right pleural chest tube within the next 24 hours. 2. Continue antibiotic management per infectious disease. 3. Encourage use of her incentive spirometry 10 times every hour while awake. 4. Encourage frequent ambulation, out of bed for all meals. 5. Management of other comoribidites per primary care. 6. Pain management per current when necessary orders. 7. GI and DVT prophylaxis. 8. Cultures showing no growth after 24 hours, continue to follow. 9. More recommendations to follow based on patient's clinical course. Time with Patient: Greater than 30
--- NOTE | 2020-04-06 11:21 | P.PN ---
Subjective Progress Note Date: 04/06/20 Principal diagnosis: Right lower lobe community-acquired pneumonia This is a very pleasant 59-year-old female patient was a history of skin cancer. [place] [facility] [place] was [place]. After her return home she developed joint pain headache fever as high as 103. She had some right sided chest discomfort. She thought maybe she had coving was checked in the outpatient setting that was reported as negative. She presented here to the emergency room last evening with ongoing symptoms. Computed tomography scan revealed consolidation at the right posterior lung base with rounded fluid density suspicious for pneumonia with lung abscess and small right pleural effusion. She is seen today in consultation on the selective care unit. She is up in a chair at the bedside. Awake and alert in no acute distress. She did have a temperature earlier today of 101.1. She is maintaining O2 saturations in the mid 90s on room air. She's been hemodynamically stable. White count 14.2. Hemoglobin 11.4. Sodium 137. Potassium 4.1. Creatinine 0.60. She's been initiated on Unasyn and vancomycin. The patient is seen today 03/30/2020 in follow-up on the selective care unit. She is currently sitting up in a chair at the bedside. Awake and alert in no acute distress. She is maintaining good O2 saturations in the mid 90s on room air. She continues to spike fevers currently 100.1. She is slightly tachycardic. No tachypnea. Blood culture reveals no growth to date. White count 11.4. Hemoglobin 10.6. Sodium 136. Potassium 3.6. Creatinine 0.51. Pro-calcitonin 0.10. C-reactive protein 47.3. LDH 500. Chest x-ray shows worsening airspace disease occupying the right middle and lower lung. She remains on Unasyn and vancomycin. ID is on the case. On 03/31/2020 patient seen in follow-up on selective care unit. She is resting in the recliner, in no acute distress, still having some right lower chest and back discomfort, though somewhat improved. Breathing improved, room air pulse ox is 93%, hemodynamically stable, still having some low-grade fevers, with a T- max of 100.7F in the last 24 hours. Today's chest x-ray has been reviewed showing continued moderate right pleural effusion with adjacent atelectasis and consolidation extending up to the mid lung level, with minimally improved aeration. Right chest ultrasound showed loculated right-sided pleural effusion, with right pleural effusion pocket size of 4.7 cm. Patient on combination of Unasyn and vancomycin. Today's labs 7 reviewed, showing white blood cell count of 11.4, hemoglobin of 10.6, sodium of 136, resting electrolytes are within normal limits, BUN of 5 creatinine 0.51. Patient is receiving morphine for chest pain control. No hemoptysis. The patient is seen today 04/02/2020 in follow-up on the selective care unit. She is currently sitting up at the bedside. Awake and alert in no acute distress. She did undergo ultrasound guided thoracentesis however only 60 ML's of fluid was returned. Cytology is pending. Fluid is exudate with a protein of 3.2. LDH 1118. Glucose 35. She is continued on vancomycin and Unasyn. Follow-up computed tomography scan today reveals a small to moderate-sized non- simple right pleural fluid collection redemonstrated with 2 air-filled levels noted posterior lower pleural space. There is associated right lower lung atelectasis with limited consolidation. The patient is seen today 04/04/2020 in follow-up on the selective care unit. She is currently sitting up in a chair at the bedside. Awake and alert in no acute distress. She continues to spike temperatures he was 101.1 this a.m. She is maintaining good O2 saturations in the 90s on room air. Pleural fluid cultures pending. Blood cultures reveal no growth. Sputum culture revealed no growth. Pleural fluid cytology revealed pyohorax characterized by reactive mesothelial cells and abundant acute inflammatory cells. No neoplastic cells identified. The plan is for a right-sided video-assisted thoracoscopic surgery with drainage of fluid and decortication today. The patient is seen today 04/05/2020 in follow-up on the selective care unit. She is currently awake and alert in no acute distress. Sitting up in bed. Maintaining O2 saturations in the 90s on room air. She's afebrile. Hemodynamically stable. She did undergo a right-sided video-assisted or chest Surgery with drainage of fluid and decortication yesterday. Postoperative day #1. Right-sided chest tube remains in place. Currently to waterseal. No leak noted. Chest x-ray reveals small residual pneumothorax. Right basilar pleural parenchymal opacity is stable. Working well with the incentive spirometer. Remains on Unasyn. The patient is seen today 04/06/2020 in follow-up on the selective care unit. She is currently sitting up in a chair at the bedside. Awake and alert in no acute distress. No worsening shortness of breath cough or congestion. Right- sided chest tube remains in place. Small leak. Continue to waterseal. Chest x-ray shows tiny right lateral basilar pneumothorax. Patchy bibasilar atelectasis. No significant change from previous. She is maintaining good O2 saturations in the 90s on room air. She's been afebrile for 24 hours. Hemodynamically stable. White count 9.1. Hemoglobin 9.1. Creatinine 0.53. Remains on Unasyn. Objective - Vital Signs Vital signs: Vital Signs Temp 98.9 F 04/06/20 08:22 Pulse 83 04/06/20 08:22 Resp 16 04/06/20 08:22 BP 125/68 04/06/20 08:22 Pulse Ox 94 L 04/06/20 08:22 Intake & Output 04/05/20 04/06/20 04/06/20 18:59 06:59 18:59 Intake Total 580 50 Output Total 50 Balance 530 50 Weight 89.4 kg Intake: IV 480 0.9 480 Intake, IV Titration 100 50 Amount Ampicillin-Sulbactam 3 gm 100 50 In Sodium Chloride 0.9% 100 ml @ 200 mls/hr IVPB Q6H [facility] Rx#:[id number] Output: Chest Tube Drainage 50 Chest Tube Right Lateral 50 Chest Other: Voiding Method Toilet Toilet Toilet # Voids 1 - Exam GENERAL EXAM: Alert, pleasant 59-year-old female patient, room air, O2 saturation 94%, comfortable in no apparent distress. HEAD: Normocephalic. EYES: Normal reaction of pupils, equal size. NOSE: Clear with pink turbinates. THROAT: No erythema or exudates. NECK: No masses, no JVD. CHEST: No chest wall deformity. Right-sided chest tube remains in place to waterseal. Minimal leak. LUNGS: Equal air entry with crackles, diminished in the right base. CVS: S1 and S2 normal with no audible murmur, regular rhythm. ABDOMEN: No hepatosplenomegaly, normal bowel sounds, no guarding or rigidity. SPINE: No scoliosis or deformity SKIN: No rashes CENTRAL NERVOUS SYSTEM: No focal deficits, tone is normal in all 4 extremities. EXTREMITIES: There is no peripheral edema. No clubbing, no cyanosis. Periphera l pulses are intact. - Labs CBC & Chem 7: 04/06/20 05:22 04/06/20 05:22 Labs: Abnormal Lab Results - Last 24 Hours (Table) 04/06/20 04/06/20 Range/Units 05:22 05:22 RBC 3.17 L (3.80-5.40) m/uL Hgb 9.1 L (11.4-16.0) gm/dL Hct 29.0 L (34.0-46.0) % Glucose 103 H (74-99) mg/dL Calcium 8.2 L (8.4-10.2) mg/dL Microbiology - Last 24 Hours (Table) 04/03/20 21:44 Blood Culture - Preliminary Blood No Growth after 48 hours 04/01/20 13:45 Anaerobic Culture - Final Pleural Fluid 04/01/20 13:45 Gram Stain - Final Pleural Fluid Body Fluid Culture - Final 04/04/20 16:45 Acid Fast Bacilli Smear - Final Pleural Fluid Acid Fast Bacilli Culture - Preliminary 04/04/20 16:45 Gram Stain - Preliminary Pleural Fluid Tissue Culture - Preliminary Assessment and Plan Assessment: Febrile illness secondary to right lower lobe consolidation, suspect community- acquired pneumonia with possible abscess versus aspiration. Initial CoVID screen in the outpatient setting reported as negative. Follow-up Covid screen from ER 03/28/2020 is negative, urine legionella antigen negative. Follow-up CAT scan revealed small to moderate-sized non-simple right pleural fluid collection re demonstrated with 2 air fluid levels noted in the posterior lower pleural space. There is associated right lower lobe atelectasis and/or limited consolidation. She remains on Unasyn. Thoracentesis cytology positive for pyothorax characterized by reactive mesothelial cells and abundant acute inflammatory cells. Right-sided VATS procedure with decortication performed yesterday 04/04/2020. Postoperative day #2. Joint pain, fatigue, weakness secondary to above History of skin cancer Lifelong nonsmoker Plan: The patient was seen and evaluated by Dr. Thao Chest x-ray and labs reviewed Right-sided chest tube in place to waterseal, minimal leak She remains on Unasyn Working well with the incentive spirometer Increase her activity as tolerated Chest tube to be removed per CT recommendations We will continue to follow and make further recommendations based on her clinical status I, the cosigning physician, performed a history & physical examination of the patient. Lungs sounds with few crackles, diminished in the right lung base. Maintaining good O2 saturations in the 90s on room air. I discussed the assessment and plan of care with my nurse practitioner, Yelena Benavidez. I attest to the above note as dictated by her.
--- NOTE | 2020-04-06 11:36 | P.PN ---
Subjective Progress Note Date: 04/06/20 Patient was seen and examined. No acute events overnight. Patient reports fever yesterday. She reports whole body aches and myalgias today relieved with Toradol. She denies any chest pain or palpitations. No nausea or vomiting. No fever or chills. Underwent decortication and VATS by CT surgery yesterday POD 2. 80 mL drained from right-sided chest tube overnight serosanguineous bloody fluid. Chest x-ray shows right-sided chest tube, small residual pneumothorax. Objective - Vital Signs Vital signs: Vital Signs Temp 98.9 F 04/06/20 08:22 Pulse 83 04/06/20 08:22 Resp 16 04/06/20 08:22 BP 125/68 04/06/20 08:22 Pulse Ox 94 L 04/06/20 08:22 Intake & Output 04/05/20 04/06/20 04/06/20 18:59 06:59 18:59 Intake Total 580 50 Output Total 50 Balance 530 50 Weight 89.4 kg Intake: IV 480 0.9 480 Intake, IV Titration 100 50 Amount Ampicillin-Sulbactam 3 gm 100 50 In Sodium Chloride 0.9% 100 ml @ 200 mls/hr IVPB Q6H [facility] Rx#:[id number] Output: Chest Tube Drainage 50 Chest Tube Right Lateral 50 Chest Other: Voiding Method Toilet Toilet Toilet # Voids 1 - Exam General: [non toxic], [mild distress], [appears at stated age] Derm: [warm], [dry] Head: [atraumatic], [normocephalic], [symmetric] Eyes: [EOMI], [no lid lag], [anicteric sclera] Mouth: [no lip lesion], [mucus membranes moist] Cardiovascular: [S1S2 reg], [no murmur], [positive posterior tibial pulse bilateral], Lungs: [Decreased breath sounds on the right with improved aeration than admission], [rhonchi over the right base] , [no accessory muscle use], chest tube in place with 80 mL bloody discharge to waterseal Abdominal: [soft], [ nontender to palpation], [no guarding], [no appreciable organomegaly] Ext: [no gross muscle atrophy], [no edema], [no contractures] Neuro: [no focal neuro deficits] Psych: [Alert], [oriented], [appropriate affect] - Labs CBC & Chem 7: 04/06/20 05:22 04/06/20 05:22 Labs: Abnormal Lab Results - Last 24 Hours (Table) 04/06/20 04/06/20 Range/Units 05:22 05:22 RBC 3.17 L (3.80-5.40) m/uL Hgb 9.1 L (11.4-16.0) gm/dL Hct 29.0 L (34.0-46.0) % Glucose 103 H (74-99) mg/dL Calcium 8.2 L (8.4-10.2) mg/dL Microbiology - Last 24 Hours (Table) 04/03/20 21:44 Blood Culture - Preliminary Blood No Growth after 48 hours 04/01/20 13:45 Anaerobic Culture - Final Pleural Fluid 04/01/20 13:45 Gram Stain - Final Pleural Fluid Body Fluid Culture - Final 04/04/20 16:45 Acid Fast Bacilli Smear - Final Pleural Fluid Acid Fast Bacilli Culture - Preliminary 04/04/20 16:45 Gram Stain - Preliminary Pleural Fluid Tissue Culture - Preliminary Assessment and Plan Assessment: Pneumonia with probable pulmonary abscess and sepsis -DC IVF and encourage hydration by mouth -ID recs: Vanco and Unasyn -CT surgery recs: -POD 2 VATS and decortication -Plans to remove chest tube tomorrow -Cultures are pending -COVID testing negative in outpatient setting -Pulmonary hygiene -s/p thoracentesis -Exudative -Culture Negative so far -Sputum culture shows rare PMN leukocytes, many gram-negative bacilli, many gram-positive cocci, few gram-negative cocci, rare budding yeast -Follow chest x-ray until clear Acute blood loss anemia -Hemoglobin 9.1 -Expected results of surgery -Transfuse if hemoglobin less than 7 -Repeat CBC tomorrow morning Pleuritic chest pain secondary to abscess -Pain control -Trial of tramadol, Toradol -Add Valium as a muscle relaxer Liver hemangioma - outpatient follow-up Thrombocytosis, resolved [Patient admitted for pneumonia with probable abscess. On IV antibiotics. Infectious disease and pulmonology on board. Cultures negative so far but pen ding. POD 2 VATS and decortication by CT surgery. Will likely need PICC line for IV antibiotics at home. Likely DC in 1-2 days.]
--- NOTE | 2020-04-06 23:35 | PN ---
PROGRESS NOTE DATE OF SERVICE: 04/06/2020 REASON FOR FOLLOWUP: Right-sided pneumonia, parapneumonic effusion. INTERVAL HISTORY: The patient is currently afebrile. The patient is breathing comfortably. The patient denies having any chest pain; however, overall cough has improved. No nausea, no vomiting. No abdominal pain and no diarrhea. PHYSICAL EXAMINATION: Blood pressure 117/65 with a pulse of 87, temperature 98.6. She is 97% on room air. General description is a middle-aged female lying in bed in no distress. RESPIRATORY SYSTEM: Unlabored breathing, decreased breath sounds at the bases. No wheeze. HEART: S1, S2. Regular rate and rhythm. ABDOMEN: Soft, no tenderness. LABS: Hemoglobin 9.1, white count 9.1, BUN of 8, creatinine 0.53. DIAGNOSTIC IMPRESSION AND PLAN: Patient with right-sided pneumonia, parapneumonic effusion, status post VATS procedure. The patient white count normalized. Fever has resolved and culture negative for resistant pathogen. Plan will be to finish therapy with IV Rocephin 2 grams daily for 2 weeks in outpatient setting and close outpatient followup. MMODL / IJN: [id number] / MTDD
[2020-04-07] MEDS: ACETAMINOPHEN TAB 500 MG TAB PO PRN (00:22)
[2020-04-07] MEDS: KETOROLAC 15 MG/ML 1 ML VIAL IVP SCH ×4 (00:22→17:26)
[2020-04-07] MEDS: HEPARIN SODIUM,PORCINE 5,000 UNIT/ML 1 ML VIAL SQ SCH ×3 (00:24→17:26)
[2020-04-07] MEDS: AMPICILLIN-SULBACTAM 3 GM in SODIUM CHLORIDE 0.9% 100 ML IVPB SCH ×2 (02:08→08:59)
--- NOTE | 2020-04-07 08:34 | XR ---
EXAMINATION TYPE: XR chest 2V DATE OF EXAM: 04/07/2020 CLINICAL HISTORY: Postoperative right VATS TECHNIQUE: Frontal and lateral views of the chest are obtained. COMPARISON: 04/06/[address] chest 04/02/2020. FINDINGS: Redemonstrated right-sided chest tube with distal tip over the right apex. The cardiomedia stinal silhouette is within normal limits for size. Pulmonary vasculature is normal. There is improve d aeration of the bilateral lung bases. Persistent right pleural effusion. A tiny focus of right late ral basilar air likely represents the small air-fluid levels seen on 04/02/[address] comparison. N o displaced osseous fracture. IMPRESSION: 1. Right-sided chest tube and right pleural effusion redemonstrated. Tiny lateral right basilar focus of air likely represents persistent hydropneumothorax as seen on 04/02/2020 CT comparison. 2. Improved aeration of the bilateral lung bases versus 04/06/2020.
[2020-04-07] MEDS: DEXTROSE 5%-0.45% NACL 1,000 ML IV SCH (09:40)
--- NOTE | 2020-04-07 10:29 | P.PN ---
Subjective Progress Note Date: 04/07/20 Principal diagnosis: Right lower lobe pneumonia, right loculated pleural collection consistent with hemothorax status post right pleural drainage, pulmonary abcess with a past medi magan history significant for basal cell carcinoma, status post resection to her face, difficulty swallowing, sleep apnea, depression, anxiety and daily marijuana use. POD #3 right thoracoscopy, total decortication right lung. POD #6 right thoracentesis performed by interventional radiology with subsequent loculated fluid. The patient is seen in follow-up today 04/07/2020 at her bedside on the cardiac stepdown unit. Currently she is sitting up to the bedside chair, is awake alert and oriented 3, and is in no acute distress. Oxygen saturations are 97% on room air and she is achieving 1500 mL on her incentive spirometry today. She has been ambulating in the cardiac stepdown unit hallway with minimal assistance. Culture results from her right VATS procedure remained to show no growth after 48 hours, she continues on Unasyn for antibiotic coverage managed by infectious disease. Right pleural chest tube remains in place to water seal. No air leak is present. 10 mL of thin serosanguineous drainage in the last 24 hours. Denies any complaints of shortness of breath or pain, and states that she feels much improved today. She does report that she continues to have a productive cough with scant amount of tejeda colored sputum. She has been afebrile the last 24 hours. Remote telemetry showing normal sinus rhythm heart rate 75. Objective - Vital Signs Vital signs: Vital Signs Temp 98.6 F 04/06/20 19:56 Pulse 87 04/06/20 19:56 Resp 16 04/06/20 19:56 BP 117/65 04/06/20 19:56 Pulse Ox 97 04/06/20 19:56 Intake & Output 04/06/20 04/07/20 04/07/20 18:59 06:59 18:59 Intake Total 502 230 Output Total 10 700 Balance 492 -470 Weight 89.2 kg Intake: Intake, IV Titration 50 Amount Ampicillin-Sulbactam 3 gm 50 In Sodium Chloride 0.9% 100 ml @ 200 mls/hr IVPB Q6H [facility] Rx#:[id number] Oral 452 230 Output: Chest Tube Drainage 10 0 Chest Tube Right Lateral 10 0 Chest Urine 700 Other: Voiding Method Toilet Toilet # Voids 1 2 - Constitutional General appearance: Present: cooperative, no acute distress, obese - EENT Eyes: Present: PERRLA, normal appearance. Absent: scleral icterus ENT: Present: hearing grossly normal - Neck Details: Neck supple, no JVD. No lymphadenopathy. - Respiratory Details: Lungs sounds are essentially clear throughout, diminished to her right lower lobe with few scattered crackles. No wheezes or rhonchi present. Respirations are symmetrical and nonlabored. Oxygen saturation 97% on room air. Achieving 1500 mL on her incentive spirometry. Right pleural chest tube in place to water seal. No air leak is present. Draining thin serosanguineous drainage with 10 mL output in the last 24 hours. - Cardiovascular Details: Regular rhythm and rate. S1 and S2 present, negative for S3, gallop or murmur. No edema present. Knee-high sequential compression devices in place to bilateral lower extremities. - Gastrointestinal Gastrointestinal Comment(s): Abdomen is soft, nontender and nondistended. Active bowel sounds present in all 4 quadrants. No guarding or rigidity. No organomegaly appreciated. Tolerating oral intake. Bowel movement yesterday 04/06/2020. - Genitourinary Genitourinary Comment(s): Continues to void. - Integumentary Integumentary Comment(s): Skin is warm and dry. No clubbing or cyanosis is present. Right thoracoscopy chest incisions clean, dry and approximated. No drainage or redness is present. Gauze dressing is clean and dry. - Neurologic Neurologic: Present: CNII-XII intact - Musculoskeletal Musculoskeletal: Present: gait normal, strength equal bilaterally - Psychiatric Psychiatric: Present: A&O x's 3, appropriate affect, intact judgment & insight - Allied health notes Allied health notes reviewed: nursing - Labs CBC & Chem 7: 04/06/20 05:22 04/06/20 05:22 Labs: Microbiology - Last 24 Hours (Table) 04/03/20 21:44 Blood Culture - Preliminary Blood No Growth after 72 hours 04/04/20 16:45 Anaerobic Culture - Preliminary Pleural Fluid 04/04/20 16:45 Gram Stain - Preliminary Pleural Fluid Tissue Culture - Preliminary - Imaging and Cardiology Chest x-ray: image reviewed Assessment and Plan Assessment: 1. Right lower lobe pneumonia, right loculated pleural fluid collection consistent with hemothorax, status post right thoracoscopy, total decortication right lung. 2. Fever, secondary to right lower lobe consolidation, suspect community- acquired pneumonia with possible abscess versus aspiration, status post right thoracoscopy, total decortication right lung 3. Weakness with, joint pain and body aches 4. History of basal cell carcinoma removed from her face in August 2018 5. Daily marijuana use 6. History of aspiration, difficulty swallowing Plan: 1. We will remove the right pleural chest tube. 2. Continue antibiotic management per infectious disease. 3. Encourage use of her incentive spirometry 10 times every hour while awake. 4. Encourage frequent ambulation, out of bed for all meals. 5. Management of other comoribidites per primary care. 6. Pain management per current when necessary orders. 7. GI and DVT prophylaxis. 8. Cultures showing no growth after 48 hours, continue to follow. 9. More recommendations to follow based on patient's clinical course. Time with Patient: Greater than 30
--- NOTE | 2020-04-07 12:28 | P.PN ---
Subjective Progress Note Date: 04/07/20 Principal diagnosis: Right lower lobe community-acquired pneumonia This is a very pleasant 59-year-old female patient was a history of skin cancer. [place] [facility] [place] was [place]. After her return home she developed joint pain headache fever as high as 103. She had some right sided chest discomfort. She thought maybe she had coving was checked in the outpatient setting that was reported as negative. She presented here to the emergency room last evening with ongoing symptoms. Computed tomography scan revealed consolidation at the right posterior lung base with rounded fluid density suspicious for pneumonia with lung abscess and small right pleural effusion. She is seen today in consultation on the selective care unit. She is up in a chair at the bedside. Awake and alert in no acute distress. She did have a temperature earlier today of 101.1. She is maintaining O2 saturations in the mid 90s on room air. She's been hemodynamically stable. White count 14.2. Hemoglobin 11.4. Sodium 137. Potassium 4.1. Creatinine 0.60. She's been initiated on Unasyn and vancomycin. The patient is seen today 03/30/2020 in follow-up on the selective care unit. She is currently sitting up in a chair at the bedside. Awake and alert in no acute distress. She is maintaining good O2 saturations in the mid 90s on room air. She continues to spike fevers currently 100.1. She is slightly tachycardic. No tachypnea. Blood culture reveals no growth to date. White count 11.4. Hemoglobin 10.6. Sodium 136. Potassium 3.6. Creatinine 0.51. Pro-calcitonin 0.10. C-reactive protein 47.3. LDH 500. Chest x-ray shows worsening airspace disease occupying the right middle and lower lung. She remains on Unasyn and vancomycin. ID is on the case. On 03/31/2020 patient seen in follow-up on selective care unit. She is resting in the recliner, in no acute distress, still having some right lower chest and back discomfort, though somewhat improved. Breathing improved, room air pulse ox is 93%, hemodynamically stable, still having some low-grade fevers, with a T- max of 100.7F in the last 24 hours. Today's chest x-ray has been reviewed showing continued moderate right pleural effusion with adjacent atelectasis and consolidation extending up to the mid lung level, with minimally improved aeration. Right chest ultrasound showed loculated right-sided pleural effusion, with right pleural effusion pocket size of 4.7 cm. Patient on combination of Unasyn and vancomycin. Today's labs 7 reviewed, showing white blood cell count of 11.4, hemoglobin of 10.6, sodium of 136, resting electrolytes are within normal limits, BUN of 5 creatinine 0.51. Patient is receiving morphine for chest pain control. No hemoptysis On 04/03/2020 patient seen in follow-up on selective care unit, she sits up in the recliner, she states her breathing is about the same, does not appear to be in any respiratory distress, but she states that right-sided chest discomfort and back discomfort have completely resolved, and overall she is feeling much better. Patient is status post right-sided ultrasound-guided thoracentesis with removal of 60 mL of pleural fluid which came back exudative, and pleural fluid cultures showed polymicrobial growth, Gram stain showed many gram-negative bacilli, many gram-positive cocci, few gram negative cocci and rare budding yeast, final culture is pending. Patient remains on combination of Unasyn and vancomycin. She still having temperature elevation, with a T-max of 100.8F in the last 24 hours. Pleural fluid cytology is pending. CT chest from yesterday showed small to borderline moderate size non-simple right pleural fluid collection with 2 air fluid levels noted in posterior lower pleural space, there is associated right lower lung atelectasis. On 04/07/2020 patient seen in follow-up on selective care unit. She is sitting up in a recliner, in no acute distress, pulse ox of 94%, no altered mentation, hemodynamics are stable, no fever or chills, breathing seems to be comfortable, right-sided chest tube remains in place, with 100 mL of serosanguineous output in the last 24 hours, chest distant waterseal with no evidence of air leak. This morning's chest x-ray shows tiny lateral right basilar focus of air, representing persistent hydropneumothorax, and improved aeration of the bilateral lung bases compared to yesterday's chest x-ray. Pleural fluid Cultures were negative, right lung tissue cultures have shown no PMNs, no organisms, no growth at the 48 hour sigrid. No new labs today, no acute events overnight. Possibility of CT surgery discontinue the chest tube today. Objective - Vital Signs Vital signs: Vital Signs Temp 98.1 F 04/07/20 08:51 Pulse 79 04/07/20 08:51 Resp 18 04/07/20 08:51 BP 111/61 04/07/20 08:51 Pulse Ox 94 L 04/07/20 08:51 Intake & Output 04/06/20 04/07/20 04/07/20 18:59 06:59 18:59 Intake Total 502 230 100 Output Total 10 700 Balance 492 -470 100 Weight 89.2 kg Intake: Intake, IV Titration 50 Amount Ampicillin-Sulbactam 3 gm 50 In Sodium Chloride 0.9% 100 ml @ 200 mls/hr IVPB Q6H [facility] Rx#:[id number] Oral 452 230 100 Output: Chest Tube Drainage 10 0 Chest Tube Right Lateral 10 0 Chest Urine 700 Other: Voiding Method Toilet Toilet # Voids 1 2 2 # Bowel Movements 0 - Exam GENERAL EXAM: Alert, very pleasant, 59-year-old white female on room air, with a pulse ox of 94% comfortable in no apparent distress. HEAD: Normocephalic/atraumatic. EYES: Normal reaction of pupils, equal size. Conjunctiva pink, sclera white. NOSE: Clear with pink turbinates. THROAT: No erythema or exudates. NECK: No masses, no JVD, no thyroid enlargement, no adenopathy. CHEST: No chest wall deformity. Symmetrical expansion. Right-sided chest tube is in place, to waterseal, no evidence of air leak, with Sero sang output in the Pleur-evac LUNGS: Equal air entry with diminished breath sounds over right lower base, with crackles at bilateral bases, wheeze, rhonchi or dullness. CVS: Regular rate and rhythm, normal S1 and S2, no gallops, no murmurs, no rubs ABDOMEN: Soft, nontender. No hepatosplenomegaly, normal bowel sounds, no guarding or rigidity. EXTREMITIES: No clubbing, no edema, no cyanosis, 2+ pulses and upper and lower extremities. MUSCULOSKELETAL: Muscle strength and tone normal. SPINE: No scoliosis or deformity SKIN: No rashes CENTRAL NERVOUS SYSTEM: Alert and oriented -3. No focal deficits, tone is normal in all 4 extremities. PSYCHIATRIC: Alert and oriented -3. Appropriate affect. Intact judgment and insight. - Labs CBC & Chem 7: 04/06/20 05:22 04/06/20 05:22 Labs: Microbiology - Last 24 Hours (Table) 04/03/20 21:44 Blood Culture - Preliminary Blood No Growth after 72 hours 04/04/20 16:45 Anaerobic Culture - Preliminary Pleural Fluid 04/04/20 16:45 Gram Stain - Preliminary Pleural Fluid Tissue Culture - Preliminary Assessment and Plan Plan: #1. Febrile illness secondary to right lower lobe consolidation, suspect community-acquired pneumonia with possible abscess versus aspiration. Initial CoVID screen in the outpatient setting reported as negative. Follow-up Covid screen from ER 03/28/2020 not detected #2. Right-sided parapneumonic effusion, loculated, status post ultrasound- guided thoracentesis on 04/01/2020, with exudative fluid, pleural fluid cultures are pending, this was done for diagnostic purposes, 60 mL of fluid was removed by interventional radiology. Cytology is pending. Follow-up CT chest revealed non-simple, small to moderate loculated pleural effusions, and patient will need surgical intervention with VATS/decortication #3. Joint pain, fatigue, weakness secondary to above #4. History of skin cancer #5. Lifelong nonsmoker Plan: Continue current antibiotics, clinically patient states she is feeling better, right-sided chest pain has completely resolved, she still having fever intermittently, awaiting results of the pleural fluid cultures, follow-up CT chest yesterday showed loculated non-simple right-sided pleural fluid collections. Discussed case with CT surgery on the case, was planned and on surgical intervention, with VATS and decortication possibly tomorrow I performed a history & physical examination of the patient and discussed their management with my nurse practitioner, Rebeca Blood. I reviewed the nurse practitioner's note and agree with the documented findings and plan of care. Lung sounds are positive for diminished breath sounds. The findings and the impression was discussed with the patient. I attest to the documentation by the nurse practitioner.
--- NOTE | 2020-04-07 12:40 | XR ---
EXAMINATION TYPE: XR chest 1V portable DATE OF EXAM: 04/07/2020 CLINICAL HISTORY: Post chest tube removal TECHNIQUE: Portable upright view of the chest obtained COMPARISON: 04/07/2020 6:37 AM chest radiograph FINDINGS: Interval removal of right-sided chest tube. Unchanged right pleural effusion with tiny rig ht lateral basilar focus of air, likely hydropneumothorax. Improved aeration of the right lung base v ersus 6:37 AM comparison. No new pneumothorax status post chest tube removal. The cardiomediastinal s ilhouette is within normal limits for size. Pulmonary vasculature is normal. No displaced osseous fra cture. IMPRESSION: Unchanged right pleural effusion with tiny right basilar focus of air, likely hydropneumothorax. No n ew or increased pneumothorax seen status post right chest tube removal.
--- NOTE | 2020-04-07 13:12 | P.PN ---
Subjective Progress Note Date: 04/07/20 Patient was seen and examined. No acute events overnight. Patient has had no documented fever over the past 24 hours. She denies any chest pain or palpitations. No nausea or vomiting. No fever or chills. Underwent decortication and VATS by CT surgery yesterday POD 3. 100 mL drained from right-sided chest tube overnight serosanguineous bloody fluid. Chest x-ray shows right-sided chest tube, small residual pneumothorax. Objective - Vital Signs Vital signs: Vital Signs Temp 98.1 F 04/07/20 08:51 Pulse 79 04/07/20 08:51 Resp 18 04/07/20 12:00 BP 111/61 04/07/20 08:51 Pulse Ox 94 L 04/07/20 08:51 Intake & Output 04/06/20 04/07/20 04/07/20 18:59 06:59 18:59 Intake Total 502 230 100 Output Total 10 700 Balance 492 -470 100 Weight 89.2 kg Intake: Intake, IV Titration 50 Amount Ampicillin-Sulbactam 3 gm 50 In Sodium Chloride 0.9% 100 ml @ 200 mls/hr IVPB Q6H [facility] Rx#:[id number] Oral 452 230 100 Output: Chest Tube Drainage 10 0 Chest Tube Right Lateral 10 0 Chest Urine 700 Other: Voiding Method Toilet Toilet # Voids 1 2 2 # Bowel Movements 0 - Exam General: [non toxic], [mild distress], [appears at stated age] Derm: [warm], [dry] Head: [atraumatic], [normocephalic], [symmetric] Eyes: [EOMI], [no lid lag], [anicteric sclera] Mouth: [no lip lesion], [mucus membranes moist] Cardiovascular: [S1S2 reg], [no murmur], [positive posterior tibial pulse bilateral], Lungs: [Decreased breath sounds on the right with improved aeration than admission], [rhonchi over the right base] , [no accessory muscle use] Abdominal: [soft], [ nontender to palpation], [no guarding], [no appreciable organomegaly] Ext: [no gross muscle atrophy], [no edema], [no contractures] Neuro: [no focal neuro deficits] Psych: [Alert], [oriented], [appropriate affect] - Labs CBC & Chem 7: 04/06/20 05:22 04/06/20 05:22 Labs: Microbiology - Last 24 Hours (Table) 04/03/20 21:44 Blood Culture - Preliminary Blood No Growth after 72 hours 04/04/20 16:45 Anaerobic Culture - Preliminary Pleural Fluid 04/04/20 16:45 Gram Stain - Preliminary Pleural Fluid Tissue Culture - Preliminary Assessment and Plan Assessment: Pneumonia with probable pulmonary abscess and sepsis -DC IVF and encourage hydration by mouth -ID recs: Lee and Aggiesyn -CT surgery recs: -POD 3 VATS and decortication -Chest tube removed today -Cultures are pending -COVID testing negative in outpatient setting -Pulmonary hygiene -s/p thoracentesis -Exudative -Culture Negative so far -Sputum culture shows rare PMN leukocytes, many gram-negative bacilli, many gram-positive cocci, few gram-negative cocci, rare budding yeast -Follow chest x-ray until clear Acute blood loss anemia -Hemoglobin 9.1 -Expected results of surgery -Transfuse if hemoglobin less than 7 -Repeat CBC tomorrow morning Pleuritic chest pain secondary to abscess -Pain control -Trial of tramadol, Toradol -Add Valium as a muscle relaxer Liver hemangioma - outpatient follow-up Thrombocytosis, resolved [Patient admitted for pneumonia with probable abscess. On IV antibiotics. Infectious disease and pulmonology on board. Cultures negative so far but pending. POD 3 VATS and decortication by CT surgery. Will likely need PICC line for IV antibiotics at home. Will discuss with CT surgery and ID regarding discharge planning.]
--- NOTE | 2020-04-07 14:30 | PN ---
PROGRESS NOTE DATE OF SERVICE: 04/07/2020 REASON FOR FOLLOWUP: Pneumonia and parapneumonic collection. INTERVAL HISTORY: Patient is currently afebrile, patient is breathing comfortably. The patient denies having any chest pain or shortness of breath. Minimal cough. No nausea. No abdominal pain, no diarrhea. PHYSICAL EXAMINATION: Blood pressure 110/61 with a pulse of 79, temperature 98.1. She is 94% on room air. General description is a middle-aged female, up in the bed in no distress. RESPIRATORY SYSTEM: Unlabored breathing, decreased breath sounds in the bases. HEART: S1, S2. Regular rate and rhythm. ABDOMEN: Soft, no tenderness. LABS: Hemoglobin 9.5, white count of 9.1, BUN of 8, creatinine 0.57. DIAGNOSTIC IMPRESSION AND PLAN: Patient with right-sided pneumonia with parapneumonic effusion, status post VATS procedure. Culture has been negative for resistant pathogen. Will try to arrange for a midline and new course of IV Rocephin 2 g daily and close outpatient followup. MMODL / IJN: [id number] /
[2020-04-08] MEDS: KETOROLAC 15 MG/ML 1 ML VIAL IVP SCH ×3 (00:55→12:04)
[2020-04-08] MEDS: HEPARIN SODIUM,PORCINE 5,000 UNIT/ML 1 ML VIAL SQ SCH ×2 (00:55→10:20)
[2020-04-08] MEDS ORDERED: ONDANSETRON 4 MG/2 ML VIAL IVP PRN (09:19)
[2020-04-08] MEDS ORDERED: NALOXONE 0.4 MG/ML 1 ML VIAL IV PRN (09:19)
[2020-04-08 09:39] VITALS: BP 99/60; PULSE 78; RESP 18; TEMP 98.3
[2020-04-08 09:42] LABS: HCT 34.1 % (34.0-46.0); HGB 10.9 gm/dL (11.4-16.0); MCHC 31.8 g/dL (31.0-37.0); MCV 91.1 fL (80.0-100.0); Mean Platelet Volume 6.9; Platelet Count 522 k/uL (150-450); RBC 3.75 m/uL (3.80-5.40); RDW 12.2 % (11.5-15.5); WBC 7.6 k/uL (3.8-10.6)
[2020-04-08 09:50] LABS: Anion Gap 8 mmol/L; Blood Urea Nitrogen 13 mg/dL (7-17); Calcium 9.3 mg/dL (8.4-10.2); Carbon Dioxide 26 mmol/L (22-30); Chloride 103 mmol/L (98-107); Glucose 128 mg/dL (74-99); Potassium 4.2 mmol/L (3.5-5.1); Sodium 137 mmol/L (137-145)
[2020-04-08 09:51] LABS: African American GFR (CKD) >90 (>60 ml/min/1.73 sqM); Non-African American GFR(CKD) >90 (>60 ml/min/1.73 sqM)
--- NOTE | 2020-04-08 12:08 | P.PN ---
Subjective Progress Note Date: 04/08/20 Principal diagnosis: Right lower lobe community-acquired pneumonia This is a very pleasant 59-year-old female patient was a history of skin cancer. [place] had recently [place] [facility] and [place] was [place]. After her return home she developed joint pain headache fever as high as 103. She had some right sided chest discomfort. She thought maybe she had coving was checked in the outpatient setting that was reported as negative. She presented here to the emergency room last evening with ongoing symptoms. Computed tomography scan revealed consolidation at the right posterior lung base with rounded fluid density suspicious for pneumonia with lung abscess and small right pleural effusion. She is seen today in consultation on the selective care unit. She is up in a chair at the bedside. Awake and alert in no acute distress. She did have a temperature earlier today of 101.1. She is maintaining O2 saturations in the mid 90s on room air. She's been hemodynamically stable. White count 14.2. Hemoglobin 11.4. Sodium 137. Potassium 4.1. Creatinine 0.60. She's been initiated on Unasyn and vancomycin. The patient is seen today 03/30/2020 in follow-up on the selective care unit. She is currently sitting up in a chair at the bedside. Awake and alert in no acute distress. She is maintaining good O2 saturations in the mid 90s on room air. She continues to spike fevers currently 100.1. She is slightly tachycardic. No tachypnea. Blood culture reveals no growth to date. White count 11.4. Hemoglobin 10.6. Sodium 136. Potassium 3.6. Creatinine 0.51. Pro-calcitonin 0.10. C-reactive protein 47.3. LDH 500. Chest x-ray shows worsening airspace disease occupying the right middle and lower lung. She remains on Unasyn and vancomycin. ID is on the case. On 03/31/2020 patient seen in follow-up on selective care unit. She is resting in the recliner, in no acute distress, still having some right lower chest and back discomfort, though somewhat improved. Breathing improved, room air pulse ox is 93%, hemodynamically stable, still having some low-grade fevers, with a T- max of 100.7F in the last 24 hours. Today's chest x-ray has been reviewed showing continued moderate right pleural effusion with adjacent atelectasis and consolidation extending up to the mid lung level, with minimally improved aeration. Right chest ultrasound showed loculated right-sided pleural effusion, with right pleural effusion pocket size of 4.7 cm. Patient on combination of Unasyn and vancomycin. Today's labs 7 reviewed, showing white blood cell count of 11.4, hemoglobin of 10.6, sodium of 136, resting electrolytes are within normal limits, BUN of 5 creatinine 0.51. Patient is receiving morphine for chest pain control. No hemoptysis On 04/03/2020 patient seen in follow-up on selective care unit, she sits up in the recliner, she states her breathing is about the same, does not appear to be in any respiratory distress, but she states that right-sided chest discomfort and back discomfort have completely resolved, and overall she is feeling much better. Patient is status post right-sided ultrasound-guided thoracentesis with removal of 60 mL of pleural fluid which came back exudative, and pleural fluid cultures showed polymicrobial growth, Gram stain showed many gram-negative bacilli, many gram-positive cocci, few gram negative cocci and rare budding yeast, final culture is pending. Patient remains on combination of Unasyn and vancomycin. She still having temperature elevation, with a T-max of 100.8F in the last 24 hours. Pleural fluid cytology is pending. CT chest from yesterday showed small to borderline moderate size non-simple right pleural fluid collection with 2 air fluid levels noted in posterior lower pleural space, there is associated right lower lung atelectasis. On 04/07/2020 patient seen in follow-up on selective care unit. She is sitting up in a recliner, in no acute distress, pulse ox of 94%, no altered mentation, hemodynamics are stable, no fever or chills, breathing seems to be comfortable, right-sided chest tube remains in place, with 100 mL of serosanguineous output in the last 24 hours, chest distant waterseal with no evidence of air leak. This morning's chest x-ray shows tiny lateral right basilar focus of air, representing persistent hydropneumothorax, and improved aeration of the bilateral lung bases compared to yesterday's chest x-ray. Pleural fluid Cultures were negative, right lung tissue cultures have shown no PMNs, no organisms, no growth at the 48 hour sigrid. No new labs today, no acute events overnight. Possibility of CT surgery discontinue the chest tube today. On 04/08/2020 patient seen in follow-up on selective care unit, she is awake and alert, completely asymptomatic, no shortness of breath, she sits up in the recliner, denies any shortness of breath, room air pulse ox is 97%, her right- sided chest tube was discontinued yesterday, follow-up chest x-ray yesterday showed right pleural effusion with tiny right basilar focus failure, no increased pneumothorax status post right chest tube removal, lung sounds are clear, diminished at the right base, no rhonchi or wheezing, no hemoptysis, no chest pain. All cultures including blood and sputum and pleural fluid cultures have remained negative thus far. ID service is following, patient was initially on Unasyn and vancomycin, currently on ceftriaxone per ID service recommendations. Objective - Vital Signs Vital signs: Vital Signs Temp 98.3 F 04/08/20 08:00 Pulse 78 04/08/20 08:00 Resp 18 04/08/20 08:00 BP 99/60 04/08/20 08:00 Pulse Ox 95 04/08/20 08:00 Intake & Output 04/07/20 04/08/20 04/08/20 18:59 06:59 18:59 Intake Total 100 100 Balance 100 100 Weight 87.5 kg Intake: Oral 100 100 Other: Voiding Method Toilet Toilet # Voids 2 4 # Bowel Movements 0 0 - Exam GENERAL EXAM: Alert, very pleasant, 59-year-old white female on room air, with a pulse ox of 95% comfortable in no apparent distress. HEAD: Normocephalic/atraumatic. EYES: Normal reaction of pupils, equal size. Conjunctiva pink, sclera white. NOSE: Clear with pink turbinates. THROAT: No erythema or exudates. NECK: No masses, no JVD, no thyroid enlargement, no adenopathy. CHEST: No chest wall deformity. Symmetrical expansion. Interval removal of the right-sided chest tube LUNGS: Equal air entry with diminished breath sounds over right lower base, with crackles at bilateral bases, wheeze, rhonchi or dullness. CVS: Regular rate and rhythm, normal S1 and S2, no gallops, no murmurs, no rubs ABDOMEN: Soft, nontender. No hepatosplenomegaly, normal bowel sounds, no guarding or rigidity. EXTREMITIES: No clubbing, no edema, no cyanosis, 2+ pulses and upper and lower extremities. MUSCULOSKELETAL: Muscle strength and tone normal. SPINE: No scoliosis or deformity SKIN: No rashes CENTRAL NERVOUS SYSTEM: Alert and oriented -3. No focal deficits, tone is normal in all 4 extremities. PSYCHIATRIC: Alert and oriented -3. Appropriate affect. Intact judgment and insight. - Labs CBC & Chem 7: 04/08/20 09:16 04/08/20 09:16 Labs: Abnormal Lab Results - Last 24 Hours (Table) 04/08/20 04/08/20 Range/Units 09:16 09:16 RBC 3.75 L (3.80-5.40) m/uL Hgb 10.9 L (11.4-16.0) gm/dL Plt Count 522 H (150-450) k/uL Glucose 128 H (74-99) mg/dL Microbiology - Last 24 Hours (Table) 04/03/20 21:44 Blood Culture - Preliminary Blood No Growth after 96 hours 04/04/20 16:45 Gram Stain - Preliminary Pleural Fluid Tissue Culture - Preliminary Assessment and Plan Plan: #1. Febrile illness secondary to right lower lobe consolidation, suspect community-acquired pneumonia with possible abscess versus aspiration. Initial C oVID screen in the outpatient setting reported as negative. Follow-up Covid screen from ER 03/28/2020 not detected. The fever has resolved, patient was treated with broad-spectrum antibiotics initially, with combination of Unasyn and vancomycin, she is status post right-sided VATS and decortication, and all cultures have remained negative, currently antibiotics have been simplified down to Rocephin. #2. Right-sided parapneumonic effusion, loculated, status post ultrasound- guided thoracentesis on 04/01/2020, with exudative fluid, pleural fluid cultures are pending, this was done for diagnostic purposes, 60 mL of fluid was removed by interventional radiology. Cytology is pending. Follow-up CT chest revealed non-simple, small to moderate loculated pleural effusions, and patient will need surgical intervention with VATS/decortication #3. Joint pain, fatigue, weakness secondary to above #4. History of skin cancer #5. Lifelong nonsmoker Plan: Continue current medical treatment, patient is clinically stable, no pneumothorax following removal of the right-sided chest tube, all cultures remain negative, vital signs have remained stable, antibiotics per ID service recommendations. Anticipate discharge home today, will need outpatient follow- up with Dr. Thao in the office in 7-10 days. I performed a history & physical examination of the patient and discussed their management with my nurse practitioner, Rebeca Blood. I reviewed the nurse practitioner's note and agree with the documented findings and plan of care. Lung sounds are positive for diminished breath sounds. The findings and the impression was discussed with the patient. I attest to the documentation by the nurse practitioner. Time with Patient: Less than 30
--- NOTE | 2020-04-08 12:56 | P.DS ---
Providers Date of admission: 03/28/20 21:15 Expected date of discharge: 04/08/20 Attending physician: Kelsea Andrews MD Consults: 03/28/20 21:51 Consult Physician Stat Consulting Provider: Arie Barlow Consult Reason/Comments: sepsis, pneumonia possible lung abscess Do you want consulting provider notified?: Yes 03/29/20 08:21 Consult Physician Routine Consulting Provider: Yonas Kyle Consult Reason/Comments: Lung abscess vs emphyema Do you want consulting provider notified?: Yes 03/29/20 13:37 Consult Physician Routine Consulting Provider: Vinay Pak Consult Reason/Comments: Pulmonayr abscess Do you want consulting provider notified?: Yes Primary care physician: Stated None Hospital Course: The patient is a 59-year-old female with a PMH of obstructive sleep apnea who presented to the ED with complaints of gradually worsening shortness of breath, fever, malaise, pleuritic chest pain, and myalgias. The patient reports that her symptoms started on Thursday 03/22, after she returned from her [place]. She reports that the prior 3 days, she had been swimming in the [place] daily, and was in her usual state of health. Initially, she developed a mild sore throat followed by myalgias, progressive shortness of breath, pleuritic chest pain, nonproductive cough and low-grade fever. Her symptoms persisted and she attributed them to possibly having contracted Covid for which she was tested on Tuesday, though had not received the results yet. Her fever worsened 202 today at which time she decided to come to emergency room. She reports no prior history of pneumonias or lung infections. She reports that occasionally she aspirates on food, both liquids and solids, for which she has never been evaluated. Denied IV drug use or smoking. Denied nausea, vomiting, diarrhea, loss of smell or taste, or dysuria. She reports that all other members of the family are doing well and are asymptomatic. In the emergency room, a chest CTA revealed a right lower lobe consolidation with a possible lung abscess. CT abdomen and pelvis revealed hypodense liver lesion with follow-up ultrasound recommended. Patient was febrile with temperature 100.4, pulse 112, BP 116/74, and saturating 94% on room air. Laboratory evaluation revealed a WBC of 13.7, CRP 47.3, d-dimer 0.56, troponin less than 0.012, with LDH 500. Infectious disease, pulmonology and cardiothoracic surgery was consulted. She was initially started on vancomycin and Unasyn. Her coronavirus testing was negative. Her pleuritic chest pain was treated with Toradol and Valium as needed. She continued to spike fevers initially during this admission. Repeat chest x-ray showed continued moderate right pleural effusion with atelectasis and right pleural effusion pocket of 4.7 cm. Thoracentesis was attempted by interventional radiology with removal of 60 mL on April 03. Analysis of the pleural fluid came back exudative with culture showing polymicrobial growth. CT chest was ordered which showed small to moderate sized nonsegmental right pleural fluid collection with 2 air-fluid levels noted in the posterior lower pleural space. CT surgery recommended VATS and decortication which she underwent on April 04. Right-sided chest tube was placed that drained bloody serosanguineous fluid. Chest tube was discontinued on April 07. Her antibiotics were transitioned to Rocephin by infectious disease. Cultures remained negative at the time of discharge. Infectious disease recommended IV antibiotics and midline was obtained. Patient was seen and examined. No acute events overnight. Got midline placed yesterday. She denies any chest pain, shortness breath or palpitations. No nausea or vomiting. No fever or chills. Wanting to go home. General: [non toxic], [mild distress], [appears at stated age] Derm: [warm], [dry] Head: [atraumatic], [normocephalic], [symmetric] Eyes: [EOMI], [no lid lag], [anicteric sclera] Mouth: [no lip lesion], [mucus membranes moist] Cardiovascular: [S1S2 reg], [no murmur], [positive posterior tibial pulse bilateral], Lungs: [Decreased breath sounds on the right with improved aeration than admission], [rhonchi over the right base] , [no accessory muscle use] Abdominal: [soft], [ nontender to palpation], [no guarding], [no appreciable organomegaly] Ext: [no gross muscle atrophy], [no edema], [no contractures] Neuro: [no focal neuro deficits] Psych: [Alert], [oriented], [appropriate affect] Pneumonia with probable pulmonary abscess and sepsis -DC IVF and encourage hydration by mouth -ID recs: Vanco and Unasyn -CT surgery recs: -POD 4 VATS and decortication -Chest tube removed yesterday -Cultures are pending -COVID testing negative in outpatient setting -Pulmonary hygiene -s/p thoracentesis -Exudative -Culture Negative so far -Sputum culture shows rare PMN leukocytes, many gram-negative bacilli, many gram-positive cocci, few gram-negative cocci, rare budding yeast -Follow chest x-ray until clear Acute blood loss anemia -Hemoglobin 10.9 -Expected results of surgery -Transfuse if hemoglobin less than 7 -Repeat CBC tomorrow morning Pleuritic chest pain secondary to abscess -Pain control -Trial of tramadol, Toradol -Add Valium as a muscle relaxer Liver hemangioma - outpatient follow-up Thrombocytosis, resolved [Patient admitted for pneumonia with probable abscess. On IV antibiotics. Infectious disease and pulmonology on board. Cultures negative so far but pending. POD 4 VATS and decortication by CT surgery. Infectious disease recommended 2 g Rocephin for 10 days at the time of discharge. Patient was not approved for IV antibiotics and infectious disease recommended cefuroxime 500 mg by mouth twice a day for 10 days. This complex discharge took over 45 minutes to complete.] Pertinent Studies: Chest x-ray, CT chest, CT abdomen and pelvis, chest ultrasound Procedures: Thoracentesis, VATS and decortication, right chest tube Patient Condition at Discharge: Stable Plan - Discharge Summary Discharge Rx Participant: No New Discharge Prescriptions: New traMADol HCl [Ultram] 50 mg PO TID PRN #30 tab PRN Reason: Moderate Pain diazePAM [Valium] 2 mg PO TID PRN #9 tab PRN Reason: Muscle Spasm Cefuroxime Axetil [Ceftin] 500 mg PO BID #20 tab Ketorolac [Toradol] 10 mg PO Q6HR #12 tab Discharge Medication List diazePAM [Valium] 2 mg PO TID PRN #9 tab 04/07/20 [Rx] traMADol HCl [Ultram] 50 mg PO TID PRN #30 tab 04/07/20 [Rx] Cefuroxime Axetil [Ceftin] 500 mg PO BID #20 tab 04/08/20 [Rx] Ketorolac [Toradol] 10 mg PO Q6HR #12 tab 04/08/20 [Rx] Follow up Appointment(s)/Referral(s): Vinay Pak MD [STAFF PHYSICIAN] - 04/17/20 9:30 am Srini Thao DO [Doctor of Osteopathic Medicine] - 1 Week [facility], [NON-STAFF] - As Needed None,Stated [Primary Care Provider] - 1-2 days Yonas Kyle MD [STAFF PHYSICIAN] - 2 Weeks Patient Instructions/Handouts: Video Assisted Thoracoscopic Surgery (DC) Discharge Disposition: HOME SELF-CARE
--- NOTE | 2020-04-08 13:54 | PN ---
PROGRESS NOTE DATE OF SERVICE: 04/08/2020 REASON FOR FOLLOWUP: Pneumonia. INTERVAL HISTORY: The patient is currently afebrile. The patient is breathing comfortably. Denies having any chest pain or shortness of breath with minimal cough. No nausea, no vomiting. No abdominal pain, no diarrhea. PHYSICAL EXAMINATION: Blood pressure 99/60 with a pulse of 73, temperature 98.2. She is 95% on room air. General description is a middle-aged female, up in the bed in no distress. RESPIRATORY SYSTEM: Unlabored breathing, decreased breath sounds in the base, with no wheeze. HEART: S1, S2. Regular rate and rhythm. ABDOMEN: Soft, no tenderness. LABS: Hemoglobin is 10.8, white count 7.6, BUN of 13, creatinine 0.64. DIAGNOSTIC IMPRESSION AND PLAN: Patient with right-sided pneumonia with parapneumonic effusion and initial question for possible abscess, status post thoracocentesis followed by biopsy procedure. Culture so far has been negative. Patient on Rocephin. She was advised to take a course of IV Rocephin 2 g. However, the patient is currently reluctant and wants to go home on oral antibiotics. Prescription for Ceftin has been sent with close outpatient followup. Questions and concerns were answered. MMODL / IJN: [id number] /
== END 2020-04-08 13:42 | disposition home or self-care (01) | DRG 853 ==
LOC: EC 16:36 → 3SCARD 21:15
PROVIDERS: ADMIT Internal Medicine; ATTEND Internal Medicine
PROC: 0W993ZZ Drainage of Right Pleural Cavity, Percutaneous Approach (ICD-10-PCS; 2020-04-01)
PROC: 0BCN4ZZ Extirpation of Matter from Right Pleura, Percutaneous Endoscopic Approach (ICD-10-PCS; principal; 2020-04-04 13:55)
PROC: 05HC33Z Insertion of Infusion Device into Left Basilic Vein, Percutaneous Approach (ICD-10-PCS; 2020-04-07)
DX: A41.9 Sepsis, unspecified organism (principal); J86.9 Pyothorax without fistula; J85.1 Abscess of lung with pneumonia; J69.0 Pneumonitis due to inhalation of food and vomit; D62 Acute posthemorrhagic anemia; J91.8 Pleural effusion in other conditions classified elsewhere; J94.2 Hemothorax; J98.11 Atelectasis; D18.03 Hemangioma of intra-abdominal structures; K57.30 Diverticulosis of large intestine without perforation or abscess without bleeding; F32.9 Major depressive disorder, single episode, unspecified; F41.9 Anxiety disorder, unspecified; G47.33 Obstructive sleep apnea (adult) (pediatric); D64.9 Anemia, unspecified; E66.9 Obesity, unspecified; R13.10 Dysphagia, unspecified; Z20.828 Contact with and (suspected) exposure to other viral communicable diseases; Z68.34 Body mass index [BMI] 34.0-34.9, adult; Z85.820 Personal history of malignant melanoma of skin; Z88.5 Allergy status to narcotic agent; Z98.51 Tubal ligation status; Z98.890 Other specified postprocedural states; Z80.8 Family history of malignant neoplasm of other organs or systems
CPT/HCPCS: 32555; 36410; 36415; 71045; 71046; 71250; 71275; 74177; 76604; 76705; 76937; 80048; 80053; 80202; 81001; 82565; 82728; 82945; 83605; 83615; 83735; 84145; 84157; 84484; 85025; 85027; 85379; 85610; 85730; 86038; 86140; 86850; 86870; 86880; 86900; 86901; 87040; 87070; 87075; 87102; 87116; 87205; 87206; 87252; 87449; 87496; 87498; 87502; 87529; 87634; 87798; 88108; 88305; 89050; 93005; 96365; 96366; 96368; 99285